=== PATIENT | male | born 1960 | race Hispanic/Latino ===

== ENCOUNTER 2018-11-08 15:11 | Observation (INO) | payer BC, SELFPAY ==
[2018-11-08] VITALS (8 sets, daily range): BP systolic 149–164; BP diastolic 87–92; PULSE 68–79; RESP 14–19; TEMP 36.7–37; O2SAT 94–98; BMI 23.8; BMI 23.7
--- NOTE | 2018-11-08 15:35 | EKG12_ITS ---
Test Reason : CHEST PAIN Blood Pressure : / mmHG Vent. Rate : 072 BPM Atrial Rate : 072 BPM P-R Int : 150 ms QRS Dur : 092 ms QT Int : 398 ms P-R-T Axes : 037 -16 029 degrees QTc Int : 435 ms Normal sinus rhythm Normal ECG Confirmed by GLENN BUTCHER, PERCY ([id number]), sound editor JANINA PICKETT ([id number]) on 11/12/2018 1:22:34 PM Referred By: Eulogio Fine Confirmed By:PERCY ELIZABETH MD
--- NOTE | 2018-11-08 15:37 | ED.VISSUMM ---
- ER Visit Summary Date of Service: 11/08/18 Chief Complaint: Chest pain hypertension History of Present Illness: The patient is a 58 M presenting for evaluation secondary to chest pain and hypertension. Patient has an underlying history of hyperlipidemia and hypertension. Patient currently has been having blood pressures this week as high as 170s. Patient states that his blood pressure spikes are associated with chest pain. He reports that he has had continuous chest pain over the course of the last 5 hours. He states that when he gets the pain is associated with dyspnea diaphoresis and some lightheadedness. There is no exertional component associated with this. Patient denies any cardiovascular history, he is never had a stress test. Physical Examination: Vital signs are within normal limits, patient is afebrile. General: Patient is well-nourished well-developed and in no acute distress. Head: Normocephalic, atraumatic Eyes: Pupils equal round and reactive bilaterally, extra occular motion intact bialterally ENT: Moist mucous membranes Neck: Supple, no lymphadenopathy, no JVD, no meningismus CVS: Heart regular rate and rhythm, no murmurs, rubs or gallops, radial pulses 2+ bilaterally Resp: Respirations nondistressed, lung sounds clear bilaterally Abdomen: Soft, nontender, nondistended, no palpable masses, normal bowel sounds Back: Nontender Extremities: Nontender, atraumatic, active full range of motion, no peripheral edema Skin: warm, no rashes, no petechia Neuro: Alert and oriented x 4, CN 2-12 intact, no lateralizing neurological defecits Psyc: Normal affect Test Results: EKG demonstrates sinus rate [address] segments, normal T waves, no evidence of acute ischemia or arrhythmia. CBC chemistry and troponin are negative. Chest x-ray negative. Emergency Department Course and Treatment: Patient presented secondary to chest pain. History sounded somewhat concerning, so workup was obtained which was found to be negative as noted above. Patient's heart score is 4, I believe he requires admission. I will discussed this with the hospitalist. Disposition: Admission Impression: 1. Chest pain This note was generated with [employer] software. It may contain incorrect words, spelling, and punctuation that were not noted in review of the chart prior to signing ED Disposition - Plan for ED Patient: Chief Complaint: Hypertension
--- NOTE | 2018-11-08 15:40 | RAD_ITS ---
STUDY: X-RAY CHEST REASON FOR EXAM: Male, 58 years old. Hypertension. Chest pain. TECHNIQUE: PA and lateral views of the chest. COMPARISON: None. FINDINGS: EKG electrodes are seen. Increased linear markings with areas of confluence in the lower lobes slightly more prominent on the left side in keeping with bibasilar atelectasis. There is no demonstrated pleural abnormality. Normal size heart. Normal mediastinum and brandon. Normal visualized pulmonary arteries. There is atherosclerotic tortuosity of the aortic arch and descending thoracic aorta. Normal visualized thoracic spine. Normal visualized ribs, clavicles, and shoulders. There is no demonstrated abnormality of the visualized soft tissue structures of the upper abdomen. RAD/Chest PA and Lateral IMPRESSION: Increased markings at the lung bases likely worse on the left side suggestive of bibasilar atelectasis. Electronically Signed: Matteo Jasso MD at 15:55 EST Tel [phone], Service support ,
[2018-11-08] MEDS: Aspirin 81 MG TAB.CHEW 324 MG PO (15:42)
[2018-11-08 15:48] LABS: Absolute Lymphocyte Count 2.13 X10^3/ul (0.83-4.51); Absolute Neutrophil Count 5.4 X10^3/uL (2.0-7.7); Basophil# 0.05 X10^3/uL; Basophil% 0.6 % (0-1); Eosinophil# 0.04 X10^3/uL; Eosinophils% 0.5 % (0-5); Hematocrit 44.7 % (40-54); Hemoglobin 15.4 g/dl (13.0-16.5); Lymphocyte # 2.13 X10^3/ul (4.0); Lymphocyte % 25.1 % (19-41); Mean Corp Hgb Conc 34.5 g/gl (32-36); Mean Corpuscular Hgb 28.8 pg (27.0-32.0); Mean Corpuscular Volume 83.6 fL (80-94); Mean Platelet Vol. 9.6 fl (6.2-12.0); Monocyte# 0.89 X10^3/uL; Monocyte% 10.5 % (0-10); Neutrophil # 5.36 X10^3/uL (2.7-7.7); Neutrophil % 63.2 % (47-70); Platelet Count 233 K/mm3 (150-450); RBC Distribution Width CV 12.9 % (11.6-14.6); RBC Distribution Width SD 39.2 fl (35.1-43.9); Red Blood Count 5.35 M/mm3 (4.6-6.2); White Blood Count 8.5 K/mm3 (4.4-11.0)
[2018-11-08 15:54] LABS: POSITIVE COUNT NO; POSITIVE DIFFERENTIAL NO; POSITIVE MORPHOLOGY NO
[2018-11-08 16:02] LABS: Anion Gap 9 (5-15); BUN 15 mg/dL (7-18); BUN/Creat Ratio 13.8 RATIO (10-20); Calcium,Total 8.2 mg/dL (8.5-10.1); Chloride 101 mmol/L (98-107); Creatinine, Serum 1.09 mg/dL (0.70-1.30); EST Glomerular Filtration Rate 74 mL/min (>60); Est Glom Filt Rate - Afr Amer 89 mL/min (>60); Estimated Creatinine Clearance 71.47 ml/min; Glucose 108 mg/dL (74-106); Potassium 3.5 mmol/L (3.5-5.1); Sodium Level 139 mmol/L (136-145)
--- NOTE | 2018-11-08 17:42 | PCM.HP.STD ---
Problem List (1) Chest pain Status: Acute (2) HTN (hypertension) Status: Chronic History of Present Illness Date of Admission: 11/08/18 Chief Complaint: chest pain The patient is a 58 year old M with a pmhx of htn who presents to the ER with c/o chest pain. He describes this as a midsternal ache that feels like he was punched in the chest with radiation straight through to the back, none to the arms or neck, and with associated SOB. It occurred while he was lifting something at work. He currently does not have any chest pain. He has had this for about 1 week. He has no hx of coronary disease. He had a stress test >10 years ago which was negative. He does not speak zimbabwean, his son is present and translating. He denies family hx of heart disease. He did smoke but quit more than 25 years ago. [] Past Medical History Past Medical History (Chronic Problems): Chronic Problems HTN (hypertension) (Chronic) Allergies No Known Allergies Allergy (Verified 11/08/18 15:12) Home Medications: Ambulatory Orders Medication Instructions Recorded Hydrochlorothiazide [Hctz] 25 mg PO DAILY 11/08/18 Lisinopril [Zestril] 40 mg PO DAILY 11/08/18 Meloxicam [Mobic] 15 mg PO DAILY 11/08/18 Pantoprazole Sodium [Protonix] 20 mg PO DAILY 11/08/18 Pravastatin [Pravachol] 80 mg PO QHS 11/08/18 Surgical History: no surgical history Psychiatric History: No pertinent psych hx Lives: With Family Smoking Status: Former smoker Tobacco Use: Non-smoker Alcohol: None Drugs: None - *Family History Maternal History Items: No pertinent history Paternal History Items: No pertinent history Review of Systems Constitutional: Denies: Chills, Fever, Weight Change HEENT: Denies: Head Aches, Sinus Congestion, Sinus Drainage Cardiovascular: Reports: Chest Pain. Denies: Edema, Heaviness, Light Headedness, Palpitations Respiratory: Reports: Shortness of Breath. Denies: Cough, Shortness of breath at rest, Sputum production Gastrointestinal: Denies: Abdominal Pain, Nausea, Vomiting Genitourinary: Denies: Dysuria Musculoskeletal: Denies: Joint Pain, Joint Tenderness Skin: Denies: Rash, Wounds Neurological: Denies: Numbness, Tingling, Focal weakness Psychiatric: Denies: Anxiety, Depression, Homicidal Ideations, Suicidal Ideations Hematologic/ Lymphatic: Denies: Easy Bruising, Easy Bleeding VTE Information - Inpt Only VTE Present on Admission: No VTE Mechan Device Prophylaxis: None VTE Pharm Prophylaxis ordered?: Yes Patient Problems: Active and Suspected Problems Chest pain (Acute) - Physical Exam General: Alert, Oriented x3, Cooperative HEENT: Atraumatic, PERRLA, EOMI, Normocephalic Neck: Supple, No JVD, Negative Carotid Bruits Lungs: Clear to auscultation, Normal air movement Cardiovascular: Regular rate, No murmurs Abdomen: Bowel Sounds Present, Soft, Non Tender Extremities: No edema, Capillary Refill Less than 3 Seconds Skin: No rashes, No breakdown Musculoskeletal: No Tenderness to Palpation of Joints or Extremities Neurological: Cranial nerves II-XII grossly intact Psych/Mental Status: Normal Affect, Appropriate Vital Signs Temp Pulse Resp BP Pulse Ox 98.1 F 73 19 H 151/89 H 94 11/08/18 15:13 11/08/18 17:06 11/08/18 17:06 11/08/18 17:06 11/08/18 17:06 Oxygen Delivery Method Room Air Weight: 157 lb Body Mass Index (BMI) 23.8 Laboratory Tests Past 24 Hrs 11/08/18 11/08/18 15:30 15:30 WBC 8.5 RBC 5.35 Hgb 15.4 Hct 44.7 MCV 83.6 MCH 28.8 MCHC 34.5 RDW 12.9 RDW Differential 39.2 Plt Count 233 MPV 9.6 Immature Gran % (Auto) 0.100 Neut % (Auto) 63.2 Lymph % (Auto) 25.1 Lawrence % (Auto) 10.5 H Eos % (Auto) 0.5 Baso % (Auto) 0.6 Absolute Neuts (auto) 5.4 Absolute Lymphs (auto) 2.13 Total Counted Not Reportable Sodium 139 Potassium 3.5 Chloride 101 Carbon Dioxide 29.0 Anion Gap 9 BUN 15 Creatinine 1.09 Estim Creat Clear Calc 71.47 Est GFR (MDRD) Af Amer 89 Est GFR (MDRD) Non-Af 74 BUN/Creatinine Ratio 13.8 Glucose 108 H Calcium 8.2 L Troponin I < 0.015 Assessment/Plan All Active Problems Chest pain (Acute) 1. Chest pain - trop neg, cxr with atelectasis, EKG neg. Admit to pcu, cycle enzymes, repeat EKG in AM, treadmill stress test in AM. Last stress was >10 years ago, negative at that time. 2. HTN - trend, continue home meds, mildly elevated in ER. 3. Former smoker DVT ppx: lovenox This patient was seen by Torin Curry PA-C under the supervision of Doctor Fine.
[2018-11-08] MEDS: Pravastatin 80 MG Tablet PO (21:04)
[2018-11-09 00:04] VITALS: BP 131/85; PULSE 65; RESP 16; TEMP 36.8; O2SAT 97
[2018-11-09 03:05] VITALS: PULSE 70
[2018-11-09 04:54] LABS: Absolute Lymphocyte Count 2.35 X10^3/ul (0.83-4.51); Absolute Neutrophil Count 4.6 X10^3/uL (2.0-7.7); Basophil# 0.05 X10^3/uL; Basophil% 0.7 % (0-1); Eosinophil# 0.05 X10^3/uL; Eosinophils% 0.7 % (0-5); Hematocrit 45.8 % (40-54); Hemoglobin 15.9 g/dl (13.0-16.5); Lymphocyte # 2.35 X10^3/ul (4.0); Lymphocyte % 30.6 % (19-41); Mean Corp Hgb Conc 34.7 g/gl (32-36); Mean Corpuscular Hgb 28.8 pg (27.0-32.0); Mean Platelet Vol. 9.5 fl (6.2-12.0); Monocyte# 0.65 X10^3/uL; Monocyte% 8.5 % (0-10); Neutrophil # 4.56 X10^3/uL (2.7-7.7); Neutrophil % 59.4 % (47-70); Platelet Count 220 K/mm3 (150-450); RBC Distribution Width SD 39.5 fl (35.1-43.9); Red Blood Count 5.52 M/mm3 (4.6-6.2); White Blood Count 7.7 K/mm3 (4.4-11.0)
[2018-11-09 04:55] LABS: POSITIVE COUNT NO; POSITIVE DIFFERENTIAL NO; POSITIVE MORPHOLOGY NO
[2018-11-09] MEDS: Lisinopril 40 MG Tablet PO (04:57)
[2018-11-09] MEDS: Pantoprazole Sodium 20 MG Tablet PO (04:57)
[2018-11-09 05:00] VITALS: BP 133/88; PULSE 60; RESP 16; TEMP 36.9; O2SAT 99
[2018-11-09 05:01] LABS: Prothrombin Time (Protime)PT. 13.4 SECONDS (11.7-14.9)
[2018-11-09 05:02] LABS: Partial Thromboplast Time 30.4 Seconds (24.1-36.2)
[2018-11-09 05:18] LABS: Anion Gap 9 (5-15); BUN 13 mg/dL (7-18); BUN/Creat Ratio 14.2 RATIO (10-20); Calcium,Total 8.6 mg/dL (8.5-10.1); Chloride 103 mmol/L (98-107); Creatinine, Serum 0.92 mg/dL (0.70-1.30); EST Glomerular Filtration Rate 90 mL/min (>60); Est Glom Filt Rate - Afr Amer 109 mL/min (>60); Estimated Creatinine Clearance 84.67 ml/min; Glucose 95 mg/dL (74-106); Sodium Level 139 mmol/L (136-145)
--- NOTE | 2018-11-09 05:55 | EKG12_ITS ---
Test Reason : AM EKG Blood Pressure : / mmHG Vent. Rate : 061 BPM Atrial Rate : 061 BPM P-R Int : 154 ms QRS Dur : 096 ms QT Int : 424 ms P-R-T Axes : 046 -09 024 degrees QTc Int : 426 ms Normal sinus rhythm Normal ECG When compared with ECG of 08-NOV-2018 17:37, MANUAL COMPARISON REQUIRED, DATA IS UNCONFIRMED Confirmed by GLENN BUTCHER, PERCY ([id number]), editorial project manager JANINA PICKETT ([id number]) on 11/12/2018 2:13:47 PM Referred By: Eulogio Fine Confirmed By:PERCY ELIZABETH MD
[2018-11-09 08:56] VITALS: BP 126/82; PULSE 71; RESP 16; TEMP 36.8; O2SAT 99
[2018-11-09 09:00] VITALS: PULSE 76
--- NOTE | 2018-11-09 09:32 | STRESSREP ---
Stress Test Report Exercise myocardial perfusion stress test. 58-year-old man with a history of chest pain. Medications, hydrochlorothiazide, lisinopril, Protonix. Stress protocol: Resting EKG demonstrates normal sinus rhythm with a rate of 66 bpm normal intervals are noted resting blood pressure 138/80 mmHg. The patient exercised according to regular Chavez protocol for total duration of 10 minutes completing 1 minute into stage IV of the Chavez protocol the maximum heart rate attained was 160 bpm which was 98% of maximum predicted heart rate the maximum workload was 11.7 metabolic equivalents. At rest there were no ST or T wave changes noted suggest ischemia peak exercise upsloping ST changes were noted with normally the criteria for ischemia. The resting blood pressure is 138/90 with a peak blood pressure 168/90 mmHg. No clinical angina was noted. Myocardial perfusion protocol. 11.6 mCi of technetium 99m sestamibi was injected at rest. The patient exercised to consider regular Chavez protocol for 10 minutes and at peak exercise 33.7 mCi of technetium 99m sestamibi was injected stress images were obtained stress and rest images were reconstructed and compared in the short axis vertical long horizontal long axis. Gated images were also obtained per Perfusion SPECT analysis: Review of the stress images demonstrate normal uptake of tracer noted in all areas of the myocardium. The resting images similarly demonstrate normal uptake of tracer noted in all areas of myocardium. No areas of reversibility are noted suggest ischemia. Gated SPECT analysis: The gated ejection fraction is over 80%. Conclusion: Normal exercise myocardial perfusion stress test at a high workload. Preserved ejection fraction.
--- NOTE | 2018-11-09 10:22 | DCINST_ITS ---
- Discharge Diagnoses Current Active Problems: Current Active and Chronic Problems Chest pain (Acute) HTN (hypertension) (Chronic) You will use the following diet at home:: Cardiac Your food should be the consistency of: Regular Your liquids should be the consistency of: Regular/Thin Discharge Activity: Return to Normal Activity Allergies/Adverse Reactions: Allergies No Known Allergies Allergy (Verified 11/08/18 15:12) Medications to take at Discharge Lisinopril [Zestril] 40 mg PO DAILY 11/08/18 Meloxicam [Mobic] 15 mg PO DAILY 11/08/18 Pantoprazole Sodium [Protonix] 20 mg PO DAILY 11/08/18 Pravastatin [Pravachol] 80 mg PO QHS 11/08/18 Hydrochlorothiazide [Hctz] 25 mg PO DAILY #30 tablet 11/09/18 The following prescriptions were given: Hydrochlorothiazide [Hctz] 25 mg PO DAILY #30 tablet Primary Care Physician: Care Physician,No Primary [Primary Care Provider] - Please follow up with your Primary Care Physician in: 1-2 weeks Test Results: Test results from this visit will be discussed in further detail at your follow- up appointment, if applicable. Proposed Discharge Date: 11/09/18
[2018-11-09] MEDS: hydroCHLOROthiazide 12.5mg 12.5 MG PO (10:24)
[2018-11-09] MEDS: Meloxicam 15 MG Tablet PO (10:25)
[2018-11-09 12:14] VITALS: BP 132/81; PULSE 90; RESP 18; TEMP 36.9; O2SAT 98
--- NOTE | 2018-11-09 13:04 | PCM.DC.SUM ---
<Torin Curry - Last Filed: 11/09/18 13:04> Discharge Date and Diagnosis Date of Admission: 11/08/18 Date of Discharge: 11/09/18 - Primary Discharge Diagnosis Chest pain - musculoskeletal HTN Former smoker - Secondary Discharge Diagnosis Chronic Problems HTN (hypertension) (Chronic) Hospital Course and Treatment Imaging Results: 11/09/18 05:55 Nuclear Stress Test - Treadmil [NM] AM (NON MEDS) Operations: None Procedures: Stress test Summary of Care Provided: Hospital course: The patient is a 58 year old M with pmhx of HTN and he is a former smoker, who presented to the ER with c/o midsternal CP described as like being punched in the chest, radiating into the back, that occurred with exertion and was associated with some SOB. He had a negative EKG, negative troponin, negative CXR. He had not had a stress test in >10 years. He was admitted to the PCU on tele. Troponin was cycled, and remained negative. No events on telemetry overnight. Stress test the following morning was negative. Is felt that his chest pain was musculoskeletal in origin. Patient complained of persistently elevated blood pressure at home, it was somewhat elevated while here. It was agreed that he would increase his hydrochlorothiazide to 25 daily. He was discharged home in stable condition. He should follow-up with his primary care physician in 1-2 weeks. This patient was seen by Torin Curry PA-C under the supervision of Doctor Santoro. [] - Physical Exam General: Alert, Oriented x3, Cooperative HEENT: Atraumatic, PERRLA, EOMI, Normocephalic Neck: Supple, No JVD, Negative Carotid Bruits Lungs: Clear to auscultation, Normal air movement Cardiovascular: Regular rate, No murmurs Abdomen: Bowel Sounds Present, Soft, Non Tender Extremities: No edema, Capillary Refill Less than 3 Seconds Skin: No rashes, No breakdown Musculoskeletal: No Tenderness to Palpation of Joints or Extremities Neurological: Cranial nerves II-XII grossly intact Psych/Mental Status: Normal Affect, Appropriate, Alert and oriented to time, place, person, mood and affect Vital Signs Temp Pulse Resp BP Pulse Ox 98.5 F 90 18 132/81 H 98 11/09/18 12:14 11/09/18 12:14 11/09/18 12:14 11/09/18 12:14 11/09/18 12:14 Oxygen Delivery Method Room Air Weight: 156 lb Body Mass Index (BMI) 23.7 Intake and Output for Last 24 Hours 11/07/18 11/08/18 11/09/18 23:59 23:59 23:59 Intake Total 120 / 120 850 / 850 Balance 120 / 120 850 / 850 Laboratory Tests Past 24 Hrs 11/08/18 11/08/18 11/08/18 15:30 15:30 18:50 WBC 8.5 RBC 5.35 Hgb 15.4 Hct 44.7 MCV 83.6 MCH 28.8 MCHC 34.5 RDW 12.9 RDW Differential 39.2 Plt Count 233 MPV 9.6 Immature Gran % (Auto) 0.100 Neut % (Auto) 63.2 Lymph % (Auto) 25.1 Treasure % (Auto) 10.5 H Eos % (Auto) 0.5 Baso % (Auto) 0.6 Absolute Neuts (auto) 5.4 Absolute Lymphs (auto) 2.13 Total Counted Not Reportable PT INR APTT Sodium 139 Potassium 3.5 Chloride 101 Carbon Dioxide 29.0 Anion Gap 9 BUN 15 Creatinine 1.09 Estim Creat Clear Calc 71.47 Est GFR (MDRD) Af Amer 89 Est GFR (MDRD) Non-Af 74 BUN/Creatinine Ratio 13.8 Glucose 108 H Calcium 8.2 L Troponin I < 0.015 < 0.015 11/09/18 11/09/18 11/09/18 04:40 04:40 04:40 WBC 7.7 RBC 5.52 Hgb 15.9 Hct 45.8 MCV 83.0 MCH 28.8 MCHC 34.7 RDW 13.0 RDW Differential 39.5 Plt Count 220 MPV 9.5 Immature Gran % (Auto) 0.100 Neut % (Auto) 59.4 Lymph % (Auto) 30.6 Treasure % (Auto) 8.5 Eos % (Auto) 0.7 Baso % (Auto) 0.7 Absolute Neuts (auto) 4.6 Absolute Lymphs (auto) 2.35 Total Counted Not Reportable PT 13.4 INR 1.0 APTT 30.4 Sodium 139 Potassium 4.0 Chloride 103 Carbon Dioxide 27.0 Anion Gap 9 BUN 13 Creatinine 0.92 Estim Creat Clear Calc 84.67 Est GFR (MDRD) Af Amer 109 Est GFR (MDRD) Non-Af 90 BUN/Creatinine Ratio 14.2 Glucose 95 Calcium 8.6 Troponin I 11/09/18 04:40 WBC RBC Hgb Hct MCV MCH MCHC RDW RDW Differential Plt Count MPV Immature Gran % (Auto) Neut % (Auto) Lymph % (Auto) Treasure % (Auto) Eos % (Auto) Baso % (Auto) Absolute Neuts (auto) Absolute Lymphs (auto) Total Counted PT INR APTT Sodium Potassium Chloride Carbon Dioxide Anion Gap BUN Creatinine Estim Creat Clear Calc Est GFR (MDRD) Af Amer Est GFR (MDRD) Non-Af BUN/Creatinine Ratio Glucose Calcium Troponin I < 0.015 Discharge Diet: Low fat/ Low Cholesterol, 2000 mg Sodium Diet Discharge Activity: Return to Normal Activity Home Medications: Medications to take at Discharge Lisinopril [Zestril] 40 mg PO DAILY 11/08/18 Meloxicam [Mobic] 15 mg PO DAILY 11/08/18 Pantoprazole Sodium [Protonix] 20 mg PO DAILY 11/08/18 Pravastatin [Pravachol] 80 mg PO QHS 11/08/18 Hydrochlorothiazide [Hctz] 25 mg PO DAILY #30 tablet 11/09/18 Following Prescrptions Were Given to Patient: Hydrochlorothiazide [Hctz] 25 mg PO DAILY #30 tablet Primary Care Physician: Care Physician,No Primary [Primary Care Provider] - Please follow up with your Primary Care Physician in: 1-2 weeks Disposition: Home Minutes spent on discharge:: 35 Patient Condition:: Stable Medical Necessity - Tobacco Use Smoking Status: Former smoker Tobacco Use: Non-smoker Meaningful Use Info Meaningful Use Diagnoses (Choose all that apply): None applicable <Evans Santoro - Last Filed: 11/09/18 13:37> Discharge Date and Diagnosis - Secondary Discharge Diagnosis Chronic Problems HTN (hypertension) (Chronic) Hospital Course and Treatment Imaging Results: 11/09/18 05:55 Nuclear Stress Test - Treadmil [NM] AM (NON MEDS) Summary of Care Provided: This patient was seen in conjunction with Torin Curry PA-C . I have independently interviewed and examined the patient and reviewed pertinent historical, laboratory, and other data. Please refer to Torin Curry PA-C note for details of this patient's presentation, findings, and recommendations. I have reviewed Torin Curry PA-C note and concur with documented findings. In brief, patient 58-year-old Algerian-speaking gentleman with history of hypertension who presented with chest pain. Patient was placed on on a monitored bed NH was ruled out with serial cardiac enzymes. Patient subsequently underwent a nuclear stress test which is negative for stress-induced ischemia. - Physical Exam Vital Signs Temp Pulse Resp BP Pulse Ox 98.5 F 90 18 132/81 H 98 11/09/18 12:14 11/09/18 12:14 11/09/18 12:14 11/09/18 12:14 11/09/18 12:14 Oxygen Delivery Method Room Air Weight: 70.76 kg Body Mass Index (BMI) 23.7 Intake and Output for Last 24 Hours 11/07/18 11/08/18 11/09/18 23:59 23:59 23:59 Intake Total 120 / 120 850 / 850 Balance 120 / 120 850 / 850 Laboratory Tests Past 24 Hrs 11/08/18 11/08/18 11/08/18 15:30 15:30 18:50 WBC 8.5 RBC 5.35 Hgb 15.4 Hct 44.7 MCV 83.6 MCH 28.8 MCHC 34.5 RDW 12.9 RDW Differential 39.2 Plt Count 233 MPV 9.6 Immature Gran % (Auto) 0.100 Neut % (Auto) 63.2 Lymph % (Auto) 25.1 Treasure % (Auto) 10.5 H Eos % (Auto) 0.5 Baso % (Auto) 0.6 Absolute Neuts (auto) 5.4 Absolute Lymphs (auto) 2.13 Total Counted Not Reportable PT INR APTT Sodium 139 Potassium 3.5 Chloride 101 Carbon Dioxide 29.0 Anion Gap 9 BUN 15 Creatinine 1.09 Estim Creat Clear Calc 71.47 Est GFR (MDRD) Af Amer 89 Est GFR (MDRD) Non-Af 74 BUN/Creatinine Ratio 13.8 Glucose 108 H Calcium 8.2 L Troponin I < 0.015 < 0.015 11/09/18 11/09/18 11/09/18 04:40 04:40 04:40 WBC 7.7 RBC 5.52 Hgb 15.9 Hct 45.8 MCV 83.0 MCH 28.8 MCHC 34.7 RDW 13.0 RDW Differential 39.5 Plt Count 220 MPV 9.5 Immature Gran % (Auto) 0.100 Neut % (Auto) 59.4 Lymph % (Auto) 30.6 Treasure % (Auto) 8.5 Eos % (Auto) 0.7 Baso % (Auto) 0.7 Absolute Neuts (auto) 4.6 Absolute Lymphs (auto) 2.35 Total Counted Not Reportable PT 13.4 INR 1.0 APTT 30.4 Sodium 139 Potassium 4.0 Chloride 103 Carbon Dioxide 27.0 Anion Gap 9 BUN 13 Creatinine 0.92 Estim Creat Clear Calc 84.67 Est GFR (MDRD) Af Amer 109 Est GFR (MDRD) Non-Af 90 BUN/Creatinine Ratio 14.2 Glucose 95 Calcium 8.6 Troponin I 11/09/18 04:40 WBC RBC Hgb Hct MCV MCH MCHC RDW RDW Differential Plt Count MPV Immature Gran % (Auto) Neut % (Auto) Lymph % (Auto) Treasure % (Auto) Eos % (Auto) Baso % (Auto) Absolute Neuts (auto) Absolute Lymphs (auto) Total Counted PT INR APTT Sodium Potassium Chloride Carbon Dioxide Anion Gap BUN Creatinine Estim Creat Clear Calc Est GFR (MDRD) Af Amer Est GFR (MDRD) Non-Af BUN/Creatinine Ratio Glucose Calcium Troponin I < 0.015 Code Visit OBSV E&M: 78269 Observation care discharge
--- OUTSIDE RECORDS SUMMARY | 2019-02-10 09:17 | XMS RPT_ITS ---
:1960 Author Organization [place] Care Team Providers Name Role Phone RADHA SMITH (PA) Attending Unavailable RADHA SMITH (PA) Attending Unavailable RADHA SMITH (PA) Referring Unavailable GINA VAUGHN (FURNITURE ARRANGER) Attending Unavailable RADHA SMITH (PA) Referring Unavailable RADHA SMITH (PA) Referring Unavailable RADHA SMITH (PA) Attending Unavailable RADHA SMITH (PA) Referring Unavailable GILES, NAT Attending Unavailable GILES, NAT Referring Unavailable OLDER, GINA (FURNITURE ARRANGER) Referring Unavailable JEFF BENAVIDEZ (PA) Attending Unavailable GILES, NAT Referring Unavailable GILES, NAT Attending Unavailable GILES, NAT Referring Unavailable OLDER, GINA (FURNITURE ARRANGER) Attending Unavailable GILES, NAT Referring Unavailable OLDER, GINA (FURNITURE ARRANGER) Referring Unavailable OLDER, GINA (FURNITURE ARRANGER) Attending Unavailable GILES, NAT Referring Unavailable OLDER, GINA (FURNITURE ARRANGER) Attending Unavailable GILES, NAT Referring Unavailable OLDER, GINA (FURNITURE ARRANGER) Attending Unavailable GILES, NAT Referring Unavailable TAHIRA DE LUNA DO Attending Unavailable ETHAN SALMERON, HATTIE Primary Care Unavailable Primay Care Physicia, No Primary Care Unavailable Eulogio Fine Admitting Unavailable Tereletsky, Eulogio Referring Unavailable Evans Santoro Attending Unavailable Babatunde, Eulogio Admitting Unavailable Tereletsky, Eulogio Referring Unavailable Primay Care Physicia, No Primary Care Unavailable Eulogio Fine Consulting Unavailable Eulogio Fine Attending Unavailable Tereletssulaiman, Eulogio Admitting Unavailable Tereletsky, Eulogio Referring Unavailable Primay Care Physicia, No Primary Care Unavailable Evans Santoro Consulting Unavailable Evans Santoro Attending Unavailable Braxton Soliman Attending Unavailable Josefinaeletssulaiman, Eulogio Referring Unavailable PROBLEMS PROBLEMS DATE TYPE CONDITION / CODE ATTENDING STATUS SOURCE 12/01/2018 Unknown R07.9 - Chest pain, JourdanBraxton harry Active [place] unspecified / Community R07.9(ICD-10) Hospital Repository 02/19/2018 Active Other hyperlipidemia NA Active [place] / E78.49(ICD-10) Clinic Main [place] Repository 02/19/2018 Active Other hyperlipidemia NA Active [place] / E78.4(ICD-10) Clinic Main [place] Repository 02/22/2018 Active Hyperlipidemia, NA Active [place] unspecified / Clinic Main E78.5(ICD-10) [place] Repository 02/22/2018 Active Encounter for NA Active [place] screening for Clinic Main malignant neoplasm [place] of prostate / Repository Z12.5(ICD-10) 02/22/2018 Active Encounter for NA Active [place] screening for other Clinic Main viral diseases / [place] Z11.59(ICD-10) Repository 01/27/2018 Active Essential (primary) NA Active [place] hypertension / Clinic Main I10(ICD-10) [place] Repository 02/09/2018 Active Unspecified rotator NA Active [place] cuff tear or rupture Clinic Main of left shoulder, [place] not specified as Repository traumatic / M75.102(ICD-10) 01/06/2018 Active Unknown / VETOVITZ, Active [place] UNK(Unknown) RADHA (KARINA) Clinic Main [place] Repository PROCEDURES PROCEDURES No Procedure Records FoundRESULTS RESULTS PROGRESS Observed: 11/30/2018 Status: COMPLETED Source: [facility] 3:27 PM [facility] REPOSITORY HNO ID: [id number] Author: Gina (Chavo) Older Service: (none) Author Type: Nurse Practitioner Type: Progress Notes Filed: 11/30/2018 3:56 PM Note Text: CC: hospital follow-up HPI Anh Flower is a 58 year old male who presents today for hospital follow-up. Facility: [facility] Date of visit: 11/08 to 11/09 Reason for visit: chest pain, sent from this office to ER Hospital course: EKG, chest x-ray, cycled troponin negative. Stress test normal. Diagnosis: musculoskeletal chest pain, hypertension Discharge: Dose of HCTZ Increased to 25 mg daily Current symptoms: Today patient reports no further episodes of chest pain. Denies shortness of breath, heart palpitations, edema, PND, orthopnea. Taking BP medications as prescribed. BP at home has been in the 120's over 80's. Overall feeling well. Denies any concerns or issues today. REVIEW OF SYSTEMS See HPI PAST MEDICAL HISTORY Diagnosis Date - Diverticulosis 12/05/2014 - Essential hypertension - Hemorrhoids 2014 - Hyperlipidemia PAST SURGICAL HISTORY Procedure Laterality Date - COLONOSCOPY 2013 indirect references. Diverticulosis mentioned. - HEMORRHOIDAL 2014 ALLERGIES Patient has no known allergies. MEDICATIONS pravastatin (PRAVACHOL) 80 mg tablet Take 1 tablet by mouth daily at bedtime. lisinopril (ZESTRIL, PRINIVIL) 40 mg tablet Take 1 tablet by mouth once daily. meloxicam (MOBIC) 15 mg tablet Take 1 tablet by mouth once daily. pantoprazole DR (PROTONIX) 20 mg tablet Take 1 tablet by mouth daily before breakfast. Take on empty stomach, 1/2 hr before meal. hydroCHLOROthiazide (HYDRODIURIL, ESIDRIX) 25 mg tablet Take 1 tablet by mouth once daily. terbinafine HCl (LAMISIL) 250 mg tablet Take 1 tablet by mouth once daily. ACETAMINOPHEN (TYLENOL ORAL) Take 1,000 mg by mouth twice daily. FAMILY HISTORY Problem Relation Age of Onset - Diabetes Mother - Hypertension Father - Cancer Father - Cancer Sister GI Social History Substance Use Topics - Smoking status: Never Smoker - Smokeless tobacco: Never Used - Alcohol use No PHYSICAL EXAM BP 120/88 Pulse 68 Temp 36.8 ?C (98.2 ?F) (Temporal Artery) Resp 14 Wt 68.5 kg (151 lb) SpO2 98% BMI 25.13 kg/m? General Appearance: well appearing, in no acute distress, alert Lungs: lungs clear to auscultation. No wheezing, rhonchi, rales Heart: RRR without murmur, gallop, or rubs. No ectopy BP CONTROLLED (<130/80) due on 1978 ANNUAL PCP TEAM CHRONIC DISEASE VISIT due on 11/08/2019 DIABETES SCREEN due on 09/21/2021 PROSTATE CANCER SCREENING DISCUSSION due on 02/22/2023 LIPID SCREEN due on 09/21/2023 COLORECTAL CANCER SCREENING,SEE MODIFIER due on 12/05/2024 DTAP,TDAP,TD(2 - Td) due on 09/19/2027 INFLUENZA Completed HEPATITIS C SCREENING Completed ASSESSMENT/PLAN: 1. Essential hypertension - ICD9: 401.9, ICD10: I10 (primary diagnosis) - good control - Continue current medication(s) - Encouraged dietary sodium restriction/DASH diet - Recommended regular aerobic exercise. - Recommend home blood pressure monitoring, to bring results in on next visit - Recheck in 6 months, sooner should new symptoms or problems arise. - Reviewed risks of HTN and principles of treatment 2. Hyperlipidemia, unspecified hyperlipidemia type - ICD9: 272.4, ICD10: E78.5 - suboptimal control based on previous labs - Continue current medication. 3. Chest pain Resolved. Cardiac work-up during admission negative, attributed to musculoskeletal cause. Prescription instructions reviewed with patient as applicable. Potential red flag symptoms discussed with the patient. Reviewed appropriate action plan to take if red flag symptoms occur. Patient agreeable to treatment plan. Gina Vaughn APRN.CHAVO CNOV Observed: 11/30/2018 Status: COMPLETED Source: [place] 3:20 PM [facility] REPOSITORY Office Visit (INTMWS) ANH WALLIS ([id number]) 1960 M COMFORT Date Time Provider Department 11/30/18 3:20 PM GINA VAUGHN (CHAVO) INTMWS During your visit today, we recorded the following information about you: Temperature Pulse Respiration Blood pressure 98.2 degrees 68/minute 14/minute 120/88 Weight 68.5 kg Gina Vaughn, [employer]OP[employer] MANAGERSONIA 11/30/2018 3:56 PM Signed CC: hospital follow-up HPI Anh Flower is a 58 year old male who presents today for hospital follow-up. Facility: [facility] Date of visit: 11/08 to 11/09 Reason for visit: chest pain, sent from this office to ER Hospital course: EKG, chest x-ray, cycled troponin negative. Stress test normal. Diagnosis: musculoskeletal chest pain, hypertension Discharge: Dose of HCTZ Increased to 25 mg daily Current symptoms: Today patient reports no further episodes of chest pain. Denies shortness of breath, heart palpitations, edema, PND, orthopnea. Taking BP medications as prescribed. BP at home has been in the 120's over 80's. Overall feeling well. Denies any concerns or issues today. REVIEW OF SYSTEMS See [facility] PAST MEDICAL HISTORY Diagnosis Date - Diverticulosis 12/05/2014 - Essential hypertension - Hemorrhoids 2014 - Hyperlipidemia PAST SURGICAL HISTORY Procedure Laterality Date - COLONOSCOPY 2013 indirect references. Diverticulosis mentioned. - HEMORRHOIDAL 2015 ALLERGIES Patient has no known allergies. MEDICATIONS pravastatin (PRAVACHOL) 80 mg tablet Take 1 tablet by mouth daily at bedtime. lisinopril (ZESTRIL, PRINIVIL) 40 mg tablet Take 1 tablet by mouth once daily. meloxicam (MOBIC) 15 mg tablet Take 1 tablet by mouth once daily. pantoprazole DR (PROTONIX) 20 mg tablet Take 1 tablet by mouth daily before breakfast. Take on empty stomach, 1/2 hr before meal. hydroCHLOROthiazide (HYDRODIURIL, ESIDRIX) 25 mg tablet Take 1 tablet by mouth once daily. terbinafine HCl (LAMISIL) 250 mg tablet Take 1 tablet by mouth once daily. ACETAMINOPHEN (TYLENOL ORAL) Take 1,000 mg by mouth twice daily. FAMILY HISTORY Problem Relation Age of Onset - Diabetes Mother - Hypertension Father - Cancer Father - Cancer Sister GI Social History Substance Use Topics - Smoking status: Never Smoker - Smokeless tobacco: Never Used - Alcohol use No PHYSICAL EXAM BP 120/88 Pulse 68 Temp 36.8 ?C (98.2 ?F) (Temporal Artery) Resp 14 Wt 68.5 kg (151 lb) SpO2 98% BMI 25.13 kg/m? General Appearance: well appearing, in no acute distress, alert Lungs: lungs clear to auscultation. No wheezing, rhonchi, rales Heart: RRR without murmur, gallop, or rubs. No ectopy BP CONTROLLED (<130/80) due on 1978 ANNUAL PCP TEAM CHRONIC DISEASE VISIT due on 11/08/2019 DIABETES SCREEN due on 09/21/2021 PROSTATE CANCER SCREENING DISCUSSION due on 02/22/2023 LIPID SCREEN due on 09/21/2023 COLORECTAL CANCER SCREENING,SEE MODIFIER due on 12/05/2024 DTAP,TDAP,TD(2 - Td) due on 09/19/2027 INFLUENZA Completed HEPATITIS C SCREENING Completed ASSESSMENT/PLAN: 1. Essential hypertension - ICD9: 401.9, ICD10: I10 (primary diagnosis) - good control - Continue current medication(s) - Encouraged dietary sodium restriction/DASH diet - Recommended regular aerobic exercise. - Recommend home blood pressure monitoring, to bring results in on next visit - Recheck in 6 months, sooner should new symptoms or problems arise. - Reviewed risks of HTN and principles of treatment 2. Hyperlipidemia, unspecified hyperlipidemia type - ICD9: 272.4, ICD10: E78.5 - suboptimal control based on previous labs - Continue current medication. 3. Chest pain Resolved. Cardiac work-up during admission negative, attributed to musculoskeletal cause. Prescription instructions reviewed with patient as applicable. Potential red flag symptoms discussed with the patient. Reviewed appropriate action plan to take if red flag symptoms occur. Patient agreeable to treatment plan. Gina Vaughn APRN.FURNITURE ARRANGER Referring Provider: BRUNO GILES [[id number]] Allergies As of Date: 11/30/2018 (No Known Allergies) Date Reviewed: 11/30/2018 Reviewed by: Yasmeen N Nenadal Main [place] - Fully Assessed Primary Visit Diagnosis:Essential hypertension [I10] Other Visit Diagnosis:Hyperlipidemia, unspecified hyperlipidemia type [E78.5] Order(s):meloxicam (MOBIC) 15 mg tabletTake 1 tablet by mouth once daily.Disp: 30 tabletRfl: 5 Prescriptions as of 11/30/2018 Sig: MELOXICAM 15 MG TABLET Take 1 tablet by mouth once d* PRAVASTATIN 80 MG TABLET Take 1 tablet by mouth daily * LISINOPRIL 40 MG TABLET Take 1 tablet by mouth once d* PANTOPRAZOLE 20 MG TABLET,DEL* Take 1 tablet by mouth daily * HYDROCHLOROTHIAZIDE 25 MG TAB* Take 1 tablet by mouth once d* TERBINAFINE HCL 250 MG TABLET Take 1 tablet by mouth once d* TYLENOL ORAL Take 1,000 mg by mouth twice * Problem List As Of Date 11/30/2018 Noted Resolved Hematuria [R31.9] INVALID FOR* Right flank pain [R10.9] INVALID FOR*02/19/2018 Essential hypertension [I10] Hyperlipidemia, unspecified [E78.5] Left shoulder pain [M25.512] INVALID FOR* Prescriptions ordered this encounter Disp Refills Start End MELOXICAM 15 MG TABLET 30 t* 5 11/30/2018 Route: ORAL Sig: Take 1 tablet by mouth once daily. Medications Discontinued During This Encounter meloxicam (MOBIC) 15 mg tablet 30 t* 2 09/21/2018 11/30/2018 Route: ORAL Sig: Take 1 tablet by mouth once daily. Disc: Reason for discontinue is not on file. Encounter Status:Closed by GINA VAUGHN CNP on 11/30/18 12 LEAD ELECTROCARDIOGRAM Observed: 11/12/2018 Status: F Source: [place] 2:14 PM [facility] [place] Cardiovascular Services [address] [place] [address] 12 Lead EKG 11/09/18 0534 MR#: [id number] Acct: [id number] Name: ANH RAMIREZ Kenny Rep #: [id number] : 1960 58 From: Braxton Soliman MD Attending Dr: Evans Santoro MD Status: DIS NEIDA Ordering Dr: Edmond Morgan MD Date: 11/09/18 Location: [facility] Sex: M H Admitted: 11/08/18 Test Reason : AM EKG Blood Pressure : / mmHG Vent. Rate : 061 BPM Atrial Rate : 061 BPM P-R Int : 154 ms QRS Dur : 096 ms QT Int : 424 ms P-R-T Axes : 046 -09 024 degrees QTc Int : 426 ms Normal sinus rhythm Normal ECG When compared with ECG of 08-NOV-2018 17:37, MANUAL COMPARISON REQUIRED, DATA IS UNCONFIRMED Confirmed by BRAXTON SOLIMAN MD ([id number]), JANINA Taylor ([id number]) on 11/12/2018 2:13:47 PM Referred By: Eulogio Fine Confirmed By:BRAXTON SOLIMAN MD 11/12/18 1413 Date Braxton Soliman MD CC: No Primary Care Physician; Evans Santoro MD; Eulogio Fine DO; Edmond Morgan MD Signed 12 LEAD ELECTROCARDIOGRAM Observed: 11/12/2018 Status: F Source: [place] 1:22 PM [facility] Cardiovascular Services [address] [place] [id number] 12 Lead EKG 11/08/18 1522 MR#: [id number] Acct: [id number] Name: ANH RAMIREZ Rep #: [id number] : 1960 58 From: Braxton Soliman MD Attending Dr: Evans Santoro MD Status: DIS NEIDA Ordering Dr: Servando De Paz MD Date: 11/08/18 Location: [facility] Sex: M H Admitted: 11/08/18 Test Reason : CHEST PAIN Blood Pressure : / mmHG Vent. Rate : 072 BPM Atrial Rate : 072 BPM P-R Int : 150 ms QRS Dur : 092 ms QT Int : 398 ms P-R-T Axes : 037 -16 029 degrees QTc Int : 435 ms Normal sinus rhythm Normal ECG Confirmed by BRAXTON SOLIMAN MD ([id number]), assistant editor JANINA PICKETT ([id number]) on 11/12/2018 1:22:34 PM Referred By: Eulogio Fine Confirmed By:BRAXTON SOLIMAN MD 11/12/18 1322 Date Braxton Soliman MD CC: No Primary Care Physician; Evans Santoro MD; Eulogio Fine DO; Servando De Paz Signed DISCHARGE SUMMARY Observed: 11/09/2018 Status: F Source: [place] 1:38 PM [facility] Medical Records Department [address] [place] [address] Discharge Summary 11/09/18 1304 MR#: [id number] Acct: [id number] Name: ANH RAMIREZ Rep #: [id number] : 1960 58 From: Torin COLLINS PCP: Care Physician, No Primary Status: DIS NEIDA Y Location: [place] [address]-1 <Torin Curry - Last Filed: 11/09/18 13:04> Discharge Date and Diagnosis Date of Admission: 11/08/18 Date of Discharge: 11/09/18 - Primary Discharge Diagnosis Chest pain - musculoskeletal HTN Former smoker - Secondary Discharge Diagnosis Chronic Problems HTN (hypertension) (Chronic) Hospital Course and Treatment Imaging Results: 11/09/18 05:55 Nuclear Stress Test - Treadmil [NM] AM (NON MEDS) Operations: None Procedures: Stress test Summary of Care Provided: Hospital course: The patient is a 58 year old M with pmhx of HTN and he is a former smoker, who presented to the ER with c/o midsternal CP described as like being punched in the chest, radiating into the back, that occurred with exertion and was associated with some SOB. He had a negative EKG, negative troponin, negative CXR. He had not had a stress test in >10 years. He was admitted to the PCU on tele. Troponin was cycled, and remained negative. No events on telemetry overnight. Stress test the following morning was negative. Is felt that his chest pain was musculoskeletal in origin. Patient complained of persistently elevated blood pressure at home, it was somewhat elevated while here. It was agreed that he would increase his hydrochlorothiazide to 25 daily. He was discharged home in stable condition. He should follow-up with his primary care physician in 1-2 weeks. This patient was seen by Torin Curry PA-C under the supervision of Doctor Yvan. [] - Physical Exam General: Alert, Oriented x3, Cooperative HEENT: Atraumatic, PERRLA, EOMI, Normocephalic Neck: Supple, No JVD, Negative Carotid Bruits Lungs: Clear to auscultation, Normal air movement Cardiovascular: Regular rate, No murmurs Abdomen: Bowel Sounds Present, Soft, Non Tender Extremities: No edema, Capillary Refill Less than 3 Seconds Skin: No rashes, No breakdown Musculoskeletal: No Tenderness to Palpation of Joints or Extremities Neurological: Cranial nerves II-XII grossly intact Psych/Mental Status: Normal Affect, Appropriate, Alert and oriented to time, place, person, mood and affect Vital Signs Temp Pulse Resp BP Pulse Ox 98.5 F 90 18 132/81 H 98 11/09/18 12:14 11/09/18 12:14 11/09/18 12:14 11/09/18 12:14 11/09/18 12:14 Oxygen Delivery Method Room Air Weight: 156 lb Body Mass Index (BMI) 23.7 Intake and Output for Last 24 Hours Intake Total 120 / 120 850 / 850 Balance 120 / 120 850 / 850 Laboratory Tests Past 24 Hrs WBC RBC Hgb Hct MCV MCH MCHC RDW RDW Differential Plt Count MPV Immature Gran % (Auto) Neut % (Auto) Discharge Diet: Low fat/ Low Cholesterol, 2000 mg Sodium Diet Discharge Activity: Return to Normal Activity Home Medications: Medications to take at Discharge Lisinopril [Zestril] 40 mg PO DAILY 11/08/18 Meloxicam [Mobic] 15 mg PO DAILY 11/08/18 Pantoprazole Sodium [Protonix] 20 mg PO DAILY 11/08/18 Pravastatin [Pravachol] 80 mg PO QHS 11/08/18 Hydrochlorothiazide [Hctz] 25 mg PO DAILY #30 tablet 11/09/18 Following Prescrptions Were Given to Patient: Hydrochlorothiazide [Hctz] 25 mg PO DAILY #30 tablet Primary Care Physician: Care Physician,No Primary [Primary Care Provider] - Please follow up with your Primary Care Physician in: 1-2 weeks Disposition: Home Minutes spent on discharge:: 35 Patient Condition:: Stable Medical Necessity - Tobacco Use Smoking Status: Former smoker Tobacco Use: Non-smoker Meaningful Use Info Meaningful Use Diagnoses (Choose all that apply): None applicable <Evans Santoro - Last Filed: 11/09/18 13:37> Discharge Date and Diagnosis - Secondary Discharge Diagnosis Chronic Problems HTN (hypertension) (Chronic) Hospital Course and Treatment Imaging Results: 11/09/18 05:55 Nuclear Stress Test - Treadmil [NM] AM (NON MEDS) Summary of Care Provided: This patient was seen in conjunction with Torin Curry PA-C . I have independently interviewed and examined the patient and reviewed pertinent historical, laboratory, and other data. Please refer to Torin Curry PA-C note for details of this patient's presentation, findings, and recommendations. I have reviewed Torin Curry PA-C note and concur with documented findings. In brief, patient 58-year-old Palauan-speaking gentleman with history of hypertension who presented with chest pain. Patient was placed on on a monitored bed [place] was ruled out with serial cardiac enzymes. Patient subsequently underwent a nuclear stress test which is negative for stress-induced ischemia. - Physical Exam Vital Signs Temp Pulse Resp BP Pulse Ox 98.5 F 90 18 132/81 H 98 11/09/18 12:14 11/09/18 12:14 11/09/18 12:14 11/09/18 12:14 11/09/18 12:14 Oxygen Delivery Method Room Air Weight: 70.76 kg Body Mass Index (BMI) 23.7 Intake and Output for Last 24 Hours Intake Total 120 / 120 850 / 850 Balance 120 / 120 850 / 850 Laboratory Tests Past 24 Hrs WBC RBC Hgb Hct MCV MCH MCHC RDW RDW Differential Plt Count MPV Immature Gran % (Auto) Neut % (Auto) Code Visit OBSV E AND M: [id number] Observation care discharge 11/09/18 1309 <Electronically signed by Torin COLLINS> Date Torin COLLINS 11/09/18 1338<Electronically signed by Evans Santoro MD> Cosigner Signature (if applicable): Date Evans Santoro MD CC: No Primary Care Physician; KARINA Curry; Evans Santoro MD Signed DISCHARGE INSTRUCTION Observed: 11/09/2018 Status: F Source: [place] 10:22 AM [facility] [place] Medical Records Department [address] [place] [address] Instructions for Home/Discharge Instructions 11/09/18 1021 MR#: [id number] Acct: [id number] Name: ANH RAMIREZ Rep #: [id number] : 1960 58 From: Torin COLLINS PCP: Care Physician, No Primary Status: ADM NEIDA - Discharge Diagnoses Current Active Problems: Current Active and Chronic Problems Chest pain (Acute) HTN (hypertension) (Chronic) You will use the following diet at home:: Cardiac Your food should be the consistency of: Regular Your liquids should be the consistency of: Regular/Thin Discharge Activity: Return to Normal Activity Allergies/Adverse Reactions: Allergies No Known Allergies Allergy (Verified 11/08/18 15:12) Medications to take at Discharge Lisinopril [Zestril] 40 mg PO DAILY 11/08/18 Meloxicam [Mobic] 15 mg PO DAILY 11/08/18 Pantoprazole Sodium [Protonix] 20 mg PO DAILY 11/08/18 Pravastatin [Pravachol] 80 mg PO QHS 11/08/18 Hydrochlorothiazide [Hctz] 25 mg PO DAILY #30 tablet 11/09/18 The following prescriptions were given: Hydrochlorothiazide [Hctz] 25 mg PO DAILY #30 tablet Primary Care Physician: Care Physician,No Primary [Primary Care Provider] - Please follow up with your Primary Care Physician in: 1-2 weeks Test Results: Test results from this visit will be discussed in further detail at your follow-up appointment, if applicable. Proposed Discharge Date: 11/09/18 11/09/18 1022 <Electronically signed by Torin COLLINS> Date Torin COLLINS CC: No Primary Care Physician STRESS REPORT Observed: 11/09/2018 Status: F Source: [place] 9:38 AM [facility] [place] Cardiovascular Services [address] [place] [address] MR#: [id number] Acct: [id number] Name: ANH RAMIREZ Rep #: [id number] : 1960 58 From: Braxton Soliman MD Primary Care: Care Physician, No Primary Status: ADM NEIDA Ordering Dr: Sex: M H Stress Test Report Exercise myocardial perfusion stress test. 58-year-old man with a history of chest pain. Medications, hydrochlorothiazide, lisinopril, Protonix. Stress protocol: Resting EKG demonstrates normal sinus rhythm with a rate of 66 bpm normal intervals are noted resting blood pressure 138/80 mmHg. The patient exercised according to regular Chavez protocol for total duration of 10 minutes completing 1 minute into stage IV of the Chavez protocol the maximum heart rate attained was 160 bpm which was 98% of maximum predicted heart rate the maximum workload was 11.7 metabolic equivalents. At rest there were no ST or T wave changes noted suggest ischemia peak exercise upsloping ST changes were noted with normally the criteria for ischemia. The resting blood pressure is 138/90 with a peak blood pressure 168/90 mmHg. No clinical angina was noted. Myocardial perfusion protocol. 11.6 mCi of technetium 99m sestamibi was injected at rest. The patient exercised to consider regular Chavez protocol for 10 minutes and at peak exercise 33.7 mCi of technetium 99m sestamibi was injected stress images were obtained stress and rest images were reconstructed and compared in the short axis vertical long horizontal long axis. Gated images were also obtained per Perfusion SPECT analysis: Review of the stress images demonstrate normal uptake of tracer noted in all areas of the myocardium. The resting images similarly demonstrate normal uptake of tracer noted in all areas of myocardium. No areas of reversibility are noted suggest ischemia. Gated SPECT analysis: The gated ejection fraction is over 80%. Conclusion: Normal exercise myocardial perfusion stress test at a high workload. Preserved ejection fraction. 11/09/18 0938 <Electronically signed by Braxton Soliman MD> Date Braxton Soliman MD CC: No Primary Care Physician; Evans Santoro MD; Eulogio Pinedaky DO Date Dictated: 11/09/18931 Date Transcribed: 11/09/18931 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: CO Signed CBC W/DIFF, AUTOMATED Collected: 11/09/2018 Status: F Source: [place] 4:40 AM [facility] TYPE CODE TESTS RESULT OUT OF RANGE REFERENCE UNITS LAB L100.1000 4.4-11.0 K/mm3 Normal WBC 7.7 LAB L100.1200 4.6-6.2 M/mm3 Normal RBC 5.52 LAB L100.1300 13.0-16.5 g/dl Normal HGB 15.9 LAB L100.1400 40-54 % Normal HCT 45.8 LAB L100.1500 80-94 fL Normal MCV 83.0 LAB L100.1600 27.0-32.0 pg Normal MCH 28.8 LAB L100.1700 32-36 g/gl Normal MCHC 34.7 LAB L100.1810 11.6-14.6 % Normal RDW CV 13.0 LAB L100.1820 35.1-43.9 fl Normal RDW SD 39.5 LAB L100.1900 150-450 K/mm3 Normal PLT 220 LAB L100.2000 6.2-12.0 fl Normal MPV 9.5 LAB L100.2100 47-70 % Normal NEUT% 59.4 LAB L100.2200 19-41 % Normal LY% 30.6 LAB L100.2300 0-10 % Normal MONO% 8.5 LAB L100.2400 0-5 % Normal EO% 0.7 LAB L100.2500 0-1 % Normal BASO% 0.7 LAB L100.2550 0.0-0.9 % Normal IM GRAN % 0.100 Result Comment: IG% - Immature Granulocytes (promyelocytes, myelocytes and metamyelocytes) > 1% indicates that a LEFT SHIFT is Present. LAB L100.2620 2.0-7.7 X10 3/uL Normal Absolute Neut 4.6 LAB L100.2720 0.83-4.51 X10 3/ul Normal Absolute Lymph 2.35 Performed By: #### L100.0100 #### [facility] [place], [address] PROTHROMBIN TIME W/INR Collected: 11/09/2018 Status: F Source: [place] 4:40 AM [facility] [place] TYPE CODE TESTS RESULT OUT OF RANGE REFERENCE UNITS LAB L300.4150 11.7-14.9 SECONDS Normal PROTIME 13.4 LAB L300.4200 Normal INR 1.0 Performed By: #### L300.3900, L300.4310 #### [facility] [address] [place], [place], [address] PARTIAL THROMBOPLAST Collected: 11/09/2018 Status: F Source: [place] TIME 4:40 AM [facility] [place] TYPE CODE TESTS RESULT OUT OF RANGE REFERENCE UNITS LAB L300.4310 24.1-36.2 Seconds Normal PTT 30.4 Performed By: #### L300.3900, L300.4310 #### [facility] [address] [place], [address] BASIC METABOLIC Collected: 11/09/2018 Status: F Source: [place] PROFILE (BMP) 4:40 AM [facility] [place] TYPE CODE TESTS RESULT OUT OF RANGE REFERENCE UNITS LAB L501.0100 74-106 mg/dL Normal GLU 95 Result Comment: Please note revised GLUCOSE reference range effective 2017. LAB L501.1000 7-18 mg/dL Normal BUN 13 LAB L501.1100 0.70-1.30 mg/dL Normal CREAT,SERUM 0.92 Result Comment: The validity of the calculated GFR AND GFRAA in patients over 70 years has not been determined. Clinical correlation is essential. LAB L501.1110 >60 mL/min Normal EST GFR 90 Result Comment: Non- GFR Calc LAB L501.1115 >60 mL/min Normal EST GFR - AA 109 Result Comment: GFR Calc LAB L501.1255 ml/min Normal Estimated CRCL 84.67 LAB L501.1300 10-20 RATIO Normal BUN/CRE 14.2 LAB L501.2200 8.5-10 mg/dL Normal .1 CA 8.6 LAB L501.5300 136-14 mmol/L Normal 5 NA 139 LAB L501.5600 3.5-5. mmol/L Normal 1 K 4.0 LAB L501.5900 98-107 mmol/L Normal CL 103 LAB L501.6100 21.0-3 mmol/L Normal 2.0 CO2 27.0 LAB L501.6200 5-15 Normal GAP 9 Performed By: #### L500.2500 #### [facility] [address] [place], [address] TROPONIN-I Collected: 11/09/2018 Status: F Source: [place] 4:40 AM [facility] [place] Order Comment: 'TROP' Serial specimen #1, #2 or #3: 3 TYPE CODE TESTS RESULT OUT OF RANGE REFERENCE UNITS LAB L501.4010 <0.045 ng/mL Normal < 0.015 TROPONIN-I Result Comment: TROPONIN-I EXPECTED VALUES <0.045 Negative 0.045 - 0.590 Consistent with Cardiac Damage > OR = 0.600 Critical Value Not every elevated troponin is indicative of FL. These values should be used with clinical judgement in examining the patient's clinical picture for diagnosis. To establish a diagnosis of FL versus myocardial injury, there must be a demonstrated rise and/or fall in the troponin values, in addition to ischemic symptoms, EKG changes, new regional wall motion abnormality, and/or angiographical evidence. PLEASE NOTE: REFERENCE RANGES EDITED 18 Performed By: #### L501.4010 #### [facility] [address] [place], [address] EMERGENCY DEPARTMENT Observed: 11/09/2018 Status: F Source: [place] SUMMARY 12:19 AM [facility] [place] [facility] Medical Records Department [address] [place] [address] Emergency Department Summary 11/08/18 1537 MR#: [id number] Acct: [id number] Name: ANH RAMIREZ Rep #: [id number] : 1960 58 From: Servando De Paz MD PCP: Care Physician, No Primary Status: ADM NE[place] - ER Visit Summary Date of Service: 11/08/18 Chief Complaint: Chest pain hypertension History of Present Illness: The patient is a 58 M presenting for evaluation secondary to chest pain and hypertension. Patient has an underlying history of hyperlipidemia and hypertension. Patient currently has been having blood pressures this week as high as 170s. Patient states that his blood pressure spikes are associated with chest pain. He reports that he has had continuous chest pain over the course of the last 5 hours. He states that when he gets the pain is associated with dyspnea diaphoresis and some lightheadedness. There is no exertional component associated with this. Patient denies any cardiovascular history, he is never had a stress test. Physical Examination: Vital signs are within normal limits, patient is afebrile. General: Patient is well-nourished well-developed and in no acute distress. Head: Normocephalic, atraumatic Eyes: Pupils equal round and reactive bilaterally, extra occular motion intact bialterally ENT: Moist mucous membranes Neck: Supple, no lymphadenopathy, no JVD, no meningismus CVS: Heart regular rate and rhythm, no murmurs, rubs or gallops, radial pulses 2+ bilaterally Resp: Respirations nondistressed, lung sounds clear bilaterally Abdomen: Soft, nontender, nondistended, no palpable masses, normal bowel sounds Back: Nontender Extremities: Nontender, atraumatic, active full range of motion, no peripheral edema Skin: warm, no rashes, no petechia Neuro: Alert and oriented x 4, CN 2-12 intact, no lateralizing neurological defecits Psyc: Normal affect Test Results: EKG demonstrates sinus rate [address] segments, normal T waves, no evidence of acute ischemia or arrhythmia. CBC chemistry and troponin are negative. Chest x-ray negative. Emergency Department Course and Treatment: Patient presented secondary to chest pain. History sounded somewhat concerning, so workup was obtained which was found to be negative as noted above. Patient's heart score is 4, I believe he requires admission. I will discussed this with the hospitalist. Disposition: Admission Impression: 1. Chest pain This note was generated with Solex[employer] dictation software. It may contain incorrect words, spelling, and punctuation that were not noted in review of the chart prior to signing ED Disposition - Plan for ED Patient: Chief Complaint: Hypertension What to do if you have Problems For any increased pain, shortness of breath, bleeding, nausea or vomiting, chest pain, or any unexpected problems, contact your Primary Care Provider. Call [facility] ([phone]) or report to the closest Emergency Room. Call 911 if necessary. 11/09/18 0019 <Electronically signed by Servando De Paz MD> Date Servando Canales Signature (If Indicated): Date CC: No Primary Care Physician HISTORY AND PHYSICAL Observed: 11/08/2018 Status: F Source: [place] EXAM 9:38 PM [facility] [place] [facility] Medical Records Department [address] [place] [address] History and Physical 11/08/18 1742 MR#: [id number] Acct: [id number] Name: ANH RAMIREZ Rep #: [id number] : 1960 58 From: Torin COLLINS PCP: Care Physician, No Primary Status: ADM NEIDA Y Location: [place] [address] ADDENDUM by Eulogio Fine DO on 11/08/18 at 2137 Code Visit Was seen and examined independently of Torin Curry. Patient came to the emergency room at [facility] today with complaints of precordial chest pain which he describes as dull in nature, it started today while he was at work doing heavy lifting. Patient told the emergency room physician today that the chest pain had been continuous over the past 5 hours prior to being seen in the emergency room. Patient does not speak any Greek, his son is in the room as an ui designer. Evaluation in the emergency room included an EKG which showed a normal sinus rhythm at 72, CBC, chemistry, and troponins were all negative. Patient's chest x-ray was negative for pathology. Physical exam: On examination he appeared in good health and spirits. Vital signs as documented. Skin warm and dry and without overt rashes. Neck without JVD. Lungs clear. Heart exam notable for regular rhythm, normal sounds and absence of murmurs, rubs or gallops. Abdomen unremarkable and without evidence of organomegaly, masses, or abdominal aortic enlargement. Extremities nonedematous. Neuro: Cranial nerves II through XII are grossly intact, no focal motor deficits were noted. Psych: Patient is alert and oriented x3, he is appropriate, he does not appear anxious or depressed. According to the emergency room documentation, patient's chest pain resolved during his stay in the emergency room, his blood pressure at times in the ER was noted to be elevated but at the time of my examination, the patient's systolic blood pressure reading was 151. Patient states that he has had a stress test in the past but it has been many years ago and this stress test was negative. Patient will be placed and observation status on PCU, serial cardiac enzymes will be obtained, if these remain negative, patient will undergo an exercise nuclear stress test tomorrow. I do not feel the patient needs an echocardiogram at this point, his blood pressure will be monitored, it may be necessary to add on extra blood pressure medications if it is not under control. I have reviewed Torin Curry's history and physical including his medical plan of care and medical assessment and endorse it. OBSV E AND M: [id number] Initial observation care L3 11/08/182137 <Electronically signed by Eulogio Fine DO> Date Eulogio Fine DO cc: No Primary Care Physician; KARINA Curry; Eulogio Fine DO * Signed Problem List (1) Chest pain Status: Acute (2) HTN (hypertension) Status: Chronic History of Present Illness Date of Admission: 11/08/18 Chief Complaint: chest pain The patient is a 58 year old M with a pmhx of htn who presents to the ER with c/o chest pain. He describes this as a midsternal ache that feels like he was punched in the chest with radiation straight through to the back, none to the arms or neck, and with associated SOB. It occurred while he was lifting something at work. He currently does not have any chest pain. He has had this for about 1 week. He has no hx of coronary disease. He had a stress test >10 years ago which was negative. He does not speak wolof, his son is present and translating. He denies family hx of heart disease. He did smoke but quit more than 25 years ago. [] Past Medical History Past Medical History (Chronic Problems): Chronic Problems HTN (hypertension) (Chronic) Allergies No Known Allergies Allergy (Verified 11/08/18 15:12) Home Medications: Ambulatory Orders Medication Instructions Recorded Hydrochlorothiazide [Hctz] 25 mg PO DAILY 11/08/18 Surgical History: no surgical history Psychiatric History: No pertinent psych hx Lives: With Family Smoking Status: Former smoker Tobacco Use: Non-smoker Alcohol: None Drugs: None - *Family History Maternal History Items: No pertinent history Paternal History Items: No pertinent history Review of Systems Constitutional: Denies: Chills, Fever, Weight Change HEENT: Denies: Head Aches, Sinus Congestion, Sinus Drainage Cardiovascular: Reports: Chest Pain. Denies: Edema, Heaviness, Light Headedness, Palpitations Respiratory: Reports: Shortness of Breath. Denies: Cough, Shortness of breath at rest, Sputum production Gastrointestinal: Denies: Abdominal Pain, Nausea, Vomiting Genitourinary: Denies: Dysuria Musculoskeletal: Denies: Joint Pain, Joint Tenderness Skin: Denies: Rash, Wounds Neurological: Denies: Numbness, Tingling, Focal weakness Psychiatric: Denies: Anxiety, Depression, Homicidal Ideations, Suicidal Ideations Hematologic/ Lymphatic: Denies: Easy Bruising, Easy Bleeding VTE Information - Inpt Only VTE Present on Admission: No VTE Mechan Device Prophylaxis: None VTE Pharm Prophylaxis ordered?: Yes Patient Problems: Active and Suspected Problems Chest pain (Acute) - Physical Exam General: Alert, Oriented x3, Cooperative HEENT: Atraumatic, PERRLA, EOMI, Normocephalic Neck: Supple, No JVD, Negative Carotid Bruits Lungs: Clear to auscultation, Normal air movement Cardiovascular: Regular rate, No murmurs Abdomen: Bowel Sounds Present, Soft, Non Tender Extremities: No edema, Capillary Refill Less than 3 Seconds Skin: No rashes, No breakdown Musculoskeletal: No Tenderness to Palpation of Joints or Extremities Neurological: Cranial nerves II-XII grossly intact Psych/Mental Status: Normal Affect, Appropriate Vital Signs Temp Pulse Resp BP Pulse Ox 98.1 F 73 19 H 151/89 H 94 11/08/18 15:13 11/08/18 17:06 11/08/18 17:06 11/08/18 17:06 11/08/18 17:06 Oxygen Delivery Method Room Air Weight: 157 lb Body Mass Index (BMI) 23.8 Laboratory Tests Past 24 Hrs WBC 8.5 RBC 5.35 Hgb 15.4 Hct 44.7 MCV 83.6 MCH 28.8 MCHC 34.5 RDW 12.9 RDW Differential 39.2 Assessment/Plan All Active Problems Chest pain (Acute) 1. Chest pain - trop neg, cxr with atelectasis, EKG neg. Admit to pcu, cycle enzymes, repeat EKG in AM, treadmill stress test in AM. Last stress was >10 years ago, negative at that time. 2. HTN - trend, continue home meds, mildly elevated in ER. 3. Former smoker DVT ppx: lovenox This patient was seen by Torin Curry PA-C under the supervision of Doctor Babatunde. 11/08/180 <Electronically signed by Torin COLLINS> Date Torin COLLINS 11/08/182132<Electronically signed by Eulogio Fine DO> Cosigner Signature: Date (if applicable) Eulogio Fine DO CC: No Primary Care Physician; KARINA Curry; Eulogio Fine DO Signed TROPONIN-I Collected: 11/08/2018 Status: F Source: [place] 6:50 PM [facility] [place] Order Comment: 'TROP' Serial specimen #1, #2 or #3: 2 TYPE CODE TESTS RESULT OUT OF RANGE REFERENCE UNITS LAB L501.4010 <0.045 ng/mL Normal < 0.015 TROPONIN-I Result Comment: TROPONIN-I EXPECTED VALUES <0.045 Negative 0.045 - 0.590 Consistent with Cardiac Damage > OR = 0.600 Critical Value Not every elevated troponin is indicative of FL. These values should be used with clinical judgement in examining the patient's clinical picture for diagnosis. To establish a diagnosis of FL versus myocardial injury, there must be a demonstrated rise and/or fall in the troponin values, in addition to ischemic symptoms, EKG changes, new regional wall motion abnormality, and/or angiographical evidence. PLEASE NOTE: REFERENCE RANGES EDITED 18 Performed By: #### L501.4010 #### [facility] [address] [place], [address] CHEST PA AND LATERAL Observed: 11/08/2018 Status: F Source: [place] 3:36 PM [facility] [place] [facility] Imaging Services [address] [place] [address] Chest PA and Lateral MR#: [id number] Acct: [id number] Name: ANH RAMIREZ Rep #: [id number] : 1960 M 58 From: Matteo Jasso MD PCP: Status: PRE ER Study: Chest PA and Lateral Date of Exam: 11/08/18 Exam# [id number] Ordering Dr: Servando De Paz MD STUDY: X-RAY CHEST REASON FOR EXAM: Male, 58 years old. Hypertension. Chest pain. TECHNIQUE: PA and lateral views of the chest. COMPARISON: None. FINDINGS: EKG electrodes are seen. Increased linear markings with areas of confluence in the lower lobes slightly more prominent on the left side in keeping with bibasilar atelectasis. There is no demonstrated pleural abnormality. Normal size heart. Normal mediastinum and brandon. Normal visualized pulmonary arteries. There is atherosclerotic tortuosity of the aortic arch and descending thoracic aorta. Normal visualized thoracic spine. Normal visualized ribs, clavicles, and shoulders. There is no demonstrated abnormality of the visualized soft tissue structures of the upper abdomen. RAD/Chest PA and Lateral IMPRESSION: Increased markings at the lung bases likely worse on the left side suggestive of bibasilar atelectasis. Electronically Signed: Matteo Jasso MD at 15:55 EST Tel [phone], Service support , CC: Servando De Paz 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: Signed CBC W/DIFF, AUTOMATED Collected: 11/08/2018 Status: F Source: [place] 3:30 PM [facility] [place] TYPE CODE TESTS RESULT OUT OF RANGE REFERENCE UNITS LAB L100.1000 4.4-11.0 K/mm3 Normal WBC 8.5 LAB L100.1200 4.6-6.2 M/mm3 Normal RBC 5.35 LAB L100.1300 13.0-16.5 g/dl Normal HGB 15.4 LAB L100.1400 40-54 % Normal HCT 44.7 LAB L100.1500 80-94 fL Normal MCV 83.6 LAB L100.1600 27.0-32.0 pg Normal MCH 28.8 LAB L100.1700 32-36 g/gl Normal MCHC 34.5 LAB L100.1810 11.6-14.6 % Normal RDW CV 12.9 LAB L100.1820 35.1-43.9 fl Normal RDW SD 39.2 LAB L100.1900 150-450 K/mm3 Normal PLT 233 LAB L100.2000 6.2-12.0 fl Normal MPV 9.6 LAB L100.2100 47-70 % Normal NEUT% 63.2 LAB L100.2200 19-41 % Normal LY% 25.1 LAB L100.2300 0-10 % High MONO% 10.5 LAB L100.2400 0-5 % Normal EO% 0.5 LAB L100.2500 0-1 % Normal BASO% 0.6 LAB L100.2550 0.0-0.9 % Normal IM GRAN % 0.100 Result Comment: IG% - Immature Granulocytes (promyelocytes, myelocytes and metamyelocytes) > 1% indicates that a LEFT SHIFT is Present. LAB L100.2620 2.0-7.7 X10 3/uL Normal Absolute Neut 5.4 LAB L100.2720 0.83-4.51 X10 3/ul Normal Absolute Lymph 2.13 Performed By: #### L100.0100 #### [facility] [place], [address] BASIC METABOLIC Collected: 11/08/2018 Status: F Source: [place] PROFILE (BMP) 3:30 PM [facility] [place] TYPE CODE TESTS RESULT OUT OF RANGE REFERENCE UNITS LAB L501.0100 74-106 mg/dL High GLU 108 Result Comment: Fasting Glucose result from 100 to 125 mg/dL suggests IMPAIRED HOMEOSTASIS per A.D.A. criteria. Please note revised GLUCOSE reference range effective 2017. LAB L501.1000 7-18 mg/dL Normal BUN 15 LAB L501.1100 0.70-1.30 mg/dL Normal CREAT,SERUM 1.09 Result Comment: The validity of the calculated GFR AND GFRAA in patients over 70 years has not been determined. Clinical correlation is essential. LAB L501.1110 >60 mL/min Normal EST GFR 74 Result Comment: Non- GFR Calc LAB L501.1115 >60 mL/min Normal EST GFR - AA 89 Result Comment: GFR Calc LAB L501.1255 ml/min Normal Estimated CRCL 71.47 LAB L501.1300 10-20 RATIO Normal BUN/CRE 13.8 LAB L501.2200 8.5-10 mg/dL Low .1 CA 8.2 LAB L501.5300 136-14 mmol/L Normal 5 NA 139 LAB L501.5600 3.5-5. mmol/L Normal 1 K 3.5 LAB L501.5900 98-107 mmol/L Normal CL 101 LAB L501.6100 21.0-3 mmol/L Normal 2.0 CO2 29.0 LAB L501.6200 5-15 Normal GAP 9 Performed By: #### L500.2500, L501.4010 #### [facility] [place], [address] TROPONIN-I Collected: 11/08/2018 Status: F Source: [place] 3:30 PM [facility] [place] TYPE CODE TESTS RESULT OUT OF RANGE REFERENCE UNITS LAB L501.4010 <0.045 ng/mL Normal < 0.015 TROPONIN-I Result Comment: TROPONIN-I EXPECTED VALUES <0.045 Negative 0.045 - 0.590 Consistent with Cardiac Damage > OR = 0.600 Critical Value Not every elevated troponin is indicative of FL. These values should be used with clinical judgement in examining the patient's clinical picture for diagnosis. To establish a diagnosis of FL versus myocardial injury, there must be a demonstrated rise and/or fall in the troponin values, in addition to ischemic symptoms, EKG changes, new regional wall motion abnormality, and/or angiographical evidence. PLEASE NOTE: REFERENCE RANGES EDITED 18 Performed By: #### L500.2500, L501.4010 #### [facility] [address] [place], [address] PROGRESS Observed: 11/08/2018 Status: COMPLETED Source: [place] 2:50 PM [facility] REPOSITORY HNO ID: [id number] Author: Gina (Hot Die Press Feeder) Older Service: (none) Author Type: Nurse Practitioner Type: Progress Notes Filed: 11/08/2018 3:10 PM Note Text: CC BP follow-up HPI Ahn Flower is a 58 year old male who presents to the office for blood pressure. His visit today is for follow-up. Patient was last seen for this approximately 1 month ago. Patient was not taking HCTZ 25 mg daily. Home BP's: does check BP's away from this office with average BP's in the 130's to 170's over 90's to 100 range. BP is high right now. Reports dizziness, chest pain through to his back, nausea, flushed. He has had chest pain in the past with elevated BP but this is the worst he has ever felt. Last 4 Encounter BP Readings: Date: BP: 11/08/2018 160/100. Repeat BP 154/86 10/08/2018 130/80 09/21/2018 158/96 07/21/2018 136/82 REVIEW OF SYSTEMS See HPI PAST MEDICAL HISTORY Diagnosis Date - Diverticulosis 12/05/2014 - Essential hypertension - Hemorrhoids 2014 - Hyperlipidemia PAST SURGICAL HISTORY Procedure Laterality Date - COLONOSCOPY 2013 indirect references. Diverticulosis mentioned. - HEMORRHOIDAL 2014 ALLERGIES Patient has no known allergies. MEDICATIONS ACETAMINOPHEN (TYLENOL ORAL) Take 1,000 mg by mouth twice daily. hydroCHLOROthiazide (HYDRODIURIL, ESIDRIX) 25 mg tablet Take 1 tablet by mouth once daily. lisinopril (ZESTRIL, PRINIVIL) 40 mg tablet Take 1 tablet by mouth once daily. meloxicam (MOBIC) 15 mg tablet Take 1 tablet by mouth once daily. pantoprazole DR (PROTONIX) 20 mg tablet Take 1 tablet by mouth daily before breakfast. Take on empty stomach, 1/2 hr before meal. pravastatin (PRAVACHOL) 80 mg tablet Take 1 tablet by mouth daily at bedtime. terbinafine HCl (LAMISIL) 250 mg tablet Take 1 tablet by mouth once daily. FAMILY HISTORY Problem Relation Age of Onset - Diabetes Mother - Hypertension Father - Cancer Father - Cancer Sister GI Social History Substance Use Topics - Smoking status: Never Smoker - Smokeless tobacco: Never Used - Alcohol use No PHYSICAL EXAM BP 160/100 Pulse 75 Temp 37.1 ?C (98.7 ?F) (Temporal Artery) Resp 14 Wt 71.4 kg (157 lb 6.4 oz) SpO2 96% BMI 26.19 kg/m? General Appearance: in no acute distress, alert, appears fatigued Skin: face flushed Lungs: lungs clear to auscultation. No wheezing, rhonchi, rales Heart: RRR without murmur, gallop, or rubs. No ectopy ASSESSMENT/PLAN: 1. Chest pain, unspecified type - ICD9: 786.50, ICD10: R07.9 Symptoms concerning for FL. Explained to patient and son he needs emergency work-up and should be seen in the ER. There is somewhat of a language barrier but seemed to understand the emergent nature of his symptoms. Son will drive him to [facility] ER. Patient is stable for transport by car across the street. Given snapshot and office visit notes from today. Report called to [facility] ER. Prescription instructions reviewed with patient as applicable. Potential red flag symptoms discussed with the patient. Reviewed appropriate action plan to take if red flag symptoms occur. Patient agreeable to treatment plan Gina Vaughn APRN.[facility] CNOV Observed: 11/08/2018 Status: COMPLETED Source: [place] 2:40 PM [facility] REPOSITORY Office Visit ([facility]) ANH WALLIS ([id number]) 1960 M COMFORT Date Time Provider Department 11/08/18 2:40 PM GINA VAUGHN ([facility]AVO) [facility] During your visit today, we recorded the following information about you: Temperature Pulse Respiration Blood pressure 98.7 degrees 75/minute 14/minute 154/86 Weight 71.4 kg Gina Vaughn, [employer] 11/08/2018 3:10 PM Signed CC BP follow-up HPI Anh Flower is a 58 year old male who presents to the office for blood pressure. His visit today is for follow-up. Patient was last seen for this approximately 1 month ago. Patient was not taking HCTZ 25 mg daily. Home BP's: does check BP's away from this office with average BP's in the 130's to 170's over 90's to 100 range. BP is high right now. Reports dizziness, chest pain through to his back, nausea, flushed. He has had chest pain in the past with elevated BP but this is the worst he has ever felt. Last 4 Encounter BP Readings: Date: BP: 11/08/2018 160/100. Repeat BP 154/86 10/08/2018 130/80 09/21/2018 158/96 07/21/2018 136/82 REVIEW OF SYSTEMS See HPI PAST MEDICAL HISTORY Diagnosis Date - Diverticulosis 12/05/2014 - Essential hypertension - Hemorrhoids 2015 - Hyperlipidemia PAST SURGICAL HISTORY Procedure Laterality Date - COLONOSCOPY 2013 indirect references. Diverticulosis mentioned. - HEMORRHOIDAL 2014 ALLERGIES Patient has no known allergies. MEDICATIONS ACETAMINOPHEN (TYLENOL ORAL) Take 1,000 mg by mouth twice daily. hydroCHLOROthiazide (HYDRODIURIL, ESIDRIX) 25 mg tablet Take 1 tablet by mouth once daily. lisinopril (ZESTRIL, PRINIVIL) 40 mg tablet Take 1 tablet by mouth once daily. meloxicam (MOBIC) 15 mg tablet Take 1 tablet by mouth once daily. pantoprazole DR (PROTONIX) 20 mg tablet Take 1 tablet by mouth daily before breakfast. Take on empty stomach, 1/2 hr before meal. pravastatin (PRAVACHOL) 80 mg tablet Take 1 tablet by mouth daily at bedtime. terbinafine HCl (LAMISIL) 250 mg tablet Take 1 tablet by mouth once daily. FAMILY HISTORY Problem Relation Age of Onset - Diabetes Mother - Hypertension Father - Cancer Father - Cancer Sister GI Social History Substance Use Topics - Smoking status: Never Smoker - Smokeless tobacco: Never Used - Alcohol use No PHYSICAL EXAM BP 160/100 Pulse 75 Temp 37.1 ?C (98.7 ?F) (Temporal Artery) Resp 14 Wt 71.4 kg (157 lb 6.4 oz) SpO2 96% BMI 26.19 kg/m? General Appearance: in no acute distress, alert, appears fatigued Skin: face flushed Lungs: lungs clear to auscultation. No wheezing, rhonchi, rales Heart: RRR without murmur, gallop, or rubs. No ectopy ASSESSMENT/PLAN: 1. Chest pain, unspecified type - ICD9: 786.50, ICD10: R07.9 Symptoms concerning for [place]. Explained to patient and son he needs emergency work-up and should be seen in the ER. There is somewhat of a language barrier but seemed to understand the emergent nature of his symptoms. Son will drive him to [facility] ER. Patient is stable for transport by car across the street. Given snapshot and office visit notes from today. Report called to [facility] ER. Prescription instructions reviewed with patient as applicable. Potential red flag symptoms discussed with the patient. Reviewed appropriate action plan to take if red flag symptoms occur. Patient agreeable to treatment plan Gina Vaughn APRN.FURNITURE ARRANGER Referring Provider: BRUNO GILES [[id number]] Allergies As of Date: 11/08/2018 (No Known Allergies) Date Reviewed: 11/08/2018 Reviewed by: Yasmeen Mas Main Galley Scullion - Fully Assessed Primary Visit Diagnosis:Chest pain, unspecified type [R07.9] Prescriptions as of 11/08/2018 Sig: TYLENOL ORAL Take 1,000 mg by mouth twice * HYDROCHLOROTHIAZIDE 25 MG TAB* Take 1 tablet by mouth once d* LISINOPRIL 40 MG TABLET Take 1 tablet by mouth once d* MELOXICAM 15 MG TABLET Take 1 tablet by mouth once d* PANTOPRAZOLE 20 MG TABLET,DEL* Take 1 tablet by mouth daily * PRAVASTATIN 80 MG TABLET Take 1 tablet by mouth daily * TERBINAFINE HCL 250 MG TABLET Take 1 tablet by mouth once d* Problem List As Of Date 11/08/2018 Noted Resolved Hematuria [R31.9] INVALID FOR* Right flank pain [R10.9] INVALID FOR*02/19/2018 Essential hypertension [I10] Other hyperlipidemia [E78.49] Left shoulder pain [M25.512] INVALID FOR* Encounter Status:Closed by GINA VAUGHN CNP on 11/08/18 EKG1 Observed: 10/08/2018 Status: F Source: [facility] 11:00 AM [facility] [place] REPOSITORY NAME : ANH WALLIS PID : [id number] : 1960 Gender : Male Race : ORD : Procedure Date : Oct 08 2018 11:00:49 Edit Date : Oct 18 2018 09:13:35 Diagnosis:WARNING: INTERPRETATION OF THIS ECG, ALTHOUGH ATTEMPTED, MAY BE ADVERSELY AFFECTED BY DATA QUALITY SINUS RHYTHM WITH OCCASIONAL AND CONSECUTIVE PREMATURE VENTRICULAR COMPLEXES ST & INFERIOR T WAVE ABNORMALITY ABNORMAL ECG Confirmed by SERVANDO ANTHONY D.O. ([id number]) on 10/18/2018 9:12:44 AM Ventricular Rate : 65 BPM Atrial Rate : 65 BPM P-R Interval : 122 ms QRS Duration : 88 ms Q-T Interval : 428 ms QTC Calculation(Bezet) : 445 ms P Midd[place] : 32 degrees R Midd[place] : -9 degrees T [place] : -22 degrees Test Reason : Location : 189 : [facility] Overread By : SERVANDO ANTHONY D.O. Edited By : SERVANDO ANTHONY D.O. Referred By : GINA VAUGHN Acquired by : LAMAR combs Observed: 10/08/2018 Status: COMPLETED Source: [place] 10:36 AM [facility] REPOSITORY O ID: [id number] Author: Gina (Chavo) Debora Service: (none) Author Type: Nurse Practitioner Type: Progress Notes Filed: 10/08/2018 1:38 PM Note Text: CC Patient presents with: blood pressure follow up GINO Kamara James Flower is a 58 year old male who presents to the office for blood pressure. Patient does not speak Greek. He is here today with his son to interpret who speaks broken Greek. BP at home has been running high, average around 160/100. When it gets that he he gets a pinching pain in his chest. Very difficult to illicit more information about chest pain. States pain has been present for 6 months. Aggravated by stretching and deep breathing but does not hurt when he lifts something heavy or exerts himself. Denies any associated symptoms including shortness of breath, heart palpitations, sweats, nausea, blurred vision, flushing, headaches, dizziness, lightheadedness, feeling faint or passing out. BP medications: Patient is ordered Lisinopril and HCTZ, recently increased due to elevated BP. Reports he has not been taking the HCTZ, thought he was supposed to stop taking it. Last 4 Encounter BP Readings: Date: BP: 10/08/2018 130/80 09/21/2018 158/96 07/21/2018 136/82 06/21/2018 138/89 REVIEW OF SYSTEMS General: no fevers, no chills, no night sweats, no change in energy and no significant changes in weight Respiratory: no cough, no wheezing, no hemoptysis Cardiovascular: no swelling PAST MEDICAL HISTORY Diagnosis Date - Diverticulosis 12/05/2014 - Essential hypertension - Hemorrhoids 2014 - Hyperlipidemia PAST SURGICAL HISTORY Procedure Laterality Date - COLONOSCOPY 2013 indirect references. Diverticulosis mentioned. - HEMORRHOIDAL 2014 ALLERGIES Patient has no known allergies. MEDICATIONS pravastatin (PRAVACHOL) 80 mg tablet Take 1 tablet by mouth daily at bedtime. lisinopril (ZESTRIL, PRINIVIL) 40 mg tablet Take 1 tablet by mouth once daily. pantoprazole DR (PROTONIX) 20 mg tablet Take 1 tablet by mouth daily before breakfast. Take on empty stomach, 1/2 hr before meal. terbinafine HCl (LAMISIL) 250 mg tablet Take 1 tablet by mouth once daily. meloxicam (MOBIC) 15 mg tablet Take 1 tablet by mouth once daily. hydroCHLOROthiazide (HYDRODIURIL, ESIDRIX) 25 mg tablet Take 1 tablet by mouth once daily. ACETAMINOPHEN (TYLENOL ORAL) Take 1,000 mg by mouth twice daily. FAMILY HISTORY Problem Relation Age of Onset - Diabetes Mother - Hypertension Father - Cancer Father - Cancer Sister GI Social History Substance Use Topics - Smoking status: Never Smoker - Smokeless tobacco: Never Used - Alcohol use No PHYSICAL EXAM BP 130/80 Pulse 64 Temp 36.1 ?C (97 ?F) (Temporal Artery) Resp 16 Wt 72.8 kg (160 lb 6.4 oz) SpO2 98% BMI 26.69 kg/m? General Appearance: well appearing, in no acute distress, alert Pysch: mood and affect flat and restricted Lungs: lungs clear to auscultation. No wheezing, rhonchi, rales Heart: RRR without murmur, gallop, or rubs. No ectopy Musculoskeletal: No tenderness with palpation of chest wall. Pain is not reproducible. Ext: no edema in LE bilaterally, good distal pulses ASSESSMENT/PLAN: 1. Atypical chest pain - ICD9: 786.59, ICD10: R07.89 (primary diagnosis) Atypical chest pain, symptoms are not consistent with cardiac ischemia due to nonexertional nature of symptom and localization of the pain possible etiology include GERD, elevated BP and musculoskeletal - ECG COMPLETE W INTERPRETATION normal sinus rhythm, no changes from previous EKG 6 months ago - Patient not taking BP medication correctly. Reinforced taking both medications as prescribed - Follow-up in one month to re-evaluate or sooner as needed 2. Essential hypertension - ICD9: 401.9, ICD10: I10 As above Prescription instructions reviewed with patient as applicable. Potential red flag symptoms discussed with the patient. Reviewed appropriate action plan to take if red flag symptoms occur. Patient agreeable to treatment plan Gina Vaughn APRN.CNP CNOV Observed: 10/08/2018 Status: COMPLETED Source: [place] 10:20 AM [facility] REPOSITORY Office Visit (INTMWS) ANH WALLIS ([id number]) 1960 M [facility] Date Time Provider Department 10/08/18 10:20 AM GINA VAUGHN (CHAVO) INTMWS During your visit today, we recorded the following information about you: Temperature Pulse Respiration Blood pressure 97 degrees 64/minute 16/minute 130/80 Weight 72.8 kg Gina Vaughn APRN.CNP 10/08/2018 1:38 PM Signed CC Patient presents with: blood pressure follow up HPI Anh Flower is a 58 year old male who presents to the office for blood pressure. Patient does not speak Greek. He is here today with his son to interpret who speaks broken Greek. BP at home has been running high, average around 160/100. When it gets that he he gets a pinching pain in his chest. Very difficult to illicit more information about chest pain. States pain has been present for 6 months. Aggravated by stretching and deep breathing but does not hurt when he lifts something heavy or exerts himself. Denies any associated symptoms including shortness of breath, heart palpitations, sweats, nausea, blurred vision, flushing, headaches, dizziness, lightheadedness, feeling faint or passing out. BP medications: Patient is ordered Lisinopril and HCTZ, recently increased due to elevated BP. Reports he has not been taking the HCTZ, thought he was supposed to stop taking it. Last 4 Encounter BP Readings: Date: BP: 10/08/2018 130/80 09/21/2018 158/96 07/21/2018 136/82 06/21/2018 138/89 REVIEW OF SYSTEMS General: no fevers, no chills, no night sweats, no change in energy and no significant changes in weight Respiratory: no cough, no wheezing, no hemoptysis Cardiovascular: no swelling PAST MEDICAL HISTORY Diagnosis Date - Diverticulosis 12/05/2014 - Essential hypertension - Hemorrhoids 2014 - Hyperlipidemia PAST SURGICAL HISTORY Procedure Laterality Date - COLONOSCOPY 2013 indirect references. Diverticulosis mentioned. - HEMORRHOIDAL 2014 ALLERGIES Patient has no known allergies. MEDICATIONS pravastatin (PRAVACHOL) 80 mg tablet Take 1 tablet by mouth daily at bedtime. lisinopril (ZESTRIL, PRINIVIL) 40 mg tablet Take 1 tablet by mouth once daily. pantoprazole DR (PROTONIX) 20 mg tablet Take 1 tablet by mouth daily before breakfast. Take on empty stomach, 1/2 hr before meal. terbinafine HCl (LAMISIL) 250 mg tablet Take 1 tablet by mouth once daily. meloxicam (MOBIC) 15 mg tablet Take 1 tablet by mouth once daily. hydroCHLOROthiazide (HYDRODIURIL, ESIDRIX) 25 mg tablet Take 1 tablet by mouth once daily. ACETAMINOPHEN (TYLENOL ORAL) Take 1,000 mg by mouth twice daily. FAMILY HISTORY Problem Relation Age of Onset - Diabetes Mother - Hypertension Father - Cancer Father - Cancer Sister GI Social History Substance Use Topics - Smoking status: Never Smoker - Smokeless tobacco: Never Used - Alcohol use No PHYSICAL EXAM BP 130/80 Pulse 64 Temp 36.1 ?C (97 ?F) (Temporal Artery) Resp 16 Wt 72.8 kg (160 lb 6.4 oz) SpO2 98% BMI 26.69 kg/m? General Appearance: well appearing, in no acute distress, alert Pysch: mood and affect flat and restricted Lungs: lungs clear to auscultation. No wheezing, rhonchi, rales Heart: RRR without murmur, gallop, or rubs. No ectopy Musculoskeletal: No tenderness with palpation of chest wall. Pain is not reproducible. Ext: no edema in LE bilaterally, good distal pulses ASSESSMENT/PLAN: 1. Atypical chest pain - ICD9: 786.59, ICD10: R07.89 (primary diagnosis) Atypical chest pain, symptoms are not consistent with cardiac ischemia due to nonexertional nature of symptom and localization of the pain possible etiology include GERD, elevated BP and musculoskeletal - ECG COMPLETE W INTERPRETATION normal sinus rhythm, no changes from previous EKG 6 months ago - Patient not taking BP medication correctly. Reinforced taking both medications as prescribed - Follow-up in one month to re-evaluate or sooner as needed 2. Essential hypertension - ICD9: 401.9, ICD10: I10 As above Prescription instructions reviewed with patient as applicable. Potential red flag symptoms discussed with the patient. Reviewed appropriate action plan to take if red flag symptoms occur. Patient agreeable to treatment plan KINGSLEY Hwang APRN.CNP 10/08/2018 11:05 AM Signed Take both the Lisinopril and the hydrochlorothiazide as prescribed Go to ER for chest pain radiating to jaw and/or left arm along with heart palpitations, shortness of breath, nausea and diaphoresis Referring Provider: BRUNO GILES [[id number]] Allergies As of Date: 10/08/2018 (No Known Allergies) Date Reviewed: 10/08/2018 Reviewed by: Yasmeen Friend Main Gal[place] Sc[place] - Fully Assessed Reason for Visit: blood pressure follow up [Other] Reason For Visit History Recorded Primary Visit Diagnosis:Atypical chest pain [R07.89] Other Visit Diagnosis:Essential hypertension [I10] Order(s):ECG COMPLETE W INTERPRETATION [ECG01] Order #: [id number] FUTURE Prescriptions as of 10/08/2018 Sig: PRAVASTATIN 80 MG TABLET Take 1 tablet by mouth daily * LISINOPRIL 40 MG TABLET Take 1 tablet by mouth once d* PANTOPRAZOLE 20 MG TABLET,DEL* Take 1 tablet by mouth daily * HYDROCHLOROTHIAZIDE 25 MG TAB* Take 1 tablet by mouth once d* TERBINAFINE HCL 250 MG TABLET Take 1 tablet by mouth once d* MELOXICAM 15 MG TABLET Take 1 tablet by mouth once d* TYLENOL ORAL Take 1,000 mg by mouth twice * Problem List As Of Date 10/08/2018 Noted Resolved Hematuria [R31.9] INVALID FOR* Right flank pain [R10.9] INVALID FOR*02/19/2018 Essential hypertension [I10] Other hyperlipidemia [E78.49] Left shoulder pain [M25.512] INVALID FOR* Other instructions from your clinician: Take both the Lisinopril and the hydrochlorothiazide as prescribed Go to ER for chest pain radiating to jaw and/or left arm along with heart palpitations, shortness of breath, nausea and diaphoresis Encounter Status:Closed by GINA VAUGHN CNP on 10/08/18 COMP METABOLIC PANEL Collected: 09/21/2018 Status: F Source: [facility] 3:25 PM [facility] TYPE CODE TESTS RESULT OUT OF REFERENCE UNITS RANGE LAB TP 6.3-8.0 g/dL Protein, Total 7.5 LAB ALB 3.9-4.9 g/dL Albumin 4.5 LAB CA 8.5-10.2 mg/dL Calcium, Total 9.4 LAB TBIL 0.2-1.3 mg/dL Bilirubin, Total 0.7 LAB ALKP 38-113 U/L Alkaline Phosphatase 75 LAB AST 14-40 U/L AST 22 LAB GLU 74-99 mg/dL Glucose 87 Result Comment: The [place] Diabetes Association (ADA) provides guidance for cutoff values for fasting glucose and random glucose. The ADA defines fasting as no caloric intake for at least 8 hours. Fas ting plasma glucose results between 100 to 125 mg/dL indicate increased risk for diabetes (prediabetes). Fasting plasma glucose results greater than or equal to 126 mg/dL meet the criteria for diagnosis of diabetes. In the absence of unequivocal hyperglycemia, results should be confirmed by repeat testing. In a patient with classic symptoms of hyperglycemia or hyperglycemic crisis, random plasma glucose results greater than or equal to 200 mg/dL meet the criteria for diagnosis of diabetes. Reference: Standards of Medical Care in Diabetes 2016, [place] Diabetes Association. Diabetes Care. 2016.39(Suppl 1). LAB BUN 9-24 mg/dL BUN 24 LAB CRET 0.73-1.22 mg/dL Creatinine 1.14 LAB NA 136-144 mmol/L Sodium 139 LAB K 3.7-5.1 mmol/L Potassium 4.3 LAB CL 97-105 mmol/L Chloride 99 LAB CO2 22-30 mmol/L CO2 25 LAB AGAP 9-18 mmol/L Anion Gap 15 LAB ALT 10-54 U/L ALT 21 LAB GFRAA eGFR- Amer. >60 LAB GFRNAA . eGFR-All Other Races >60 Result Comment: eGFR (Estimated GFR) Units of measure: mL/min/1.73 meters squared eGFR is derived from the reexpressed MDRD Study equation using the following parameters: serum creatinine, age, gender and race. The creatinine assay has been calibrated to be traceable to IDMS. An eGFR <60 mL/min/1.73m2 for >3 months is consistent with chronic kidney disease. Refer to KDOQI guidelines for clinical interpretation. In patients with unstable renal function, e.g. those with acute kidney injury, the eGFR may not accurately reflect actual GFR. Performed By: #### CMP, LIPNF #### [facility] [address], [place] [address] LIPID PANEL, NONFAST Collected: 09/21/2018 Status: F Source: [place] 3:25 PM [facility] [place] REPOSITORY TYPE CODE TESTS RESULT OUT OF REFERENCE UNITS RANGE LAB CHOLNF <200 mg/dL Total High Cholesterol NF 250 Result Comment: <200 mg/dL, Desirable 200-239 mg/dL, Borderline high >239 mg/dL, High LAB TRIGNF <150 mg/dL Triglycerides, NF High 281 Result Comment: <150 mg/dL, Normal 150-199 mg/dL, Borderline high 200-499 mg/dL, High >499 mg/dL, Very high LAB HDLNF >39 mg/dL HDL Cholesterol, NF Low 35 Result Comment: 40-59 mg/dL, Acceptable >59 mg/dL, High: Negative risk factor for coronary heart disease <40 mg/dL, Low: Positive risk factor for coronary heart disease LAB LDLNF <100 mg/dL LDL Cholesterol, High NF 159 Result Comment: <100 mg/dL, Optimal 100-129 mg/dL, Near optimal/above optimal 130-159 mg/dL, Borderline high 160-189 mg/dL, High >189 mg/dL, Very high Secondary prevention optimal LDL Cholesterol levels are recommended to be < 70 mg/dL LAB NOHDLN <130 mg/dL High Non HDL Chol, 215 NF Result Comment: <130 mg/dL, Optimal 130-159 mg/dL, Near optimal/above optimal 160-189 mg/dL, Borderline high 190-219 mg/dL, High >219 mg/dL, Very high Secondary prevention optimal non HDL Cholesterol levels are recommended to be < 100 mg/dL LAB VLDLNF <30 mg/dL VLDL Cholesterol, High NF 56 LAB TCHDLN <5.10 mg/dL T Chol/HDL Ratio High NF 7.14 LAB LDLHDN <2.54 mg/dL LDL/HDL Ratio, NF High 4.54 Result Comment: Reference: 1. National Cholesterol Education Program ATP III Guideline At-A-Glance Quick Desk Reference: National Heart, Lung, and Blood [place]. National Institutes of Health. 2001: NIH Publication No. 01-3305. 2. An International Atherosclerosis Society position paper: global recommendations for the management of dyslipidemia: executive summary, Atherosclerosis. 2014: 232(2):410-413. Performed By: #### CMP, LIPNF #### [facility] [address] [place] [id number] CNOV Observed: 09/21/2018 Status: COMPLETED Source: [place] 3:00 PM [facility] REPOSITORY Office Visit (INTMWS) ANH WALLIS ([id number]) 1960 M [facility] Date Time Provider Department 09/21/18 3:00 PM GINA VAUGHN (CHAVO) INTMWS During your visit today, we recorded the following information about you: Temperature Pulse Respiration Blood pressure 98.3 degrees 78/minute 16/minute 158/96 Weight 70.8 kg Gina Vaughn APRN.CNP 09/21/2018 3:57 PM Signed CC: Patient presents with: Follow Up HPI Anh Flower is a 58 year old male who presents today with his son who is interpreting for him for routine follow-up. HTN: BP elevated today. Does not check at home. Denies any symptoms referable to elevated blood pressure. Specifically denies headache, chest pain, palpitations, dyspnea and peripheral edema. Patient denies any side effects of his medication(s) and is compliant with their regimen. Last 3 Encounter BP Readings: Date: BP: 09/21/2018 158/96 07/21/2018 136/82 06/21/2018 138/89 Requesting treatment for fungal infection of right great toe. Present for 6 months, getting worse. Has tried various topical treatments. Denies pain, redness or swelling of toe. GERD: Taking Protonix daily which has been effective at controlling symptoms. Denies heartburn/reflux, abdominal pain, weight loss, difficulty swallowing, painful swallowing. REVIEW OF SYSTEMS See HPI PAST MEDICAL HISTORY Diagnosis Date - Diverticulosis 12/05/2014 - Essential hypertension - Hemorrhoids 2014 - Hyperlipidemia PAST SURGICAL HISTORY Procedure Laterality Date - COLONOSCOPY 2013 indirect references. Diverticulosis mentioned. - HEMORRHOIDAL 2014 ALLERGIES Patient has no known allergies. MEDICATIONS lisinopril (ZESTRIL, PRINIVIL) 40 mg tablet Take 1 tablet by mouth once daily. pravastatin (PRAVACHOL) 40 mg tablet Take 1 tablet by mouth daily at bedtime. Hydrochlorothiazide 12.5 mg capsule Take 1 capsule by mouth once daily. pantoprazole DR (PROTONIX) 20 mg tablet Take 1 tablet by mouth daily before breakfast. Take on empty stomach, 1/2 hr before meal. meloxicam (MOBIC) 15 mg tablet Take 1 tablet by mouth once daily. ACETAMINOPHEN (TYLENOL ORAL) Take 1,000 mg by mouth twice daily. FAMILY HISTORY Problem Relation Age of Onset - Diabetes Mother - Hypertension Father - Cancer Father - Cancer Sister GI Social History Substance Use Topics - Smoking status: Never Smoker - Smokeless tobacco: Never Used - Alcohol use No PHYSICAL EXAM BP 158/96 Pulse 78 Temp 36.8 ?C (98.3 ?F) (Temporal Artery) Resp 16 Wt 70.8 kg (156 lb) SpO2 98% BMI 25.96 kg/m? General Appearance: well appearing, in no acute distress, alert Neck: Thyroid normal size and symmetric without palpable nodules, No adenopathy Lungs: Lungs clear to auscultation. No wheezing, rhonchi, rales Heart: RRR without murmur, gallop, or rubs. No ectopy Ext: no edema in LE bilaterally, good distal pulses Left great toe: Nail is yellow, crumbly. No evidence of paronychia. BP CONTROLLED (<130/80) due on 1978 ANNUAL PCP TEAM CHRONIC DISEASE VISIT due on 06/21/2019 DIABETES SCREEN due on 02/22/2021 LIPID SCREEN due on 02/22/2023 COLORECTAL CANCER SCREENING,SEE MODIFIER due on 12/05/2024 DTAP,TDAP,TD(2 - Td) due on 09/19/2027 PROSTATE CANCER SCREENING DISCUSSION Completed INFLUENZA Completed HEPATITIS C SCREENING Completed ASSESSMENT/PLAN: 1. Fungal toenail infection - ICD9: 110.1, ICD10: B35.1 (primary diagnosis) Start Lamisil oral. Check baseline CMP first 2. Essential hypertension - ICD9: 401.9, ICD10: I10 - good control - Continue current medication(s) - Encouraged dietary sodium restriction/DASH diet - Recommended regular aerobic exercise. - Recommend home blood pressure monitoring, to bring results in on next visit - Recheck in 1 month, sooner should new symptoms or problems arise. - Follow-up with PCP in 3 months or sooner as needed - Goal of BP <130/80 - HYDROCHLOROTHIAZIDE 12.5 MG CAPSULE - LISINOPRIL 40 MG TABLET 3. Gastroesophageal reflux disease, esophagitis presence not specified - ICD9: 530.81, ICD10: K21.9 - Stable. No alarm symptoms. - Continue treatment with PANTOPRAZOLE 20 MG TABLET,DELAYED RELEASE 4. Other hyperlipidemia - ICD9: 272.4, ICD10: E78.49 - to be determined upon return of lab results - Check lipid panel - PRAVASTATIN 40 MG TABLET - LIPID PANEL, NONFASTING - COMP METABOLIC PANEL Prescription instructions reviewed with patient as applicable. Potential red flag symptoms discussed with the patient. Reviewed appropriate action plan to take if red flag symptoms occur. Patient agreeable to treatment plan. KINGSLEY Hwang APRN.CNP 09/21/2018 3:08 PM Signed Check blood pressure at home Increase dose of hydrochlorothiazide to 25 mg daily (see new prescription) Referring Provider: BRUNO GILES [[id number]] Allergies As of Date: 09/21/2018 (No Known Allergies) Date Reviewed: 09/21/2018 Reviewed by: Yasmeen Friend Cma - Fully Assessed Reason for Visit: Follow Up [171] Primary Visit Diagnosis:Fungal toenail infection [B35.1] Other Visit Diagnoses:Essential hypertension [I10] Gastroesophageal reflux disease, esophagitis presence not specified [K21.9] Other hyperlipidemia [E78.49] Order(s):lisinopril (ZESTRIL, PRINIVIL) 40 mg tabletTake 1 tablet by mouth once daily.Disp: 30 tabletRfl: 5 meloxicam (MOBIC) 15 mg tabletTake 1 tablet by mouth once daily.Disp: 30 tabletRfl: [address] (PROTONIX) 20 mg tabletTake 1 tablet by mouth daily before breakfast. Take on empty stomach, 1/2 hr before meal.Disp: 30 tabletRfl: 5 pravastatin (PRAVACHOL) 40 mg tabletTake 1 tablet by mouth daily at bedtime.Disp: 30 tabletRfl: 5 LIPID PANEL, NONFASTING [SQLIPNF] Order #: [id number] FUTURE hydroCHLOROthiazide (HYDRODIURIL, ESIDRIX) 25 mg tabletTake 1 tablet by mouth once daily.Disp: 30 tabletRfl: 5 terbinafine HCl (LAMISIL) 250 mg tabletTake 1 tablet by mouth once daily.Disp: 30 tabletRfl: 2 COMP METABOLIC PANEL [SQCMP] Order #: [id number] FUTURE Prescriptions as of 09/21/2018 Sig: LISINOPRIL 40 MG TABLET Take 1 tablet by mouth once d* MELOXICAM 15 MG TABLET Take 1 tablet by mouth once d* PANTOPRAZOLE 20 MG TABLET,DEL* Take 1 tablet by mouth daily * PRAVASTATIN 40 MG TABLET Take 1 tablet by mouth daily * TYLENOL ORAL Take 1,000 mg by mouth twice * HYDROCHLOROTHIAZIDE 25 MG TAB* Take 1 tablet by mouth once d* TERBINAFINE HCL 250 MG TABLET Take 1 tablet by mouth once d* Problem List As Of Date 09/21/2018 Noted Resolved Hematuria [R31.9] INVALID FOR* Right flank pain [R10.9] INVALID FOR*02/19/2018 Essential hypertension [I10] Other hyperlipidemia [E78.49] Left shoulder pain [M25.512] INVALID FOR* Other instructions from your clinician: Check blood pressure at home Increase dose of hydrochlorothiazide to 25 mg daily (see new prescription) Prescriptions ordered this encounter Disp Refills Start End HYDROCHLOROTHIAZIDE 12.5 MG CAPSULE 30 c* 5 09/21/2018 09/21/2018 Route: ORAL Sig: Take 1 capsule by mouth once daily. LISINOPRIL 40 MG TABLET 30 t* 5 09/21/2018 Route: ORAL Sig: Take 1 tablet by mouth once daily. MELOXICAM 15 MG TABLET 30 t* 2 09/21/2018 Route: ORAL Sig: Take 1 tablet by mouth once daily. PANTOPRAZOLE 20 MG TABLET,DELAYED RE* 30 t* 5 09/21/2018 Route: ORAL Sig: Take 1 tablet by mouth daily before breakfast. Take on empty stomach, 1/2 hr before meal. PRAVASTATIN 40 MG TABLET 30 t* 5 09/21/2018 Route: ORAL Sig: Take 1 tablet by mouth daily at bedtime. HYDROCHLOROTHIAZIDE 25 MG TABLET 30 t* 5 09/21/2018 Cmt: DOSE INCREASE, CANCEL RX THAT WAS JUST SENT Route: ORAL Sig: Take 1 tablet by mouth once daily. TERBINAFINE HCL 250 MG TABLET 30 t* 2 09/21/2018 12/20/2018 Route: ORAL Sig: Take 1 tablet by mouth once daily. Medications Discontinued During This Encounter Hydrochlorothiazide 12.5 mg capsule 30 c* 5 02/19/2018 09/21/2018 Route: ORAL Sig: Take 1 capsule by mouth once daily. Disc: Reason for discontinue is not on file. lisinopril (ZESTRIL, PRINIVIL) 40 mg* 30 t* 5 06/21/2018 09/21/2018 Route: ORAL Sig: Take 1 tablet by mouth once daily. Disc: Reason for discontinue is not on file. meloxicam (MOBIC) 15 mg tablet 30 t* 2 02/17/2018 09/21/2018 Route: ORAL Sig: Take 1 tablet by mouth once daily. Disc: Reason for discontinue is not on file. pantoprazole DR (PROTONIX) 20 mg tab* 30 t* 5 02/19/2018 09/21/2018 Route: ORAL Sig: Take 1 tablet by mouth daily before breakfast. Take on empty stomach, 1/2 hr before meal. Disc: Reason for discontinue is not on file. pravastatin (PRAVACHOL) 40 mg tablet 30 t* 5 02/19/2018 09/21/2018 Route: ORAL Sig: Take 1 tablet by mouth daily at bedtime. Disc: Reason for discontinue is not on file. Hydrochlorothiazide 12.5 mg capsule 30 c* 5 09/21/2018 09/21/2018 Route: ORAL Sig: Take 1 capsule by mouth once daily. Disc: Reason for discontinue is not on file. Encounter Status:Closed by GINA VAUGHN CNP on 09/21/18 PROGRESS Observed: 09/21/2018 Status: COMPLETED Source: [facility] 2:56 PM [facility] RE[facility] HNO ID: [id number] Author: Gina Villareal) Debora Service: (none) Author Type: Nurse Practitioner Type: Progress Notes Filed: 09/21/2018 3:57 PM Note Text: CC: Patient presents with: Follow Up HPI Anh Flower is a 58 year old male who presents today with his son who is interpreting for him for routine follow-up. HTN: BP elevated today. Does not check at home. Denies any symptoms referable to elevated blood pressure. Specifically denies headache, chest pain, palpitations, dyspnea and peripheral edema. Patient denies any side effects of his medication(s) and is compliant with their regimen. Last 3 Encounter BP Readings: Date: BP: 09/21/2018 158/96 07/21/2018 136/82 06/21/2018 138/89 Requesting treatment for fungal infection of right great toe. Present for 6 months, getting worse. Has tried various topical treatments. Denies pain, redness or swelling of toe. GERD: Taking Protonix daily which has been effective at controlling symptoms. Denies heartburn/reflux, abdominal pain, weight loss, difficulty swallowing, painful swallowing. REVIEW OF SYSTEMS See HPI PAST MEDICAL HISTORY Diagnosis Date - Diverticulosis 12/05/2014 - Essential hypertension - Hemorrhoids 2014 - Hyperlipidemia PAST SURGICAL HISTORY Procedure Laterality Date - COLONOSCOPY 2013 indirect references. Diverticulosis mentioned. - HEMORRHOIDAL 2014 ALLERGIES Patient has no known allergies. MEDICATIONS lisinopril (ZESTRIL, PRINIVIL) 40 mg tablet Take 1 tablet by mouth once daily. pravastatin (PRAVACHOL) 40 mg tablet Take 1 tablet by mouth daily at bedtime. Hydrochlorothiazide 12.5 mg capsule Take 1 capsule by mouth once daily. pantoprazole DR (PROTONIX) 20 mg tablet Take 1 tablet by mouth daily before breakfast. Take on empty stomach, 1/2 hr before meal. meloxicam (MOBIC) 15 mg tablet Take 1 tablet by mouth once daily. ACETAMINOPHEN (TYLENOL ORAL) Take 1,000 mg by mouth twice daily. FAMILY HISTORY Problem Relation Age of Onset - Diabetes Mother - Hypertension Father - Cancer Father - Cancer Sister GI Social History Substance Use Topics - Smoking status: Never Smoker - Smokeless tobacco: Never Used - Alcohol use No PHYSICAL EXAM BP 158/96 Pulse 78 Temp 36.8 ?C (98.3 ?F) (Temporal Artery) Resp 16 Wt 70.8 kg (156 lb) SpO2 98% BMI 25.96 kg/m? General Appearance: well appearing, in no acute distress, alert Neck: Thyroid normal size and symmetric without palpable nodules, No adenopathy Lungs: Lungs clear to auscultation. No wheezing, rhonchi, rales Heart: RRR without murmur, gallop, or rubs. No ectopy Ext: no edema in LE bilaterally, good distal pulses Left great toe: Nail is yellow, crumbly. No evidence of paronychia. BP CONTROLLED (<130/80) due on 1978 ANNUAL PCP TEAM CHRONIC DISEASE VISIT due on 06/21/2019 DIABETES SCREEN due on 02/22/2021 LIPID SCREEN due on 02/22/2023 COLORECTAL CANCER SCREENING,SEE MODIFIER due on 12/05/2024 DTAP,TDAP,TD(2 - Td) due on 09/19/2027 PROSTATE CANCER SCREENING DISCUSSION Completed INFLUENZA Completed HEPATITIS C SCREENING Completed ASSESSMENT/PLAN: 1. Fungal toenail infection - ICD9: 110.1, ICD10: B35.1 (primary diagnosis) Start Lamisil oral. Check baseline CMP first 2. Essential hypertension - ICD9: 401.9, ICD10: I10 - good control - Continue current medication(s) - Encouraged dietary sodium restriction/DASH diet - Recommended regular aerobic exercise. - Recommend home blood pressure monitoring, to bring results in on next visit - Recheck in 1 month, sooner should new symptoms or problems arise. - Follow-up with PCP in 3 months or sooner as needed - Goal of BP <130/80 - HYDROCHLOROTHIAZIDE 12.5 MG CAPSULE - LISINOPRIL 40 MG TABLET 3. Gastroesophageal reflux disease, esophagitis presence not specified - ICD9: 530.81, ICD10: K21.9 - Stable. No alarm symptoms. - Continue treatment with PANTOPRAZOLE 20 MG TABLET,DELAYED RELEASE 4. Other hyperlipidemia - ICD9: 272.4, ICD10: E78.49 - to be determined upon return of lab results - Check lipid panel - PRAVASTATIN 40 MG TABLET - LIPID PANEL, NONFASTING - COMP METABOLIC PANEL Prescription instructions reviewed with patient as applicable. Potential red flag symptoms discussed with the patient. Reviewed appropriate action plan to take if red flag symptoms occur. Patient agreeable to treatment plan. Gina Vaughn APRN.FURNITURE ARRANGER PROGRESS Observed: 07/21/2018 Status: COMPLETED Source: [facility] 3:57 PM [facility] REPOSITORY HNO ID: [id number] Author: Maida Mckeon LPN Service: (none) Author Type: (none) Type: Progress Notes Filed: 07/21/2018 4:06 PM Note Text: Manual Readin/82 Pulse: 74 Reason for blood pressure check - Last BP elevated and Medication adjustment Patient is: Taking medication as prescribed Yes Took medication today Yes If no, date medication last taken N/A Experiencing side effects No BP was elevated at last appt 06/21/18. Lisinopril was increased to 40mg daily at that time. Tolerating medication change well. Does report that he takes this medication at night. Denies any chest pain, shortness of breath, dizziness, or headaches. Daily caffeine use. Past personal history of tobacco use; no current exposure. Alert and oriented. Pt has been identified by name and birthdate: Yes Allergies reviewed: Yes Latex allergy: no. Medication - prescribed and OTC reviewed and updated: Yes Do you need any prescription refills prior to your next visit: No Health Maintenance: Reviewed and not up to date and provider notified Patient advised to continue with current medications and would be contacted with any further instructions after review by PCP. (all information was gathered with assistance of ui designer) Maida Mckeon LPN CNNURSE Observed: 07/21/2018 Status: COMPLETED Source: [facility] 3:00 PM [facility] REPOSITORY Nurse Visit (FAMPWS) ANH WALLIS ([id number]) 1960 M [facility] Date Time Provider Department 07/21/18 3:00 PM [place] NURSE F[facility]WS During your visit today, we recorded the following information about you: Pulse Blood pressure 74/minute 136/82 Maida Mckeon LPN 07/21/2018 4:06 PM Signed Manual Readin/82 Pulse: 74 Reason for blood pressure check - Last BP elevated and Medication adjustment Patient is: Taking medication as prescribed Yes Took medication today Yes If no, date medication last taken N/A Experiencing side effects No BP was elevated at last appt 06/21/18. Lisinopril was increased to 40mg daily at that time. Tolerating medication change well. Does report that he takes this medication at night. Denies any chest pain, shortness of breath, dizziness, or headaches. Daily caffeine use. Past personal history of tobacco use; no current exposure. Alert and oriented. Pt has been identified by name and birthdate: Yes Allergies reviewed: Yes Latex allergy: no. Medication - prescribed and OTC reviewed and updated: Yes Do you need any prescription refills prior to your next visit: No Health Maintenance: Reviewed and not up to date and provider notified Patient advised to continue with current medications and would be contacted with any further instructions after review by PCP. (all information was gathered with assistance of ui designer) Maida Mckeon LPN Referring Provider: SELF [[id number]] Allergies As of Date: 07/21/2018 (No Known Allergies) Date Reviewed: 06/21/2018 Reviewed by: Mariaelena Mendieta LPN - Fully Assessed Reason for Visit: Blood Pressure Check [195] Primary Visit Diagnosis:Essential hypertension [I10] Prescriptions as of 07/21/2018 Sig: LISINOPRIL 40 MG TABLET Take 1 tablet by mouth once d* PRAVASTATIN 40 MG TABLET Take 1 tablet by mouth daily * HYDROCHLOROTHIAZIDE 12.5 MG C* Take 1 capsule by mouth once * PANTOPRAZOLE 20 MG TABLET,DEL* Take 1 tablet by mouth daily * MELOXICAM 15 MG TABLET Take 1 tablet by mouth once d* TYLENOL ORAL Take 1,000 mg by mouth twice * Problem List As Of Date 07/21/2018 Noted Resolved Hematuria [R31.9] INVALID FOR* Right flank pain [R10.9] INVALID FOR*02/19/2018 Essential hypertension [I10] Other hyperlipidemia [E78.4] Left shoulder pain [M25.512] INVALID FOR* Encounter Status:Closed by MAIDA MCKEON LPN on 07/21/18 CNCO Observed: 07/20/2018 Status: COMPLETED Source: [facility] 12:00 AM [facility] REPOSITORY Letter Text Anh Flower July 20, [address] [facility] [address], [place] [address] 07/20/2018 [facility]# [id number] Anh Flower [address] [facility] [address] Dear Mr. James Flower: We have been unsuccessful in reaching you by phone. Please call our office at for further instructions. Thank you. Sincerely, [facility] PROGRESS Observed: 06/21/2018 Status: COMPLETED Source: [facility] 1:54 PM [facility] [place] REPOSITORY HNO ID: [id number] Author: Bruno Giles Service: (none) Author Type: Physician Type: Progress Notes Filed: 06/21/2018 2:00 PM Note Text: This note was created using Viteriter. Subjective Anh Flower is a 58 year old male here for follow up. I communicated with patient and son directly with some help translating from the son . His hypertension was not well controlled. He was taking his medications. His lipids were elevated on the same medication taken for 2 years. He felt well. PAST MEDICAL HISTORY Diagnosis Date - Diverticulosis 12/05/2014 - Essential hypertension - Hemorrhoids 2014 - Hyperlipidemia PAST SURGICAL HISTORY Procedure Laterality Date - COLONOSCOPY 2013 indirect references. Diverticulosis mentioned. - HEMORRHOIDAL 2014 Current Outpatient Prescriptions: pravastatin (PRAVACHOL) 40 mg tablet Take 1 tablet by mouth daily at bedtime. Hydrochlorothiazide 12.5 mg capsule Take 1 capsule by mouth once daily. pantoprazole DR (PROTONIX) 20 mg tablet Take 1 tablet by mouth daily before breakfast. Take on empty stomach, 1/2 hr before meal. meloxicam (MOBIC) 15 mg tablet Take 1 tablet by mouth once daily. lisinopril (ZESTRIL, PRINIVIL) 40 mg tablet Take 1 tablet by mouth once daily. ACETAMINOPHEN (TYLENOL ORAL) Take 1,000 mg by mouth twice daily. No current facility-administered medications for this visit. Review of Systems Constitutional: Negative. Respiratory: Negative. Cardiovascular: Negative. Gastrointestinal: Negative. Genitourinary: Negative. Neurological: Negative. Objective BP 138/89 (BP Site: Left Arm, BP Position: Sitting, BP Cuff Size: Regular Adult) Pulse 82 Temp 36.4 ?C (97.5 ?F) (Left Tympanic) Resp 20 Wt 73 kg (161 lb) BMI 26.79 kg/m? Physical Exam Constitutional: He appears well-nourished. Neck: Normal carotid pulses and no JVD present. Carotid bruit is not present. Cardiovascular: Normal heart sounds. Exam reveals no gallop. No murmur heard. Pulmonary/Chest: Breath sounds normal. Musculoskeletal: He exhibits no edema. Test results pertinent to today's visit were reviewed and discussed with the patient. Assessment and Plan 1. Other hyperlipidemia - ICD9: 272.4, ICD10: E78.4 (primary diagnosis) - to be determined upon return of lab results - Continue current medication. Change medication if repeat lipids still showed the same elevation. - LIPID PANEL BASIC 2. Essential hypertension - ICD9: 401.9, ICD10: I10 - suboptimal control - Increase lisinopril (Zestril/Prinivil) - Reviewed risks of HTN and principles of treatment - LISINOPRIL 40 MG TABLET 3. Screening for colon cancer - ICD9: V76.51, ICD10: Z12.11 Records reviewed. Patient did not recall where he went for a colonoscopy in [place]. References to colonoscopy were reviewed. Son will check other records for possible retrieval of information. Bruno Giles MD CNOV Observed: 06/21/2018 Status: COMPLETED Source: [facility] 10:00 AM [facility] REPOSITORY Office Visit (INTMWS) ANH WALLIS ([id number]) 1960 M [facility] Date Time Provider Department 06/21/18 10:00 AM BRUNO GILES INTMWS During your visit today, we recorded the following information about you: Temperature Pulse Respiration Blood pressure 97.5 degrees 82/minute 20/minute 138/89 Weight 73 kg Bruno Giles MD 06/21/2018 2:00 PM Signed This note was created using Viteriter. Subjective Anh Flower is a 58 year old male here for follow up. I communicated with patient and son directly with some help translating from the son . His hypertension was not well controlled. He was taking his medications. His lipids were elevated on the same medication taken for 2 years. He felt well. PAST MEDICAL HISTORY Diagnosis Date - Diverticulosis 12/05/2014 - Essential hypertension - Hemorrhoids 2014 - Hyperlipidemia PAST SURGICAL HISTORY Procedure Laterality Date - COLONOSCOPY 2013 indirect references. Diverticulosis mentioned. - HEMORRHOIDAL 2014 Current Outpatient Prescriptions: pravastatin (PRAVACHOL) 40 mg tablet Take 1 tablet by mouth daily at bedtime. Hydrochlorothiazide 12.5 mg capsule Take 1 capsule by mouth once daily. pantoprazole DR (PROTONIX) 20 mg tablet Take 1 tablet by mouth daily before breakfast. Take on empty stomach, 1/2 hr before meal. meloxicam (MOBIC) 15 mg tablet Take 1 tablet by mouth once daily. lisinopril (ZESTRIL, PRINIVIL) 40 mg tablet Take 1 tablet by mouth once daily. ACETAMINOPHEN (TYLENOL ORAL) Take 1,000 mg by mouth twice daily. No current facility-administered medications for this visit. Review of Systems Constitutional: Negative. Respiratory: Negative. Cardiovascular: Negative. Gastrointestinal: Negative. Genitourinary: Negative. Neurological: Negative. Objective BP 138/89 (BP Site: Left Arm, BP Position: Sitting, BP Cuff Size: Regular Adult) Pulse 82 Temp 36.4 ?C (97.5 ?F) (Left Tympanic) Resp 20 Wt 73 kg (161 lb) BMI 26.79 kg/m? Physical Exam Constitutional: He appears well-nourished. Neck: Normal carotid pulses and no JVD present. Carotid bruit is not present. Cardiovascular: Normal heart sounds. Exam reveals no gallop. No murmur heard. Pulmonary/Chest: Breath sounds normal. Musculoskeletal: He exhibits no edema. Test results pertinent to today's visit were reviewed and discussed with the patient. Assessment and Plan 1. Other hyperlipidemia - ICD9: 272.4, ICD10: E78.4 (primary diagnosis) - to be determined upon return of lab results - Continue current medication. Change medication if repeat lipids still showed the same elevation. - LIPID PANEL BASIC 2. Essential hypertension - ICD9: 401.9, ICD10: I10 - suboptimal control - Increase lisinopril (Zestril/Prinivil) - Reviewed risks of HTN and principles of treatment - LISINOPRIL 40 MG TABLET 3. Screening for colon cancer - ICD9: V76.51, ICD10: Z12.11 Records reviewed. Patient did not recall where he went for a colonoscopy in [place]. References to colonoscopy were reviewed. Son will check other records for possible retrieval of information. Bruno Giles MD Referring Provider: BRUNO GILES [[id number]] Allergies As of Date: 06/21/2018 (No Known Allergies) Date Reviewed: 06/21/2018 Reviewed by: Mariaelena Mendieta LPN - Fully Assessed Reason for Visit: 4 month follow-up [Other] Primary Visit Diagnosis:Other hyperlipidemia [E78.4] Other Visit Diagnoses:Essential hypertension [I10] Screening for colon cancer [Z12.11] Order(s):lisinopril (ZESTRIL, PRINIVIL) 40 mg tabletTake 1 tablet by mouth once daily.Disp: 30 tabletRfl: 5 LIPID PANEL BASIC [SQLIPB] Order #: [id number] FUTURE Prescriptions as of 06/21/2018 Sig: PRAVASTATIN 40 MG TABLET Take 1 tablet by mouth daily * HYDROCHLOROTHIAZIDE 12.5 MG C* Take 1 capsule by mouth once * PANTOPRAZOLE 20 MG TABLET,DEL* Take 1 tablet by mouth daily * MELOXICAM 15 MG TABLET Take 1 tablet by mouth once d* LISINOPRIL 40 MG TABLET Take 1 tablet by mouth once d* TYLENOL ORAL Take 1,000 mg by mouth twice * Problem List As Of Date 06/21/2018 Noted Resolved Hematuria [R31.9] INVALID FOR* Right flank pain [R10.9] INVALID FOR*02/19/2018 Essential hypertension [I10] Other hyperlipidemia [E78.4] Left shoulder pain [M25.512] INVALID FOR* Prescriptions ordered this encounter Disp Refills Start End LISINOPRIL 40 MG TABLET 30 t* 5 06/21/2018 Route: ORAL Sig: Take 1 tablet by mouth once daily. Medications Discontinued During This Encounter lisinopril (ZESTRIL, PRINIVIL) 20 mg* 30 t* 5 02/19/2018 06/21/2018 Route: ORAL Sig: Take 1 tablet by mouth once daily. Disc: Reason for discontinue is not on file. Disposition: Return in about 6 months (around 12/22/2018). Follow-up and Disposition History Recorded Encounter Status:Closed by BRUNO GILES MD on 06/21/18 PROGRESS Observed: 04/08/2018 Status: COMPLETED Source: [facility] 3:02 PM [facility] [place] REPOSITORY HNO ID: [id number] Author: Jeff Benavidez ([place]) Service: (none) Author Type: Physician [employer] Faculty Member Type: Progress Notes Filed: 04/12/2018 5:58 PM Note Text: [facility] PATIENT INFO: Anh Flower 57 year old PCP: Bruno Giles MD Referred by: Bruno Giles MD Consult: Aconsultation requested by Bruno Giles MD for an opinion regarding Hematuria My final recommendations communicated back to the requesting physician by way of shared Medical record. CHIEF COMPLAINT: Hematuria HPI: This is a 57 year old male, who has had Hematuria and Prostate Check , which started in 2018, and involves the Urine, Prostate Patient states this mild in severity and mild in quality, and is happening intermittently Aggravating factors: No , Alleviating Factors: No . And the patient denies having Fever, Chills, Rigors, Nausea and Vomiting VOIDING SYMPTOMS: NTF: 0-1 Times DTF: Q 2-3 HOURS FOS: Average Hesitancy: No Straining: No Intermittency: Yes Urgency: No Frequency: No Dysuria: No Gross Hematuria: No U/A Dipstick Positive Blood - Only Yes Incomplete Voiding: Yes Double Voiding: No Post Void Dribbling: Yes Incontinence: No ALLERGY: ALLERGIES No Known Allergies MEDICATIONS: Current Outpatient Prescriptions: lisinopril (ZESTRIL, PRINIVIL) 20 mg tablet Take 1 tablet by mouth once daily. Disp: 30 tablet Rfl: 5 pravastatin (PRAVACHOL) 40 mg tablet Take 1 tablet by mouth daily at bedtime. Disp: 30 tablet Rfl: 5 Hydrochlorothiazide 12.5 mg capsule Take 1 capsule by mouth once daily. Disp: 30 capsule Rfl: [address] (PROTONIX) 20 mg tablet Take 1 tablet by mouth daily before breakfast. Take on empty stomach, 1/2 hr before meal. Disp: 30 tablet Rfl: 5 meloxicam (MOBIC) 15 mg tablet Take 1 tablet by mouth once daily. Disp: 30 tablet Rfl: 2 ACETAMINOPHEN (TYLENOL ORAL) Take 1,000 mg by mouth twice daily. Disp: Rfl: No current facility-administered medications for this visit. Past Medical History PAST MEDICAL HISTORY Diagnosis Date - Essential hypertension - Hyperlipidemia Past Surgical History PAST SURGICAL HISTORY Procedure Laterality Date - COLONOSCOPY 2012 ?? - HEMORRHOIDAL 2016 Family History FAMILY HISTORY Problem Relation Age of Onset - Diabetes Mother - Hypertension Father - Cancer Father - Cancer Sister GI REVIEW OF SYSTEMS: General: General: Well developed, well nourished. No acute distress HEENT: Negative for sore throat, difficulty swallowing. Negative for frequent or significant headaches, changes in vision or hearing. Cardiovascular: No history of cardiovascular symtoms or problems. No history of angina, CHF, [place], cardiac surgery of stents. Respiratory: Negative for current cough, dyspnea. No hx of pneumonia in the past six weeks Gastrointestinal: No history of GERD, PUD, abd pain, difficulty swallowing, GI bleed. Renal: Negative for renal failure and No history of dialysis Musculoskeletal: Negative for joint pain or swelling, back pain or muscle pain. Skin: Negative for lesions, rash and itching. Psychological: No history of psychiatric symptoms or problems. Neurologic: No history of TIA's, stroke, MANAGED CARE NURSE tumor, impaired sensorium, hemiplegia, paraplegia or quadriplegia. No neurological symptoms or problems. Hematology/Oncology: No history of bleeding or clotting disorder. Pt is not taking anti-coagulation or platelet medications. No history of hematological symptoms or problems. Endocrine: No history of endocrinological symtoms or problems No history of DM; has not taken steroids w/in past 30 days. Negative for excessive sweating, thirst or hunger PHYSICAL EXAMINATION: General Appearance/ Constitutional: Well developed, well nourished, and in no apparent distress HEENT: Not examined Neck: Lymph Nodes: Not examined Cardiac: Normal Breast: Not examined Pulmonary: Ascultation: Normal Effort: Normal GI: Soft and Non-tender Peripheral Vascular: Not examined Extremities: Cyanosis absent and Edema absent Skin: Normal Neurologic: Grossly non-focal and Alert and oriented (MALE): Penis: Normal without external lesions Testicles: bilaterally and normal Cord/Epididymis: bilaterally and normal Vas Deferens: bilaterally and normal Scrotum: Normal Prostate: About 30 gm, non tender, no nodules ADDITIONAL DATA REVIEWED: Most recent imaging Most recent labs Results for orders placed or performed in visit on 02/22/18 LIPID PANEL BASIC Result Value Ref Range Cholesterol, Total 237 (H) <200 mg/dL Triglyceride 309 (H) <150 mg/dL HDL Cholesterol 34 (L) >39 mg/dL LDL Cholesterol 141 (H) <100 mg/dL Non HDL Cholesterol 203 (H) <130 mg/dL Fasting Time 16 hrs VLDL Cholesterol 62 (H) <30 mg/dL TC:HDL Ratio 6.97 (H) <5.10 LDL:HDL Ratio 4.15 (H) <2.54 CBC + DIFF Result Value Ref Range WBC 6.58 3.70 - 11.00 k/uL RBC 5.33 4.20 - 6.00 m/uL Hemoglobin 15.3 13.0 - 17.0 g/dL Hematocrit 45.8 39.0 - 51.0 % MCV 85.9 80.0 - 100.0 fL MCH 28.7 26.0 - 34.0 pG MCHC 33.4 30.5 - 36.0 g/dL RDW-CV 13.2 11.5 - 15.0 % Platelet Count 258 150 - 400 k/uL MPV 10.4 9.0 - 12.7 fL Neut% 57.1 % Abs Neut (ANC) 3.75 1.45 - 7.50 k/uL Lymph% 32.2 % Abs Lymph 2.12 1.00 - 4.00 k/uL Grady% 9.0 % Abs Grady 0.59 <0.87 k/uL Eosin% 0.8 % Abs Eosin 0.05 <0.46 k/uL Baso% 0.9 % Abs Baso 0.06 <0.11 k/uL Nucleated Reds 0.0 0 /100 WBC Absolute nRBC <0.01 <0.01 k/uL Diff Type Auto Diff COMP METABOLIC PANEL Result Value Ref Range Protein, Total 6.8 6.3 - 8.0 g/dL Albumin 4.1 3.9 - 4.9 g/dL Calcium 8.9 8.5 - 10.2 mg/dL Bilirubin, Total 0.7 0.2 - 1.3 mg/dL Alkaline Phosphatase 75 36 - 108 U/L AST 22 14 - 40 U/L Glucose 95 74 - 99 mg/dL BUN 12 9 - 24 mg/dL Creatinine 0.89 0.73 - 1.22 mg/dL Sodium 140 136 - 144 mmol/L Potassium 4.1 3.7 - 5.1 mmol/L Chloride 101 97 - 105 mmol/L CO2 27 22 - 30 mmol/L Anion Gap 12 9 - 18 mmol/L ALT 27 10 - 54 U/L eGFR- >60 eGFR-All Other Races >60 . PSA/PROSTSPECAG DIAG Result Value Ref Range PSA 1.84 0.00 - 2.59 ng/mL HEP C AB IA W/CONF SCRN Result Value Ref Range Hep C Antibody IA Negative Negative Urine Microscopic 0 RBC's /hpf IMPRESSION / PLAN: > History of of BPH since 2011 > Blood +ve on U/A Dip only, no gross blood > DIAMOND 30 g no nodules > PSA - 1.84 > Follow up if bothersome urinary symptoms or gross hematuria I spent approximately 40 minutes in this visit, with more than 50% of the time devoted to patient discussion, counseling, review of records and/or coordination of care. REJI Valdes, MT, LEONIDAS LOPEZ Observed: 04/08/2018 Status: COMPLETED Source: [place] 2:30 PM [facility] REPOSITORY Office Visit (UROLWS) ANH WALLIS ([id number]) 1960 M COMFORT Date Time Provider Department 04/08/18 2:30 PM JEFF BENAVIDEZ) UROLWS During your visit today, we recorded the following information about you: Pulse Blood pressure 72/minute 140/70 KARINA Thornton 04/12/2018 5:58 PM Signed [facility] PATIENT INFO: Anh Flower 57 year old PCP: Bruno Giles MD Referred by: Bruno Giles MD Consult: Aconsultation requested by Bruno Giles MD for an opinion regarding Hematuria My final recommendations communicated back to the requesting physician by way of shared Medical record. CHIEF COMPLAINT: Hematuria HPI: This is a 57 year old male, who has had Hematuria and Prostate Check , which started in 2018, and involves the Urine, Prostate Patient states this mild in severity and mild in quality, and is happening intermittently Aggravating factors: No , Alleviating Factors: No . And the patient denies having Fever, Chills, Rigors, Nausea and Vomiting VOIDING SYMPTOMS: NTF: 0-1 Times DTF: Q 2-3 HOURS FOS: Average Hesitancy: No Straining: No Intermittency: Yes Urgency: No Frequency: No Dysuria: No Gross Hematuria: No U/A Dipstick Positive Blood - Only Yes Incomplete Voiding: Yes Double Voiding: No Post Void Dribbling: Yes Incontinence: No ALLERGY: ALLERGIES No Known Allergies MEDICATIONS: Current Outpatient Prescriptions: lisinopril (ZESTRIL, PRINIVIL) 20 mg tablet Take 1 tablet by mouth once daily. Disp: 30 tablet Rfl: 5 pravastatin (PRAVACHOL) 40 mg tablet Take 1 tablet by mouth daily at bedtime. Disp: 30 tablet Rfl: 5 Hydrochlorothiazide 12.5 mg capsule Take 1 capsule by mouth once daily. Disp: 30 capsule Rfl: [address] (PROTONIX) 20 mg tablet Take 1 tablet by mouth daily before breakfast. Take on empty stomach, 1/2 hr before meal. Disp: 30 tablet Rfl: 5 meloxicam (MOBIC) 15 mg tablet Take 1 tablet by mouth once daily. Disp: 30 tablet Rfl: 2 ACETAMINOPHEN (TYLENOL ORAL) Take 1,000 mg by mouth twice daily. Disp: Rfl: No current facility-administered medications for this visit. Past Medical History PAST MEDICAL HISTORY Diagnosis Date - Essential hypertension - Hyperlipidemia Past Surgical History PAST SURGICAL HISTORY Procedure Laterality Date - COLONOSCOPY 2012 ?? - HEMORRHOIDAL 2016 Family History FAMILY HISTORY Problem Relation Age of Onset - Diabetes Mother - Hypertension Father - Cancer Father - Cancer Sister GI REVIEW OF SYSTEMS: General: General: Well developed, well nourished. No acute distress HEENT: Negative for sore throat, difficulty swallowing. Negative for frequent or significant headaches, changes in vision or hearing. Cardiovascular: No history of cardiovascular symtoms or problems. No history of angina, CHF, FL, cardiac surgery of stents. Respiratory: Negative for current cough, dyspnea. No hx of pneumonia in the past six weeks Gastrointestinal: No history of GERD, PUD, abd pain, difficulty swallowing, GI bleed. Renal: Negative for renal failure and No history of dialysis Musculoskeletal: Negative for joint pain or swelling, back pain or muscle pain. Skin: Negative for lesions, rash and itching. Psychological: No history of psychiatric symptoms or problems. Neurologic: No history of TIA's, stroke, MANAGED CARE NURSE tumor, impaired sensorium, hemiplegia, paraplegia or quadriplegia. No neurological symptoms or problems. Hematology/Oncology: No history of bleeding or clotting disorder. Pt is not taking anti-coagulation or platelet medications. No history of hematological symptoms or problems. Endocrine: No history of endocrinological symtoms or problems No history of DM; has not taken steroids w/in past 30 days. Negative for excessive sweating, thirst or hunger PHYSICAL EXAMINATION: General Appearance/ Constitutional: Well developed, well nourished, and in no apparent distress HEENT: Not examined Neck: Lymph Nodes: Not examined Cardiac: Normal Breast: Not examined Pulmonary: Ascultation: Normal Effort: Normal GI: Soft and Non-tender Peripheral Vascular: Not examined Extremities: Cyanosis absent and Edema absent Skin: Normal Neurologic: Grossly non-focal and Alert and oriented (MALE): Penis: Normal without external lesions Testicles: bilaterally and normal Cord/Epididymis: bilaterally and normal Vas Deferens: bilaterally and normal Scrotum: Normal Prostate: About 30 gm, non tender, no nodules ADDITIONAL DATA REVIEWED: Most recent imaging Most recent labs Results for orders placed or performed in visit on 02/22/18 LIPID PANEL BASIC Result Value Ref Range Cholesterol, Total 237 (H) <200 mg/dL Triglyceride 309 (H) <150 mg/dL HDL Cholesterol 34 (L) >39 mg/dL LDL Cholesterol 141 (H) <100 mg/dL Non HDL Cholesterol 203 (H) <130 mg/dL Fasting Time 16 hrs VLDL Cholesterol 62 (H) <30 mg/dL TC:HDL Ratio 6.97 (H) <5.10 LDL:HDL Ratio 4.15 (H) <2.54 CBC + DIFF Result Value Ref Range WBC 6.58 3.70 - 11.00 k/uL RBC 5.33 4.20 - 6.00 m/uL Hemoglobin 15.3 13.0 - 17.0 g/dL Hematocrit 45.8 39.0 - 51.0 % MCV 85.9 80.0 - 100.0 fL MCH 28.7 26.0 - 34.0 pG MCHC 33.4 30.5 - 36.0 g/dL RDW-CV 13.2 11.5 - 15.0 % Platelet Count 258 150 - 400 k/uL MPV 10.4 9.0 - 12.7 fL Neut% 57.1 % Abs Neut (ANC) 3.75 1.45 - 7.50 k/uL Lymph% 32.2 % Abs Lymph 2.12 1.00 - 4.00 k/uL Grady% 9.0 % Abs Grady 0.59 <0.87 k/uL Eosin% 0.8 % Abs Eosin 0.05 <0.46 k/uL Baso% 0.9 % Abs Baso 0.06 <0.11 k/uL Nucleated Reds 0.0 0 /100 WBC Absolute nRBC <0.01 <0.01 k/uL Diff Type Auto Diff COMP METABOLIC PANEL Result Value Ref Range Protein, Total 6.8 6.3 - 8.0 g/dL Albumin 4.1 3.9 - 4.9 g/dL Calcium 8.9 8.5 - 10.2 mg/dL Bilirubin, Total 0.7 0.2 - 1.3 mg/dL Alkaline Phosphatase 75 36 - 108 U/L AST 22 14 - 40 U/L Glucose 95 74 - 99 mg/dL BUN 12 9 - 24 mg/dL Creatinine 0.89 0.73 - 1.22 mg/dL Sodium 140 136 - 144 mmol/L Potassium 4.1 3.7 - 5.1 mmol/L Chloride 101 97 - 105 mmol/L CO2 27 22 - 30 mmol/L Anion Gap 12 9 - 18 mmol/L ALT 27 10 - 54 U/L eGFR- >60 eGFR-All Other Races >60 . PSA/PROSTSPECAG DIAG Result Value Ref Range PSA 1.84 0.00 - 2.59 ng/mL HEP C AB IA W/CONF SCRN Result Value Ref Range Hep C Antibody IA Negative Negative Urine Microscopic 0 RBC's /hpf IMPRESSION / PLAN: > History of of BPH since 2011 > Blood +ve on U/A Dip only, no gross blood > DIAMOND 30 g no nodules > PSA - 1.84 > Follow up if bothersome urinary symptoms or gross hematuria I spent approximately 40 minutes in this visit, with more than 50% of the time devoted to patient discussion, counseling, review of records and/or coordination of care. Jeff Benavidez, REJI, MT, LEONIDAS Referring Provider: BRUNO GILES [[id number]] Allergies As of Date: 04/08/2018 (No Known Allergies) Date Reviewed: 04/08/2018 Reviewed by: Denise Rodriguez LPN - Fully Assessed Reason for Visit: Hematuria [335] Primary Visit Diagnosis:BPH without obstruction/lower urinary tract symptoms [N40.0] Other Visit Diagnosis:Hematuria, unspecified type [R31.9] Order(s):UA DIP, URINE (POC) [[id number]] Order #: [id number] UA DIP, URINE (POC) [[id number]] Order #: [id number] #:[id number] Prescriptions as of 04/08/2018 Sig: LISINOPRIL 20 MG TABLET Take 1 tablet by mouth once d* PRAVASTATIN 40 MG TABLET Take 1 tablet by mouth daily * HYDROCHLOROTHIAZIDE 12.5 MG C* Take 1 capsule by mouth once * PANTOPRAZOLE 20 MG TABLET,DEL* Take 1 tablet by mouth daily * MELOXICAM 15 MG TABLET Take 1 tablet by mouth once d* TYLENOL ORAL Take 1,000 mg by mouth twice * Problem List As Of Date 04/08/2018 Noted Resolved Hematuria [R31.9] INVALID FOR* Right flank pain [R10.9] INVALID FOR*02/19/2018 Essential hypertension [I10] Other hyperlipidemia [E78.4] Left shoulder pain [M25.512] INVALID FOR* Disposition: Return if symptoms worsen or fail to improve. Follow-up and Disposition History Recorded Encounter Status:Closed by JEFF BENAVIDEZ PA-C on 04/12/18 CNCO Observed: 04/08/2018 Status: COMPLETED Source: [place] 12:00 AM [facility] REPOSITORY Letter Text Department of Internal Medicine [facility] [address] [place], [place] [id number] 04/08/2018 Anh Flower [facility]# [id number] [facility] [address] TO WHOM IT MAY CONCERN: This is to confirm that Anh Flower had an appointment and was seen at the [facility] in the Department of Urology Medicine by Jeff COLLINS on 04/08/2018. Sincerely yours, Xavier Jake CBC Collected: 02/22/2018 Status: F Source: [facility] 10:50 PM [facility] REPOSITORY TYPE CODE TESTS RESULT OUT OF REFERENCE UNITS RANGE LAB WBC(LOINC) 4.60-10.80 10 3/mcL WBC 9.30 LAB RBCCT(LOINC 4.04-6.13 10 6/mcL ) RBC 5.56 LAB HGB(LOINC) 14.0-18.0 G/dL Hgb 16.2 LAB HCT(LOINC) 42.0-52.0 % Hct 45.6 LAB MCV(LOINC) 80.0-94.0 fL MCV 82.0 LAB MCH(LOINC) 27.0-31.2 pg MCH 29.1 LAB MCHC(LOINC) 31.8-35.4 G/dL High MCHC 35.5 LAB RDW(LOINC) 11.5-14.5 % RDW 13.9 LAB PLT(LOINC) 130-400 10 3/mcL Platelet 261 LAB MPV(LOINC) 7.4-10.4 fL MPV 8.0 Performed By: #### CBC, ADIFF, ANEU, TROP, GFR, BMP #### [address] [place], [place] [address] .AUTO DIFF Collected: 02/22/2018 Status: F Source: [facility] 10:50 PM [facility] REPOSITORY TYPE CODE TESTS RESULT OUT OF REFERENCE UNITS RANGE LAB JUANY(LOINC) 37.0-80.0 % Neutrophil % 53.7 LAB LYM(LOINC) 10.0-50.0 % Lymphocyte % 33.5 LAB MON(LOINC) 1.7-13.0 % Monocyte % 10.7 LAB EO(LOINC) 0.0-7.0 % Eosinophil % 0.8 LAB BAS(LOINC) 0.0-2.5 % Basophil % 1.3 LAB ABLYM(LOIN 0.77-3.85 10 3/mcL C) Lymphocyte, 3.10 Absolute LAB KHRIS(LOINC 0.15-1.00 10 3/mcL ) Monocyte, 1.00 Absolute LAB AEOS(LOINC 0.00-0.40 10 3/mcL ) Eosinophil, 0.10 Absolute LAB ABAS(LOINC 0.00-0.19 10 3/mcL ) Basophil, 0.10 Absolute Performed By: #### CBC, ADIFF, ANEU, TROP, GFR, BMP #### [place] [id number] .NEUABS Collected: 02/22/2018 Status: F Source: [employer] 10:50 PM [facility] REPOSITORY TYPE CODE TESTS RESULT OUT OF REFERENCE UNITS RANGE LAB ANEU(LOINC) 2.85-6.16 10 3/mcL Neutrophil, 5.00 Absolute Performed By: #### CBC, ADIFF, ANEU, TROP, GFR, BMP #### [address] [address] TROP Collected: 02/22/2018 Status: F Source: [employer] 10:50 PM [facility] REPOSITORY TYPE CODE TESTS RESULT OUT OF REFERENCE UNITS RANGE LAB TROP(LOINC) 0.00-0.30 ng/mL Troponin <0.30 Result Comment: Below measuring range >=0.30 Consistent with cardiac damage, increased clinical risk and possibility of myocardial infarction. Serial measurements, clinical history, appropriate symptoms and/or ECG changes may help assess possibility of FL. *Other non-acute coronary syndrome conditions such as CHF, myocarditis, pulmonary emboli, sepsis and cardiac surgery could result in myocardial damage and increased troponin levels. Performed By: #### CBC, ADIFF, ANEU, TROP, GFR, BMP #### [address] [address] .GFR Collected: 02/22/2018 Status: F Source: [employer] 10:50 PM [facility] REPOSITORY TYPE CODE TESTS RESULT OUT OF REFERENCE UNITS RANGE LAB GFRAA(LOINC ml/min/1.73 ) sqm GFR 98 Welsh Result Comment: GFR Population mean for , Non- Americans Ages 20-29 = 116 mL/min/1.73 sq.m. Ages 30-39 = 107 mL/min/1.73 sq.m. Ages 40-49 = 99 mL/min/1.73 sq.m. Ages 50-59 = 93 mL/min/1.73 sq.m. Ages 60-69 = 85 mL/min/1.73 sq.m. Ages 70+ = 75 mL/min/1.73 sq.m. Chronic Kidney Disease: Less than 60 mL/min/1.73 square meters End Stage Renal Disease: Less than 15 mL/min/1.73 square meters LAB GFRNO(LOINC) ml/min/1.73sqm GFR Non- >60 Result Comment: GFR Population mean for , Non- Americans Ages 20-29 = 116 mL/min/1.73 sq.m. Ages 30-39 = 107 mL/min/1.73 sq.m. Ages 40-49 = 99 mL/min/1.73 sq.m. Ages 50-59 = 93 mL/min/1.73 sq.m. Ages 60-69 = 85 mL/min/1.73 sq.m. Ages 70+ = 75 mL/min/1.73 sq.m. Chronic Kidney Disease: Less than 60 mL/min/1.73 square meters End Stage Renal Disease: Less than 15 mL/min/1.73 square meters Performed By: #### CBC, ADIFF, ANEU, TROP, GFR, BMP #### [address] [address] BMP Collected: 02/22/2018 Status: F Source: [facility] [employer] 10:50 PM [facility] REPOSITORY TYPE CODE TESTS RESULT OUT OF REFERENCE UNITS RANGE LAB 1547-9 70-105 mg/dL GLUCOSE 101 LAB NA(LOINC) 136-146 mEq/L Sodium Level 140 LAB K(LOINC) 3.5-5.1 mEq/L Potassium Level 3.7 LAB CL(LOINC) 98-107 mEq/L Chloride 99 LAB CO2(LOINC) 22-29 mEq/L CO2 29 LAB EBAL(LOINC mEq/L ) Electrolyte Balance 12.0 LAB BUN(LOINC) 7.0-18.0 mg/dL BUN 13.5 LAB CRE(LOINC) 0.6-1.2 mg/dL Creatinine Lvl (s) 1.0 LAB BC(LOINC) 7-27 ratio BUN/Creatinine 14 Ratio LAB CA(LOINC) 8.4-10.2 mg/dL Calcium Lvl 9.6 Performed By: #### CBC, ADIFF, ANEU, TROP, GFR, BMP #### [facility] [address] [place], [place] [address] CBC AND DIFFERENTIAL Collected: 02/22/2018 Status: F Source: [place] 10:10 AM [facility] REPOSITORY TYPE CODE TESTS RESULT OUT OF REFERENCE UNITS RANGE LAB WBC 3.70-11.00 k/uL WBC 6.58 LAB RBC 4.20-6.00 m/uL RBC 5.33 LAB HGB 13.0-17.0 g/dL Hemoglobin 15.3 LAB HCT 39.0-51.0 % Hematocrit 45.8 LAB MCV 80.0-100.0 fL MCV 85.9 LAB MCH 26.0-34.0 pG MCH 28.7 LAB MCHC 30.5-36.0 g/dL MCHC 33.4 LAB RDWCV 11.5-15.0 % RDW-CV 13.2 LAB PLTCT 150-400 k/uL Platelet Count 258 LAB MPV 9.0-12.7 fL MPV 10.4 LAB ANEUT % Neut% 57.1 LAB AANEUT 1.45-7.50 k/uL Abs Neut 3.75 LAB ALYMP % Lymph% 32.2 LAB AALYMP 1.00-4.00 k/uL Abs Lymph 2.12 LAB AMONO % Grady% 9.0 LAB AAMONO <0.87 k/uL Abs Grady 0.59 LAB AEOS % Eosin% 0.8 LAB AAEOS <0.46 k/uL Abs Eosin 0.05 LAB ABASO % Baso% 0.9 LAB AABASO <0.11 k/uL Abs Baso 0.06 LAB AUNRBC 0 /100 WBC NRBCs 0.0 LAB ABNRBC <0.01 k/uL Absolute nRBC <0.01 LAB DTYP DTYPE Auto Diff Performed By: #### CBCDIF, PSA, CMP, LIPB, AHCV1B #### [facility] [address] [place], [place] [address] PSA, DIAGNOSTIC Collected: 02/22/2018 Status: F Source: [place] 10:10 AM [facility] REPOSITORY TYPE CODE TESTS RESULT OUT OF REFERENCE UNITS RANGE LAB PSA 0.00-2.59 ng/mL PSA, Diagnostic 1.84 Result Comment: Total PSA test methodology used is the Electrochemiluminescence Immunoassay. Performed By: #### CBCDIF, PSA, CMP, LIPB, AHCV1B #### [facility] [address] [place], [place] [address] COMP METABOLIC PANEL Collected: 02/22/2018 Status: F Source: [place] 10:10 AM [facility] REPOSITORY TYPE CODE TESTS RESULT OUT OF REFERENCE UNITS RANGE LAB TP 6.3-8.0 g/dL Protein, Total 6.8 LAB ALB 3.9-4.9 g/dL Albumin 4.1 LAB CA 8.5-10.2 mg/dL Calcium, Total 8.9 LAB TBIL 0.2-1.3 mg/dL Bilirubin, Total 0.7 LAB ALKP 36-108 U/L Alkaline Phosphatase 75 LAB AST 14-40 U/L AST 22 LAB GLU 74-99 mg/dL Glucose 95 Result Comment: The [place] Diabetes Association (ADA) provides guidance for cutoff values for fasting glucose and random glucose. The ADA defines fasting as no caloric intake for at least 8 hours. Fas ting plasma glucose results between 100 to 125 mg/dL indicate increased risk for diabetes (prediabetes). Fasting plasma glucose results greater than or equal to 126 mg/dL meet the criteria for diagnosis of diabetes. In the absence of unequivocal hyperglycemia, results should be confirmed by repeat testing. In a patient with classic symptoms of hyperglycemia or hyperglycemic crisis, random plasma glucose results greater than or equal to 200 mg/dL meet the criteria for diagnosis of diabetes. Reference: Standards of Medical Care in Diabetes 2016, [place] Diabetes Association. Diabetes Care. 2016.39(Suppl 1). LAB BUN 9-24 mg/dL BUN 12 LAB CRET 0.73-1.22 mg/dL Creatinine 0.89 LAB NA 136-144 mmol/L Sodium 140 LAB K 3.7-5.1 mmol/L Potassium 4.1 LAB CL 97-105 mmol/L Chloride 101 LAB CO2 22-30 mmol/L CO2 27 LAB AGAP 9-18 mmol/L Anion Gap 12 LAB ALT 10-54 U/L ALT 27 LAB GFRAA eGFR- Amer. >60 LAB GFRNAA . eGFR-All Other Races >60 Result Comment: eGFR (Estimated GFR) Units of measure: mL/min/1.73 meters squared eGFR is derived from the reexpressed MDRD Study equation using the following parameters: serum creatinine, age, gender and race. The creatinine assay has been calibrated to be traceable to IDMS. An eGFR <60 mL/min/1.73m2 for >3 months is consistent with chronic kidney disease. Refer to KDOQI guidelines for clinical interpretation. In patients with unstable renal function, e.g. those with acute kidney injury, the eGFR may not accurately reflect actual GFR. Performed By: #### CBCDIF, PSA, CMP, LIPB, AHCV1B #### [facility] [address] [place], [place] [address] LIPID PANEL, BASIC Collected: 02/22/2018 Status: F Source: [place] 10:10 AM [facility] [place] REPOSITORY TYPE CODE TESTS RESULT OUT OF REFERENCE UNITS RANGE LAB CHOL <200 mg/dL Cholesterol High 237 Result Comment: <200 mg/dL, Desirable 200-239 mg/dL, Borderline high >239 mg/dL, High LAB TRIGLY <150 mg/dL Triglyceride High 309 Result Comment: <150 mg/dL, Normal 150-199 mg/dL, Borderline high 200-499 mg/dL, High >499 mg/dL, Very high LAB HDL >39 mg/dL HDL-Cholesterol Low 34 Result Comment: 40-59 mg/dL, Acceptable >59 mg/dL, High: Negative risk factor for coronary heart disease <40 mg/dL, Low: Positive risk factor for coronary heart disease LAB LDL <100 mg/dL LDL-Cholesterol High 141 Result Comment: <100 mg/dL, Optimal 100-129 mg/dL, Near optimal/above optimal 130-159 mg/dL, Borderline high 160-189 mg/dL, High >189 mg/dL, Very high Secondary prevention optimal LDL Cholesterol levels are recommended to be < 70 mg/dL LAB NONHDL <130 mg/dL Non HDL High Cholesterol 203 Result Comment: <130 mg/dL, Optimal 130-159 mg/dL, Near optimal/above optimal 160-189 mg/dL, Borderline high 190-219 mg/dL, High >219 mg/dL, Very high Secondary prevention optimal non HDL Cholesterol levels are recommended to be < 100 mg/dL LAB FT hrs Fasting Time 16 LAB VLDL <30 mg/dL High VLDL Cholesterol 62 LAB TCHDL <5.10 High TC:HDL Ratio 6.97 LAB LDLHDL <2.54 High LDL:HDL Ratio 4.15 Result Comment: Reference: 1. National Cholesterol Education Program ATP III Guideline At-A-Glance Quick Desk Reference: National Heart, Lung, and Blood [place]. National Institutes of Health. 2001: NIH Publication No. 01-3305. 2. An International Atherosclerosis Society position paper: global recommendations for the management of dyslipidemia: executive summary, Atherosclerosis. 2014: 232(2):410-413. Performed By: #### CBCDIF, PSA, CMP, LIPB, AHCV1B #### [facility] [address] [place], [place] [address] HEP C AB IA W/CONF Collected: 02/22/2018 Status: F Source: [place] 10:10 AM [facility] REPOSITORY TYPE CODE TESTS RESULT OUT OF REFERENCE UNITS RANGE LAB AHCV Negative Hepatitis C Ab Negative IA Performed By: #### CBCDIF, PSA, CMP, LIPB, AHCV1B #### [facility] [address] [place], [place] [address] URINALYSIS WITH Collected: 02/22/2018 Status: F Source: [facility] 10:08 AM [facility] REPOSITORY TYPE CODE TESTS RESULT OUT OF RANGE REFERENCE UNITS LAB UCOL Yellow Color Yellow LAB [facility] Clear Clarity Clear LAB UGLUC Negative mg/dL Glucose, Urine Negative LAB UBIL Negative Bilirubin, Urine Negative LAB UKET Negative Ketones, Urine Negative LAB USPG 1.005-1.030 Specific [place], Ur 1.019 LAB UHGB Negative Abnormal Hemoglobin/Blood, 1+ Alert Ur LAB UPH 4.5-8.0 pH 6.0 LAB UPROT Negative mg/dL Protein, Abnormal Urine 100 Alert LAB UUROB Normal Urobilinogen Normal LAB UNITR Negative Nitrites Negative LAB ULKEST Negative Leukest Negative LAB UCOM Comments SEE COMMENT Result Comment: N/A LAB UMCOM Urine SEE Adan Comment COMMENT Result Comment: N/A LAB UWBC 0-5 /HPF WBC 0-5 LAB URBC 0-3 /HPF RBC 0-3 Performed By: #### UAWMIC #### [facility] [address] [place], [place] [address] PROGRESS Observed: 02/19/2018 Status: COMPLETED Source: [facility] 10:43 PM [facility] REPOSITORY HNO ID: [id number] Author: Bruno Giles Service: (none) Author Type: Physician Type: Progress Notes Filed: 02/19/2018 11:28 PM Note Text: This note was created using [employer]. Subjective Patient presents with: Establish Care HPI: Anh Flower was here with his son to establish care. He spoke only Palauan, and agreed to have his son translate, as translation service was not set up. He was offered another appointment to set this up, but he declined. I had some rudimentary medical Palauan skills with which we communicated as well. He mentioned epigastric pain, radiating up the sternum off and on for 3 weeks, unrelated to physical exertion, and relieved by Nexium over the counter. He also mentioned a day of painless hematuria 3 weeks ago. His hypertension and hyperlipidemia were controlled. He was seeing orthopedics for left shoulder tendinopathy. PAST MEDICAL HISTORY Diagnosis Date - Essential hypertension - Hyperlipidemia PAST SURGICAL HISTORY Procedure Laterality Date - COLONOSCOPY 2012 ?? - HEMORRHOIDAL 2016 FAMILY HISTORY Problem Relation Age of Onset - Diabetes Mother - Hypertension Father - Cancer Father - Cancer Sister GI Social History Marital status: Spouse name: Years of education: Number of children: 6 Occupational History Occupation Employer Comment laborer hoisting Social History Main Topics Smoking status: Never Smoker Smokeless status: Never Used Alcohol use: No Drug use: No Review of Systems Constitutional: Negative. HENT: Negative. Eyes: Negative. Respiratory: Negative. Cardiovascular: Positive for chest pain. Negative for palpitations and leg swelling. Gastrointestinal: Positive for abdominal pain. Negative for blood in stool, constipation, diarrhea, nausea and vomiting. Genitourinary: Negative. Musculoskeletal: Positive for arthralgias. Skin: Negative. Neurological: Negative. Objective BP 134/86 Pulse 75 Temp 36.9 ?C (98.5 ?F) (Tympanic) Resp 16 Ht 165.1 cm (5' 5) Wt 75.8 kg (167 lb) BMI 27.79 kg/m2 Physical Exam Constitutional: He appears well-nourished. HENT: Head: Normocephalic and atraumatic. Nose: Nose normal. Mouth/Throat: Oropharynx is clear and moist. Eyes: Conjunctivae and EOM are normal. Pupils are equal, round, and reactive to light. Neck: Neck supple. No tracheal deviation present. No thyromegaly present. Cardiovascular: Regular rhythm, normal heart sounds and intact distal pulses. Exam reveals no gallop. No murmur heard. Pulmonary/Chest: Effort normal and breath sounds normal. Abdominal: Soft. Bowel sounds are normal. He exhibits no mass. There is no tenderness. Musculoskeletal: Normal range of motion. He exhibits no edema, tenderness or deformity. Lymphadenopathy: He has no cervical adenopathy. Neurological: He is alert. He exhibits normal muscle tone. Coordination normal. Skin: Skin is warm and dry. EKG RESULTS: normal EKG, normal sinus rhythm Assessment and Plan 1. Essential hypertension - ICD9: 401.9, ICD10: I10 (primary diagnosis) - good control - Continue current medication(s) - Reviewed risks of HTN and principles of treatment - LISINOPRIL 20 MG TABLET - HYDROCHLOROTHIAZIDE 12.5 MG CAPSULE - ECG COMPLETE W INTERPRETATION - CBC + DIFF 2. Other hyperlipidemia - ICD9: 272.4, ICD10: E78.4 - to be determined upon return of lab results - Continue current medication. - PRAVASTATIN 40 MG TABLET - COMP METABOLIC PANEL 3. Hematuria, unspecified type - ICD9: 599.70, ICD10: R31.9 - Further testing if abnormal. - URINALYSIS WITH MICROSCOPIC 4. Gastroesophageal reflux disease, esophagitis presence not specified - ICD9: 530.81, ICD10: K21.9 Discussed medication dosage, usage, goals of therapy, and side effects. - PANTOPRAZOLE 20 MG TABLET,DELAYED RELEASE 5. Screening for prostate cancer - ICD9: V76.44, ICD10: Z12.5 The meaning of a false positive PSA and false negative PSA has been discussed, and the patient indicates their understanding of the limitations of this screening test. - PSA/PROSTSPECAG DIAG 6. Encounter for hepatitis C screening test for low risk patient - ICD9: V73.89, ICD10: Z11.59 Patient indicated understanding and willingness to follow recommendations. - HEP C AB IA W/CONF SCRN 7. Left shoulder pain, unspecified chronicity - ICD9: 719.41, ICD10: M25.512 Per orthopedics. Bruno Giles MD CNOV Observed: 02/19/2018 Status: COMPLETED Source: [facility] 3:00 PM [facility] Office Visit (INTMWS) JAMESGOOD CMETAANH ([id number]) 1960 M Date Time Provider Department 02/19/18 3:00 PM BRUNO GILES INTWilliWS During your visit today, we recorded the following information about you: Temperature Pulse Respiration Blood pressure 98.5 degrees 75/minute 16/minute 134/86 Weight Height 75.8 kg 1.651 m Bruno Giles MD 02/19/2018 11:28 PM Signed This note was created using [employer]. Subjective Patient presents with: Establish Care HPI: Anh James Flower was here with his son to establish care. He spoke only Palauan, and agreed to have his son translate, as translation service was not set up. He was offered another appointment to set this up, but he declined. I had some rudimentary medical Palauan skills with which we communicated as well. He mentioned epigastric pain, radiating up the sternum off and on for 3 weeks, unrelated to physical exertion, and relieved by Nexium over the counter. He also mentioned a day of painless hematuria 3 weeks ago. His hypertension and hyperlipidemia were controlled. He was seeing orthopedics for left shoulder tendinopathy. PAST MEDICAL HISTORY Diagnosis Date - Essential hypertension - Hyperlipidemia PAST SURGICAL HISTORY Procedure Laterality Date - COLONOSCOPY 2012 ?? - HEMORRHOIDAL 2016 FAMILY HISTORY Problem Relation Age of Onset - Diabetes Mother - Hypertension Father - Cancer Father - Cancer Sister GI Social History Marital status: Spouse name: Years of education: Number of children: 6 Occupational History Occupation Employer Comment laborer hoisting Social History Main Topics Smoking status: Never Smoker Smokeless status: Never Used Alcohol use: No Drug use: No Review of Systems Constitutional: Negative. HENT: Negative. Eyes: Negative. Respiratory: Negative. Cardiovascular: Positive for chest pain. Negative for palpitations and leg swelling. Gastrointestinal: Positive for abdominal pain. Negative for blood in stool, constipation, diarrhea, nausea and vomiting. Genitourinary: Negative. Musculoskeletal: Positive for arthralgias. Skin: Negative. Neurological: Negative. Objective BP 134/86 Pulse 75 Temp 36.9 ?C (98.5 ?F) (Tympanic) Resp 16 Ht 165.1 cm (5' 5ANDquot;) Wt 75.8 kg (167 lb) BMI 27.79 kg/m2 Physical Exam Constitutional: He appears well-nourished. HENT: Head: Normocephalic and atraumatic. Nose: Nose normal. Mouth/Throat: Oropharynx is clear and moist. Eyes: Conjunctivae and EOM are normal. Pupils are equal, round, and reactive to light. Neck: Neck supple. No tracheal deviation present. No thyromegaly present. Cardiovascular: Regular rhythm, normal heart sounds and intact distal pulses. Exam reveals no gallop. No murmur heard. Pulmonary/Chest: Effort normal and breath sounds normal. Abdominal: Soft. Bowel sounds are normal. He exhibits no mass. There is no tenderness. Musculoskeletal: Normal range of motion. He exhibits no edema, tenderness or deformity. Lymphadenopathy: He has no cervical adenopathy. Neurological: He is alert. He exhibits normal muscle tone. Coordination normal. Skin: Skin is warm and dry. EKG RESULTS: normal EKG, normal sinus rhythm Assessment and Plan 1. Essential hypertension - ICD9: 401.9, ICD10: I10 (primary diagnosis) - good control - Continue current medication(s) - Reviewed risks of HTN and principles of treatment - LISINOPRIL 20 MG TABLET - HYDROCHLOROTHIAZIDE 12.5 MG CAPSULE - ECG COMPLETE W INTERPRETATION - CBC + DIFF 2. Other hyperlipidemia - ICD9: 272.4, ICD10: E78.4 - to be determined upon return of lab results - Continue current medication. - PRAVASTATIN 40 MG TABLET - COMP METABOLIC PANEL 3. Hematuria, unspecified type - ICD9: 599.70, ICD10: R31.9 - Further testing if abnormal. - URINALYSIS WITH MICROSCOPIC 4. Gastroesophageal reflux disease, esophagitis presence not specified - ICD9: 530.81, ICD10: K21.9 Discussed medication dosage, usage, goals of therapy, and side effects. - PANTOPRAZOLE 20 MG TABLET,DELAYED RELEASE 5. Screening for prostate cancer - ICD9: V76.44, ICD10: Z12.5 The meaning of a false positive PSA and false negative PSA has been discussed, and the patient indicates their understanding of the limitations of this screening test. - PSA/PROSTSPECAG DIAG 6. Encounter for hepatitis C screening test for low risk patient - ICD9: V73.89, ICD10: Z11.59 Patient indicated understanding and willingness to follow recommendations. - HEP C AB IA W/CONF SCRN 7. Left shoulder pain, unspecified chronicity - ICD9: 719.41, ICD10: M25.512 Per orthopedics. Bruno Giles MD Referring Provider: SELF [200] Allergies As of Date: 02/19/2018 (No Known Allergies) Date Reviewed: 02/19/2018 Reviewed by: Barb Ferrer Cma - Fully Assessed Reason for Visit: Establish Care [42] Primary Visit Diagnosis:Essential hypertension [I10] Other Visit Diagnoses:Other hyperlipidemia [E78.4] Hematuria, unspecified type [R31.9] Gastroesophageal reflux disease, esophagitis presence not specified [K21.9] Screening for prostate cancer [Z12.5] Encounter for hepatitis C screening test for low risk patient [Z11.59] Left shoulder pain, unspecified chronicity [M25.512] Order(s):lisinopril (ZESTRIL, PRINIVIL) 20 mg tabletTake 1 tablet by mouth once daily.Disp: 30 tabletRfl: 5 pravastatin (PRAVACHOL) 40 mg tabletTake 1 tablet by mouth daily at bedtime.Disp: 30 tabletRfl: 5 Hydrochlorothiazide 12.5 mg capsuleTake 1 capsule by mouth once daily.Disp: 30 capsuleRfl: [address] (PROTONIX) 20 mg tabletTake 1 tablet by mouth daily before breakfast. Take on empty stomach, 1/2 hr before meal.Disp: 30 tabletRfl: 5 URINALYSIS WITH MICROSCOPIC [SQUAWMIC] Order #: [id number] ECG COMPLETE W INTERPRETATION [ECG01] Order #: [id number] FUTURE CBC + DIFF [SQCBCDIF] Order #: [id number] FUTURE COMP METABOLIC PANEL [SQCMP] Order #: [id number] FUTURE PSA/PROSTSPECAG DIAG [SQPSA] Order #: [id number] FUTURE HEP C AB IA W/CONF SCRN [YXLLXS9P] Order #: [id number] FUTURE Prescriptions as of 02/19/2018 Sig: LISINOPRIL 20 MG TABLET Take 1 tablet by mouth once d* PRAVASTATIN 40 MG TABLET Take 1 tablet by mouth daily * HYDROCHLOROTHIAZIDE 12.5 MG C* Take 1 capsule by mouth once * MELOXICAM 15 MG TABLET Take 1 tablet by mouth once d* TYLENOL ORAL Take 1,000 mg by mouth twice * PANTOPRAZOLE 20 MG TABLET,DEL* Take 1 tablet by mouth daily * Problem List As Of Date 02/19/2018 Noted Resolved Hematuria [R31.9] INVALID FOR* Right flank pain [R10.9] INVALID FOR*02/19/2018 Essential hypertension [I10] Other hyperlipidemia [E78.4] Left shoulder pain [M25.512] INVALID FOR* Prescriptions ordered this encounter Disp Refills Start End LISINOPRIL 20 MG TABLET 30 t* 5 02/19/2018 Route: ORAL Sig: Take 1 tablet by mouth once daily. PRAVASTATIN 40 MG TABLET 30 t* 5 02/19/2018 Route: ORAL Sig: Take 1 tablet by mouth daily at bedtime. HYDROCHLOROTHIAZIDE 12.5 MG CAPSULE 30 c* 5 02/19/2018 Route: ORAL Sig: Take 1 capsule by mouth once daily. PANTOPRAZOLE 20 MG TABLET,DELAYED RE* 30 t* 5 02/19/2018 Route: ORAL Sig: Take 1 tablet by mouth daily before breakfast. Take on empty stomach, 1/2 hr before meal. Medications Discontinued During This Encounter lisinopril (ZESTRIL, PRINIVIL) 20 mg* 30 t* 1 01/27/2018 02/19/2018 Route: ORAL Sig: Take 1 tablet by mouth once daily. Currently out of medication Disc: Reason for discontinue is not on file. pravastatin (PRAVACHOL) 40 mg tablet 30 t* 1 01/27/2018 02/19/2018 Route: ORAL Sig: Take 1 tablet by mouth daily at bedtime. Disc: Reason for discontinue is not on file. Hydrochlorothiazide 12.5 mg capsule 30 c* 1 01/27/2018 02/19/2018 Route: ORAL Sig: Take 1 capsule by mouth once daily. Disc: Reason for discontinue is not on file. Disposition: Return in about 4 months (around 06/21/2018). Follow-up and Disposition History Recorded Encounter Status:Closed by BRUNO GILES MD on 02/19/18 PROGRESS Observed: 02/17/2018 Status: COMPLETED Source: [facility] 10:42 AM [facility] REPOSITORY O ID: [id number] Author: Radha Smith (Pa) Service: (none) Author Type: Physician [employer] Faculty Member Type: Progress Notes Filed: 02/17/2018 11:25 AM Note Text: Radha Smith PA-C Department of Orthopaedics Orthopaedics [address] [facility] [address] Dept: [phone] Dept February 17, 2018 CHIEF COMPLAINT: Established Patient (MRI results left shoulder ) Mr. Anh Flower is a 57 year old male. Patient presents with left shoulder pain after an injury at work on February 19, 2017. ?Patient was lifting up a large garage door at work when he felt a pop in his left shoulder. He has has diffuse 7/10 left shoulder pain for the past year. Pain is worse with any type of overhead movement or activity. He was previously unable to take an oral anti-inflammatory as his blood pressure with poorly controlled. Patient has been on blood pressure medication for the past month and his blood pressure is normal today.?He has been doing at home physical therapy exercises for the past month without improvement. Patient also had a left shoulder subacromial corticosteroid injection which he also did not find beneficial.?He has been off work for the past 3 weeks as he is unable to do any lifting secondary to shoulder pain. Patient is right-hand Patient's primary language is Palauan, he declined a phone ui designer and was accompanied by his son Prabhjot who acted as his ui designer. ASSESSMENT: M25.512 Acute pain of left shoulder (primary encounter diagnosis) M75.42 Impingement syndrome of left shoulder PLAN: Patient's x-ray in November showed some changes that were consistent with rotator cuff tear however his MRI did not show any tears of the rotator cuff. Patient does have some tendinitis of the supraspinatus, infraspinatus and biceps tendon. MRI also showed degenerative changes at the AC joint. Patient has gain better control of his blood pressure, I think it would be reasonable to try an oral anti-inflammatory. Patient did not benefit from physical therapy exercises he also did not get any benefit from subacromial corticosteroid steroid injection. We discussed that it would be reasonable to repeat subacromial injection or possible bicep tendon injection if he does not find relief with the oral anti-inflammatory. Follow up in 3 weeks. We will extend his light duty for another 3 weeks. Mr. Anh Flower was advised as to contrast therapies and/or to take analgesics/anti-inflammatories as needed and all contraindications were reviewed. OBJECTIVE: Mr. Anh Flower is a pleasant 57 year old in no apparent distress. Gen:BP 132/80 nl development, obese, no deformities ENT: Normocephalic, normal hearing, moist mucosa CV: Pulses:Radial= 2+ and symmetric, capillary refill < 2 secs, no peripheral edema/varicosities Skin: no rash, bruising or lesions. Good turgor. Psych: cooperative and appropriate, alert and oriented x 3, good mood and affect. Musculoskeletal: Supple range of motion of the cervical spine without pain. ?Spurling signs are negative. No atrophy of the deltoid and shoulder musculature. Left?shoulder is nontender to palpation over the SC joint, clavicle and AC joint. ?No?tenderness to palpation over the posterior shoulder or?anterior lateral corner of the shoulder and greater tuberosity. ?No pain on palpation?at the bicipital groove and coracoid. ?Active range of motion is 90??of forward elevation, 45??external rotation, and internal rotation to the low lumbar spine. ??Passive range of motion is 150?, 45?, respectively. ?No laxity with anterior and posterior stress. ?Positive?Neer and positive?Thompson impingement signs. ?4/5 strength with supraspinatus, 5/5 strength with infraspinatus and subscapularis. ?Sensation is intact in the axillary, radial, median and ulnar nerve distribution ? Imaging: IMPRESSION: Rotator cuff tendinopathy without full-thickness tear. ? Tendinopathy also involving the proximal aspect of the long head of the biceps tendon without high-grade tear. 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: AZEEM ? Transcribe Date/Time: Feb 09 2018 10:41A Dictated by : ANI OZUNA MD This examination was interpreted and the report reviewed and electronically signed by: ANI OZUNA MD on Feb 09 2018 10:48AM ?EST Results-Findings * * *Final Report* * * DATE OF EXAM: Feb 09 2018 10:32AM ? [facility] ? 0239 ?- ?MRI SHOULDER WO IVCON LT ?/ PROCEDURE REASON: Unspecified rotator cuff tear or rupture of left shoulder, not specified as trau ?? ? * * * * Physician Interpretation * * * * ?HISTORY: ? ? . ?Unspecified rotator cuff tear or rupture of left shoulder, not specified as traumatic ? . TECHNIQUE: MRI SHOULDER WO IVCON LT ?? Laterality: ?? Number of different views (projections): Multiplanar, multisequence examination of the left shoulder special attention to the rotator cuff COMPARISON: Recent radiographs December 14 RESULT: There are degenerative changes noted in the AC joint with significant hypertrophy. ?The glenohumeral articulation is well maintained. No fracture or erosion. There is some signal abnormality in the supraspinatus, infraspinatus and subscapularis tendons consistent with tendinopathy. ?No full-thickness tear or tendon retraction identified. ?Some reactive signal changes at the greater tuberosity. ?No fatty atrophy in the rotator cuff musculature. Signal changes involving the intra-articular aspect of the long head of the biceps tendon is anatomically located. Degenerative type signal changes in the upper glenoid labrum. Supporting Subjective Information Below: Past Surgical History: PAST SURGICAL HISTORY Procedure Laterality Date - HEMORRHOIDAL Medications: Current Outpatient Prescriptions: ACETAMINOPHEN (TYLENOL ORAL) Take 1,000 mg by mouth twice daily. lisinopril (ZESTRIL, PRINIVIL) 20 mg tablet Take 1 tablet by mouth once daily. Currently out of medication pravastatin (PRAVACHOL) 40 mg tablet Take 1 tablet by mouth daily at bedtime. Hydrochlorothiazide 12.5 mg capsule Take 1 capsule by mouth once daily. meloxicam (MOBIC) 15 mg tablet Take 1 tablet by mouth once daily. No current facility-administered medications for this visit. Allergies: Review of patient's allergies indicates no known allergies. ROS: General (negative for fatigue, malaise, weight loss/gain) HEENT (negative for headache, earache, recent vision changes, sinus pain, sore throat) Respiratory (no recent shortness of breath, hemoptysis) CV (negative for chest tightness, palpitations) Musculoskeletal (see HPI) Psych (no depression, anxiety) This note was partially generated using [employer] voice recognition system, and there may be some incorrect words, spellings, and punctuation that were not noted in checking the note before saving. Radha Smith PA-C PROGRESS Observed: 02/17/2018 Status: COMPLETED Source: [facility] 9:05 AM [facility] REPOSITORY HNO ID: [id number] Author: Polly Arango Ma Service: (none) Author Type: (none) Type: Progress Notes Filed: 02/17/2018 11:25 AM Note Text: AMB ROOMING INTAKE FLOWSHEET DATA Risk Screening Do you have concerns about personal safety or safety in the home?: No Pain Pain Score: 7/10 Pain Location: Shoulder-Left Description: Burning Duration Amount of Time: (ongoing) Frequency: Intermittent Intervention: Medication Patient here today for MRI results of left shoulder. He is accompanied by kp Rick. Patient declines phone specification writer. CNOV Observed: 02/17/2018 Status: COMPLETED Source: [facility] 9:00 AM [facility] REPOSITORY Office Visit (ORTHWS) ANH WALLIS ([id number]) 1960 M Date Time Provider Department 02/17/18 9:00 AM RADHA SMITH) [place] During your visit today, we recorded the following information about you: Blood pressure 132/80 Polly Arango Ma 02/17/2018 11:25 AM Signed AMB ROOMING INTAKE FLOWSHEET DATA Risk Screening Do you have concerns about personal safety or safety in the home?: No Pain Pain Score: 7/10 Pain Location: Shoulder-Left Description: Burning Duration Amount of Time: (ongoing) Frequency: Intermittent Intervention: Medication Patient here today for MRI results of left shoulder. He is accompanied by kp Rick. Patient declines phone specification writer. Radha Smith PA-C 02/17/2018 11:25 AM Signed Radha Smith PA-C Department of Orthopaedics Orthopaedics [address] [facility] [address] Dept: [phone] Dept February 17, 2018 CHIEF COMPLAINT: Established Patient (MRI results left shoulder ) Mr. Anh Flower is a 57 year old male. Patient presents with left shoulder pain after an injury at work on February 19, 2017. ?Patient was lifting up a large garage door at work when he felt a pop in his left shoulder. He has has diffuse 7/10 left shoulder pain for the past year. Pain is worse with any type of overhead movement or activity. He was previously unable to take an oral anti-inflammatory as his blood pressure with poorly controlled. Patient has been on blood pressure medication for the past month and his blood pressure is normal today.?He has been doing at home physical therapy exercises for the past month without improvement. Patient also had a left shoulder subacromial corticosteroid injection which he also did not find beneficial.?He has been off work for the past 3 weeks as he is unable to do any lifting secondary to shoulder pain. Patient is right-hand Patient's primary language is Palauan, he declined a phone ui designer and was accompanied by his son Prabhjot who acted as his ui designer. ASSESSMENT: M25.512 Acute pain of left shoulder (primary encounter diagnosis) M75.42 Impingement syndrome of left shoulder PLAN: Patient's x-ray in November showed some changes that were consistent with rotator cuff tear however his MRI did not show any tears of the rotator cuff. Patient does have some tendinitis of the supraspinatus, infraspinatus and biceps tendon. MRI also showed degenerative changes at the AC joint. Patient has gain better control of his blood pressure, I think it would be reasonable to try an oral anti-inflammatory. Patient did not benefit from physical therapy exercises he also did not get any benefit from subacromial corticosteroid steroid injection. We discussed that it would be reasonable to repeat subacromial injection or possible bicep tendon injection if he does not find relief with the oral anti-inflammatory. Follow up in 3 weeks. We will extend his light duty for another 3 weeks. Mr. Anh Flower was advised as to contrast therapies and/or to take analgesics/anti-inflammatories as needed and all contraindications were reviewed. OBJECTIVE: Mr. Anh Flower is a pleasant 57 year old in no apparent distress. Gen:BP 132/80 nl development, obese, no deformities ENT: Normocephalic, normal hearing, moist mucosa CV: Pulses:Radial= 2+ and symmetric, capillary refill ANDlt; 2 secs, no peripheral edema/varicosities Skin: no rash, bruising or lesions. Good turgor. Psych: cooperative and appropriate, alert and oriented x 3, good mood and affect. Musculoskeletal: Supple range of motion of the cervical spine without pain. ?Spurling signs are negative. No atrophy of the deltoid and shoulder musculature. Left?shoulder is nontender to palpation over the SC joint, clavicle and AC joint. ?No?tenderness to palpation over the posterior shoulder or?anterior lateral corner of the shoulder and greater tuberosity. ?No pain on palpation?at the bicipital groove and coracoid. ?Active range of motion is 90??of forward elevation, 45??external rotation, and internal rotation to the low lumbar spine. ??Passive range of motion is 150?, 45?, respectively. ?No laxity with anterior and posterior stress. ?Positive?Neer and positive?Thompson impingement signs. ?4/5 strength with supraspinatus, 5/5 strength with infraspinatus and subscapularis. ?Sensation is intact in the axillary, radial, median and ulnar nerve distribution ? Imaging: IMPRESSION: Rotator cuff tendinopathy without full-thickness tear. ? Tendinopathy also involving the proximal aspect of the long head of the biceps tendon without high-grade tear. 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: AZEEM ? Transcribe Date/Time: Feb 09 2018 10:41A Dictated by : ANI OZUNA MD This examination was interpreted and the report reviewed and electronically signed by: ANI OZUNA MD on Feb 09 2018 10:48AM ?EST Results-Findings * * *Final Report* * * DATE OF EXAM: Feb 09 2018 10:32AM ? [facility] ? 0239 ?- ?MRI SHOULDER WO IVCON LT ?/ PROCEDURE REASON: Unspecified rotator cuff tear or rupture of left shoulder, not specified as trau ?? ? * * * * Physician Interpretation * * * * ?HISTORY: ? ? . ?Unspecified rotator cuff tear or rupture of left shoulder, not specified as traumatic ? . TECHNIQUE: MRI SHOULDER WO IVCON LT ?? Laterality: ?? Number of different views (projections): Multiplanar, multisequence examination of the left shoulder special attention to the rotator cuff COMPARISON: Recent radiographs December 14 RESULT: There are degenerative changes noted in the AC joint with significant hypertrophy. ?The glenohumeral articulation is well maintained. No fracture or erosion. There is some signal abnormality in the supraspinatus, infraspinatus and subscapularis tendons consistent with tendinopathy. ?No full-thickness tear or tendon retraction identified. ?Some reactive signal changes at the greater tuberosity. ?No fatty atrophy in the rotator cuff musculature. Signal changes involving the intra-articular aspect of the long head of the biceps tendon is anatomically located. Degenerative type signal changes in the upper glenoid labrum. Supporting Subjective Information Below: Past Surgical History: PAST SURGICAL HISTORY Procedure Laterality Date - HEMORRHOIDAL Medications: Current Outpatient Prescriptions: ACETAMINOPHEN (TYLENOL ORAL) Take 1,000 mg by mouth twice daily. lisinopril (ZESTRIL, PRINIVIL) 20 mg tablet Take 1 tablet by mouth once daily. Currently out of medication pravastatin (PRAVACHOL) 40 mg tablet Take 1 tablet by mouth daily at bedtime. Hydrochlorothiazide 12.5 mg capsule Take 1 capsule by mouth once daily. meloxicam (MOBIC) 15 mg tablet Take 1 tablet by mouth once daily. No current facility-administered medications for this visit. Allergies: Review of patient's allergies indicates no known allergies. ROS: General (negative for fatigue, malaise, weight loss/gain) HEENT (negative for headache, earache, recent vision changes, sinus pain, sore throat) Respiratory (no recent shortness of breath, hemoptysis) CV (negative for chest tightness, palpitations) Musculoskeletal (see HPI) Psych (no depression, anxiety) This note was partially generated using [employer] voice recognition system, and there may be some incorrect words, spellings, and punctuation that were not noted in checking the note before saving. Radha Smith PA-C Referring Provider: RADHA SMITH (KARINA) [[id number]] Allergies As of Date: 02/17/2018 (No Known Allergies) Date Reviewed: 02/17/2018 Reviewed by: Polly Arango Ma - Fully Assessed Reason for Visit: Established Patient [175] Cmt: MRI results left shoulder Primary Visit Diagnosis:Acute pain of left shoulder [M25.512] Other Visit Diagnosis:Impingement syndrome of left shoulder [M75.42] Order(s):meloxicam (MOBIC) 15 mg tabletTake 1 tablet by mouth once daily.Disp: 30 tabletRfl: 2 Prescriptions as of 02/17/2018 Sig: TYLENOL ORAL Take 1,000 mg by mouth twice * LISINOPRIL 20 MG TABLET Take 1 tablet by mouth once d* PRAVASTATIN 40 MG TABLET Take 1 tablet by mouth daily * HYDROCHLOROTHIAZIDE 12.5 MG C* Take 1 capsule by mouth once * MELOXICAM 15 MG TABLET Take 1 tablet by mouth once d* Problem List As Of Date 02/17/2018 Noted Resolved Hematuria [R31.9] INVALID FOR* Right flank pain [R10.9] INVALID FOR* Essential hypertension [I10] Hyperlipidemia [E78.5] Prescriptions ordered this encounter Disp Refills Start End MELOXICAM 15 MG TABLET 30 t* 2 02/17/2018 Route: ORAL Sig: Take 1 tablet by mouth once daily. Encounter Status:Closed by RADHA SMITH PA-C on 02/17/18 PROGRESS Observed: 02/09/2018 Status: COMPLETED Source: [place] 10:34 AM [facility] REPOSITORY HNO ID: [id number] Author: Lola Webb Service: (none) Author Type: (none) Type: Progress Notes Filed: 02/09/2018 10:34 AM Note Text: Radiology Service Progress Note PATIENT NAME: Anh Flower DATE OF SERVICE: February 09, 2018 TIME: 10:34 AM PATIENT IDENTITY VERIFICATION COMPLETED USING TWO (2) METHODS: Patient confirmed name verbally and Date of . PATIENT GENDER DATA: Male PATIENT RELEVANT IMPLANT DATA REVIEWED: Yes RADIOLOGY DEPARTMENT: MR; Exam(s) Completed: Upper MSK: Shoulder, left PERIPHERAL IV DATA: Not applicable SIGNED BY: Lola Webb February 09, 2018 10:34 AM MRI SHOULDER WO IVCON Observed: 02/09/2018 Status: F Source: [facility] 10:32 AM [facility] REPOSITORY * * *Final Report* * * DATE OF EXAM: Feb 09 2018 10:32AM [facility] 0239 - MRI SHOULDER WO IVCON LT / PROCEDURE REASON: Unspecified rotator cuff tear or rupture of left shoulder, not specified as trau * * * * Physician Interpretation * * * * HISTORY: . Unspecified rotator cuff tear or rupture of left shoulder, not specified as traumatic . TECHNIQUE: MRI SHOULDER WO IVCON LT Laterality: Number of different views (projections): Multiplanar, multisequence examination of the left shoulder special attention to the rotator cuff COMPARISON: Recent radiographs December 14 RESULT: There are degenerative changes noted in the AC joint with significant hypertrophy. The glenohumeral articulation is well maintained. No fracture or erosion. There is some signal abnormality in the supraspinatus, infraspinatus and subscapularis tendons consistent with tendinopathy. No full-thickness tear or tendon retraction identified. Some reactive signal changes at the greater tuberosity. No fatty atrophy in the rotator cuff musculature. Signal changes involving the intra-articular aspect of the long head of the biceps tendon is anatomically located. Degenerative type signal changes in the upper glenoid labrum. IMPRESSION: Rotator cuff tendinopathy without full-thickness tear. Tendinopathy also involving the proximal aspect of the long head of the biceps tendon without high-grade tear. 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[facility] Transcribe Date/Time: Feb 09 2018 10:41A Dictated by : ANI OZUNA MD This examination was interpreted and the report reviewed and electronically signed by: ANI OZUNA MD on Feb 09 2018 10:48AM EST [id number] PROGRESS Observed: 01/27/2018 Status: COMPLETED Source: [place] 2:09 PM [facility] REPOSITORY HNO ID: [id number] Author: Gina (Chavo) Older Service: (none) Author Type: Nurse Practitioner Type: Progress Notes Filed: 01/27/2018 2:40 PM Note Text: CC Patient presents with: Refill Request: Requesting refill on BP meds HPI Anh Flower is a 57 year old male who presents to the office for blood pressure. His visit today is for evaluation. Patient recently moved to this area. Ran out of BP medications a few months ago and was unable to get refills. Will be establishing care with PCP here. Home BP's: does not check Symptoms referable to elevated blood pressure (headache, chest pain, palpitations, dyspnea, peripheral edema, fatigue, blurred vision): No BP medications: Patient denies any side effects of his medication(s) and is compliant with their regimen. Last 4 Encounter BP Readings: Date: BP: 01/27/2018 140/88 01/27/2018 154/104[auto[ 01/06/2018 166/99 12/30/2017 148/90 Last 3 Encounter Wt Readings: Date: Wt: 01/27/2018 73 kg (161 lb) 01/06/2018 75.1 kg (165 lb 9.6 oz) 12/14/2017 74.8 kg (165 lb) REVIEW OF SYSTEMS See HPI PAST MEDICAL HISTORY Diagnosis Date - Essential hypertension PAST SURGICAL HISTORY Procedure Laterality Date - HEMORRHOIDAL ALLERGIES Review of patient's allergies indicates no known allergies. MEDICATIONS ACETAMINOPHEN (TYLENOL ORAL) Take 1,000 mg by mouth twice daily. lisinopril 20 mg tablet Take 20 mg by mouth once daily. Currently out of medication FAMILY HISTORY Problem Relation Age of Onset - Diabetes Mother Social History Substance Use Topics - Smoking status: Never Smoker - Smokeless tobacco: Never Used - Alcohol use No PHYSICAL EXAM BP 140/88 Pulse 84 Temp 36.3 ?C (97.4 ?F) (Tympanic) Resp 16 Wt 73 kg (161 lb) BMI 26.79 kg/m2 General Appearance: well appearing, in no acute distress, alert Lungs: Lungs clear to auscultation. No wheezing, rhonchi, rales Heart: RRR without murmur, gallop, or rubs. No ectopy ASSESSMENT/PLAN: 1. Essential hypertension - ICD9: 401.9, ICD10: I10 (primary diagnosis) - suboptimal control - Continue current medication(s), refilled - Recommended regular aerobic exercise. Discussed diet with plenty fruits, vegetables, lean meats and healthy fats/oils. Avoid processed foods, trans fats, vegetable oils and simple sugars. Watch portion sizes. - Recommend home blood pressure monitoring, to bring results in on next visit - Recheck in 3 weeks, sooner should new symptoms or problems arise. - Goal of BP <140/90 2. Hyperlipidemia, unspecified hyperlipidemia type - ICD9: 272.4, ICD10: E78.5 - to be determined upon return of lab results - Continue current medication, Pravachol refilled No labs today. Patient will stop in medical records today to request chart from previous PCP Prescription instructions reviewed with patient as applicable. Potential red flag symptoms discussed with the patient. Reviewed appropriate action plan to take if red flag symptoms occur. Patient agreeable to treatment plan Gina Vaughn CNP CNOV Observed: 01/27/2018 Status: COMPLETED Source: [place] 2:00 PM [facility] REPOSITORY Office Visit (INTMWS) ANH WALLIS ([id number]) 1960 M Date Time Provider Department 01/27/18 2:00 PM GINA VAUGHN (CHAVO) INTMWS During your visit today, we recorded the following information about you: Temperature Pulse Respiration Blood pressure 97.4 degrees 84/minute 16/minute 140/88 Weight 73 kg Gina Vaughn CNP 01/27/2018 2:40 PM Signed CC Patient presents with: Refill Request: Requesting refill on BP meds HPI Anh Flower is a 57 year old male who presents to the office for blood pressure. His visit today is for evaluation. Patient recently moved to this area. Ran out of BP medications a few months ago and was unable to get refills. Will be establishing care with PCP here. Home BP's: does not check Symptoms referable to elevated blood pressure (headache, chest pain, palpitations, dyspnea, peripheral edema, fatigue, blurred vision): No BP medications: Patient denies any side effects of his medication(s) and is compliant with their regimen. Last 4 Encounter BP Readings: Date: BP: 01/27/2018 140/88 01/27/2018 154/104[auto[ 01/06/2018 166/99 12/30/2017 148/90 Last 3 Encounter Wt Readings: Date: Wt: 01/27/2018 73 kg (161 lb) 01/06/2018 75.1 kg (165 lb 9.6 oz) 12/14/2017 74.8 kg (165 lb) REVIEW OF SYSTEMS See HPI PAST MEDICAL HISTORY Diagnosis Date - Essential hypertension PAST SURGICAL HISTORY Procedure Laterality Date - HEMORRHOIDAL ALLERGIES Review of patient's allergies indicates no known allergies. MEDICATIONS ACETAMINOPHEN (TYLENOL ORAL) Take 1,000 mg by mouth twice daily. lisinopril 20 mg tablet Take 20 mg by mouth once daily. Currently out of medication FAMILY HISTORY Problem Relation Age of Onset - Diabetes Mother Social History Substance Use Topics - Smoking status: Never Smoker - Smokeless tobacco: Never Used - Alcohol use No PHYSICAL EXAM BP 140/88 Pulse 84 Temp 36.3 ?C (97.4 ?F) (Tympanic) Resp 16 Wt 73 kg (161 lb) BMI 26.79 kg/m2 General Appearance: well appearing, in no acute distress, alert Lungs: Lungs clear to auscultation. No wheezing, rhonchi, rales Heart: RRR without murmur, gallop, or rubs. No ectopy ASSESSMENT/PLAN: 1. Essential hypertension - ICD9: 401.9, ICD10: I10 (primary diagnosis) - suboptimal control - Continue current medication(s), refilled - Recommended regular aerobic exercise. Discussed diet with plenty fruits, vegetables, lean meats and healthy fats/oils. Avoid processed foods, trans fats, vegetable oils and simple sugars. Watch portion sizes. - Recommend home blood pressure monitoring, to bring results in on next visit - Recheck in 3 weeks, sooner should new symptoms or problems arise. - Goal of BP ANDlt;140/90 2. Hyperlipidemia, unspecified hyperlipidemia type - ICD9: 272.4, ICD10: E78.5 - to be determined upon return of lab results - Continue current medication, Pravachol refilled No labs today. Patient will stop in medical records today to request chart from previous PCP Prescription instructions reviewed with patient as applicable. Potential red flag symptoms discussed with the patient. Reviewed appropriate action plan to take if red flag symptoms occur. Patient agreeable to treatment plan Gina Vaughn CNP Referring Provider: RADHA SMITH) [[id number]] Allergies As of Date: 01/27/2018 (No Known Allergies) Date Reviewed: 01/27/2018 Reviewed by: Barb Ferrer Cma - Fully Assessed Reason for Visit: Refill Request [94] Cmt: Requesting refill on BP meds Primary Visit Diagnosis:Essential hypertension [I10] Other Visit Diagnosis:Hyperlipidemia, unspecified hyperlipidemia type [E78.5] Order(s):lisinopril (ZESTRIL, PRINIVIL) 20 mg tabletTake 1 tablet by mouth once daily. Currently out of medicationDisp: 30 tabletRfl: 1 pravastatin (PRAVACHOL) 40 mg tabletTake 1 tablet by mouth daily at bedtime.Disp: 30 tabletRfl: 1 Hydrochlorothiazide 12.5 mg capsuleTake 1 capsule by mouth once daily.Disp: 30 capsuleRfl: 1 Prescriptions as of 01/27/2018 Sig: TYLENOL ORAL Take 1,000 mg by mouth twice * LISINOPRIL 20 MG TABLET Take 1 tablet by mouth once d* PRAVASTATIN 40 MG TABLET Take 1 tablet by mouth daily * HYDROCHLOROTHIAZIDE 12.5 MG C* Take 1 capsule by mouth once * Problem List As Of Date 01/27/2018 Noted Resolved Hematuria [R31.9] INVALID FOR* Right flank pain [R10.9] INVALID FOR* Essential hypertension [I10] Hyperlipidemia [E78.5] Prescriptions ordered this encounter Disp Refills Start End LISINOPRIL 20 MG TABLET 30 t* 1 01/27/2018 Route: ORAL Sig: Take 1 tablet by mouth once daily. Currently out of medication PRAVASTATIN 40 MG TABLET 30 t* 1 01/27/2018 Route: ORAL Sig: Take 1 tablet by mouth daily at bedtime. HYDROCHLOROTHIAZIDE 12.5 MG CAPSULE 30 c* 1 01/27/2018 Route: ORAL Sig: Take 1 capsule by mouth once daily. Medications Discontinued During This Encounter lisinopril 20 mg tablet 01/27/2018 Class: Historical Med Route: ORAL Sig: Take 20 mg by mouth once daily. Currently out of medication Disc: Reason for discontinue is not on file. Encounter Status:Closed by GINA VAUGHN CNP on 01/27/18 PROGRESS Observed: 01/27/2018 Status: COMPLETED Source: [facility] 10:13 AM [facility] REPOSITORY HNO ID: [id number] Author: Radha Smith (Pa) Service: (none) Author Type: Physician [employer] Faculty Member Type: Progress Notes Filed: 01/27/2018 11:09 AM Note Text: Radha Smith PA-C Department of Orthopaedics [facility] [address] [place] [address] Dept: [phone] Dept January 27, 2018 CHIEF COMPLAINT: Recheck (3 weeks post visit left shoulder pain) Mr. Anh Flower is a 57 year old male Patient presents with left shoulder pain after an injury at work on February 19, 2017. Patient was lifting up a large garage door at work when he felt a pop in his left shoulder, patient is an employee at [employer] He tells me that he informed his employee of his injury and was receiving physical therapy treatments at work about one time a week. Therapy treatments consisted of icing and massage. Patient states that he was shoveling his driveway shortly after his work injury and exacerbated the left shoulder pain. He tells me his employer will no longer covering the injury under worker's compensation because he had an additional injury while shoveling snow. Patient presents today with a 1 year history of left shoulder pain that is worse with any type of overhead movement or activity. Pain is an anterior 7 out of 10 sharpness. patient has been doing at home physical therapy exercises for the past month without improvement. Patient also had a left shoulder subacromial corticosteroid injection which he also did not find beneficial. Shoulder pain is causing him continued difficulties at work as he is unable to lift, pain is interfering with his ability to sleep. Patient has been taking Tylenol as needed for pain. Patient is right-hand dominant. Patient's primary language is Palauan. History was obtained with help from the ui designer parul, Tyrone [id number]. ASSESSMENT: M75.102 Tear of left rotator cuff, unspecified tear extent (primary encounter diagnosis) M25.512, G89.29 Chronic left shoulder pain PLAN: Patient did not benefit from physical therapy exercises he also did not get any benefit from subacromial corticosteroid steroid injection. Patient's blood pressure is still elevated today and I do not believe that anti-inflammatories would be appropriate. Patient's x-ray does show evidence of rotator cuff pathology I think at this point would be appropriate to proceed with left shoulder MRI. We will contact patient with MRI results. Mr. Anh Flower was advised as to contrast therapies and/or to take analgesics/anti-inflammatories as needed and all contraindications were reviewed. OBJECTIVE: Mr. Anh Flower is a pleasant 57 year old in no apparent distress. Gen:BP 154/104[auto[ Pulse 91 nl development, obese, no deformities ENT: Normocephalic, normal hearing, moist mucosa CV: Pulses:DP/PT= 2+ and symmetric, capillary refill < 2 secs, no peripheral edema/varicosities Skin: no rash, bruising or lesions. Good turgor. Psych: cooperative and appropriate, alert and oriented x 3, good mood and affect. Musculoskeletal: Supple range of motion of the cervical spine without pain. Spurling signs are negative. No atrophy of the deltoid and shoulder musculature. Left shoulder is nontender to palpation over the SC joint, clavicle and AC joint. No tenderness to palpation over the posterior shoulder or anterior lateral corner of the shoulder and greater tuberosity. No pain on palpation at the bicipital groove and coracoid. Active range of motion is 90? of forward elevation, 45? external rotation, and internal rotation to the low lumbar spine. Passive range of motion is 150?, 45?, respectively. No laxity with anterior and posterior stress. Positive Neer and positive Thompson impingement signs. 4/5 strength with supraspinatus, 5/5 strength with infraspinatus and subscapularis. Sensation is intact in the axillary, radial, median and ulnar nerve distribution ? Imaging: Deferred today Supporting Subjective Information Below: Past Surgical History: PAST SURGICAL HISTORY Procedure Laterality Date - HEMORRHOIDAL Medications: Current Outpatient Prescriptions: ACETAMINOPHEN (TYLENOL ORAL) Take 1,000 mg by mouth twice daily. lisinopril 20 mg tablet Take 20 mg by mouth once daily. Currently out of medication No current facility-administered medications for this visit. Allergies: Review of patient's allergies indicates no known allergies. ROS: General (negative for fatigue, malaise, weight loss/gain) HEENT (negative for headache, earache, recent vision changes, sinus pain, sore throat) Respiratory (no recent shortness of breath, hemoptysis) CV (negative for chest tightness, palpitations) Musculoskeletal (see HPI) Psych (no depression, anxiety) This note was partially generated using [employer] voice recognition system, and there may be some incorrect words, spellings, and punctuation that were not noted in checking the note before saving. Radha Smith PA-C PROGRESS Observed: 01/27/2018 Status: COMPLETED Source: [facility] 9:48 AM [facility] REPOSITORY HNO ID: [id number] Author: Angela Vega RN Service: (none) Author Type: (none) Type: Progress Notes Filed: 01/27/2018 11:09 AM Note Text: AMB ROOMING INTAKE FLOWSHEET DATA Risk Screening Do you have concerns about personal safety or safety in the home?: Yes. Provider notified (He states he does not feel safe at work because of the arm pain and garage doors are 200 lbs) Pain Pain Score: 7/10 Pain Location: Shoulder-Left Description: Sharp Duration Amount of Time: 10 Duration Units: Months Frequency: Continuous Intervention: Medication Patient presents with: Recheck: 3 weeks post visit left shoulder pain Pt. states he had no relief from injection. He has been taking Tylenol 1000 mg twice daily without relief. 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 He states he initially hurt shoulder while shoveling snow at home last March. He states pain is mostly in front of joint. He states he had therapy at work, but this did not help either. His son is with him today. Used [employer] ui designer Tyrone, #[id number]. His son accompanies him. Pt. states he went to [facility] as he ran out of lisinopril, but they would not give him refill. He has appt. to establish with Dr. Giles 02-19-18. Upon recheck still elevated. Appt. scheduled today at 2 pm with Gina Vaughn for BP. JOHN Observed: 01/27/2018 Status: COMPLETED Source: [place] 9:30 AM [facility] REPOSITORY Office Visit (JOYWS) ANH WALLIS ([id number]) 1960 M Date Time Provider Department 01/27/18 9:30 AM RADAH SMITH) [place] During your visit today, we recorded the following information about you: Pulse Blood pressure 91/minute 154/104 Angela Vega RN 01/27/2018 11:09 AM Signed AMB ROOMING INTAKE FLOWSHEET DATA Risk Screening Do you have concerns about personal safety or safety in the home?: Yes. Provider notified (He states he does not feel safe at work because of the arm pain and garage doors are 200 lbs) Pain Pain Score: 7/10 Pain Location: Shoulder-Left Description: Sharp Duration Amount of Time: 10 Duration Units: Months Frequency: Continuous Intervention: Medication Patient presents with: Recheck: 3 weeks post visit left shoulder pain Pt. states he had no relief from injection. He has been taking Tylenol 1000 mg twice daily without relief. 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 He states he initially hurt shoulder while shoveling snow at home last March. He states pain is mostly in front of joint. He states he had therapy at work, but this did not help either. His son is with him today. Used [employer] ui designer Tyrone, #[id number]. His son accompanies him. Pt. states he went to [facility] as he ran out of lisinopril, but they would not give him refill. He has appt. to establish with Dr. Giles 02-19-18. Upon recheck still elevated. Appt. scheduled today at 2 pm with Gina Vaughn for BP. Radha Smith PA-C 01/27/2018 11:09 AM Signed Radha Smith PA-C Department of Orthopaedics Orthopaedics [address] [place] [id number] Dept: [phone] Dept January 27, 2018 CHIEF COMPLAINT: Recheck (3 weeks post visit left shoulder pain) Mr. Anh Flower is a 57 year old male Patient presents with left shoulder pain after an injury at work on February 19, 2017. Patient was lifting up a large garage door at work when he felt a pop in his left shoulder, patient is an employee at [employer]. He tells me that he informed his employee of his injury and was receiving physical therapy treatments at work about one time a week. Therapy treatments consisted of icing and massage. Patient states that he was shoveling his driveway shortly after his work injury and exacerbated the left shoulder pain. He tells me his employer will no longer covering the injury under worker's compensation because he had an additional injury while shoveling snow. Patient presents today with a 1 year history of left shoulder pain that is worse with any type of overhead movement or activity. Pain is an anterior 7 out of 10 sharpness. patient has been doing at home physical therapy exercises for the past month without improvement. Patient also had a left shoulder subacromial corticosteroid injection which he also did not find beneficial. Shoulder pain is causing him continued difficulties at work as he is unable to lift, pain is interfering with his ability to sleep. Patient has been taking Tylenol as needed for pain. Patient is right-hand dominant. Patient's primary language is Palauan. History was obtained with help from the ui designer parul, Tyrone [id number]. ASSESSMENT: M75.102 Tear of left rotator cuff, unspecified tear extent (primary encounter diagnosis) M25.512, G89.29 Chronic left shoulder pain PLAN: Patient did not benefit from physical therapy exercises he also did not get any benefit from subacromial corticosteroid steroid injection. Patient's blood pressure is still elevated today and I do not believe that anti-inflammatories would be appropriate. Patient's x-ray does show evidence of rotator cuff pathology I think at this point would be appropriate to proceed with left shoulder MRI. We will contact patient with MRI results. Mr. Anh Flower was advised as to contrast therapies and/or to take analgesics/anti-inflammatories as needed and all contraindications were reviewed. OBJECTIVE: Mr. Anh Flower is a pleasant 57 year old in no apparent distress. Gen:BP 154/104[auto[ Pulse 91 nl development, obese, no deformities ENT: Normocephalic, normal hearing, moist mucosa CV: Pulses:DP/PT= 2+ and symmetric, capillary refill ANDlt; 2 secs, no peripheral edema/varicosities Skin: no rash, bruising or lesions. Good turgor. Psych: cooperative and appropriate, alert and oriented x 3, good mood and affect. Musculoskeletal: Supple range of motion of the cervical spine without pain. Spurling signs are negative. No atrophy of the deltoid and shoulder musculature. Left shoulder is nontender to palpation over the SC joint, clavicle and AC joint. No tenderness to palpation over the posterior shoulder or anterior lateral corner of the shoulder and greater tuberosity. No pain on palpation at the bicipital groove and coracoid. Active range of motion is 90? of forward elevation, 45? external rotation, and internal rotation to the low lumbar spine. Passive range of motion is 150?, 45?, respectively. No laxity with anterior and posterior stress. Positive Neer and positive Thompson impingement signs. 4/5 strength with supraspinatus, 5/5 strength with infraspinatus and subscapularis. Sensation is intact in the axillary, radial, median and ulnar nerve distribution ? Imaging: Deferred today Supporting Subjective Information Below: Past Surgical History: PAST SURGICAL HISTORY Procedure Laterality Date - HEMORRHOIDAL Medications: Current Outpatient Prescriptions: ACETAMINOPHEN (TYLENOL ORAL) Take 1,000 mg by mouth twice daily. lisinopril 20 mg tablet Take 20 mg by mouth once daily. Currently out of medication No current facility-administered medications for this visit. Allergies: Review of patient's allergies indicates no known allergies. ROS: General (negative for fatigue, malaise, weight loss/gain) HEENT (negative for headache, earache, recent vision changes, sinus pain, sore throat) Respiratory (no recent shortness of breath, hemoptysis) CV (negative for chest tightness, palpitations) Musculoskeletal (see HPI) Psych (no depression, anxiety) This note was partially generated using Solexant voice recognition system, and there may be some incorrect words, spellings, and punctuation that were not noted in checking the note before saving. Radha Smith PA-C Referring Provider: RADHA MSITH) [[id number]] Allergies As of Date: 01/27/2018 (No Known Allergies) Date Reviewed: 01/27/2018 Reviewed by: Angela Vega RN - Fully Assessed Reason for Visit: Recheck [92] Cmt: 3 weeks post visit left shoulder pain Primary Visit Diagnosis:Tear of left rotator cuff, unspecified tear extent [M75.102] Other Visit Diagnosis:Chronic left shoulder pain [M25.512, G89.29] Order(s):MRI SHOULDER WO [facility] [[id number]] Order #: [id number] FUTURE Prescriptions as of 01/27/2018 Sig: TYLENOL ORAL Take 1,000 mg by mouth twice * * LISINOPRIL 20 MG TABLET Take 20 mg by mouth once clarence* Medication notes this encounter LISINOPRIL 20 MG TABLET >> Angela Vega RN 01/27/2018 9:45 AM >> ANGELA VEGA RN ThuJan 27, 2018 9:45 AM He still has not refilled. Problem List As Of Date 01/27/2018 Noted Resolved Hematuria [R31.9] INVALID FOR* Right flank pain [R10.9] INVALID FOR* Letter Text Anh Flower Date of - 1960 [facility] Radha Smith PA-C Department of Orthopaedic Surgery [address] [place] [address] Office: [phone] 01/27/2018 RE: Anh Flower [id number] To Whom It May Concern: I saw Anh Flower in the Department of Orthopaedic Surgery at [facility] for follow-up of his left shoulder injury. Based on physical examination and medical assessment, I feel Anh Flower may return to work with the following restrictions:No lifting, pushing or pulling with left arm as of 01/26/18, he will be reevaluated in 3 weeks. If you have any questions or require additional information, please do not hesitate to contact my office. Sincerely, Radha Smith PA-C Encounter Status:Closed by RADHA SMITH PA-C on 01/27/18 CNCO Observed: 01/11/2018 Status: COMPLETED Source: BOYCE 12:00 AM [facility] REPOSITORY Letter Text Anh Flower Date [facility] - 1960 [facility] [id number] Bishop Merchant M.D. Department of Orthopaedic Surgery [address] [place] [address] Office: [phone] 01/11/2018 RE: Anh Flower [id number] To Whom It May Concern: I saw Anh Flower in the Department of Orthopaedic Surgery at [facility] for follow-up of his left shoulder injury. Based on physical examination and medical assessment, I feel Anh Flower may return to work with the following restrictions:No lifting, pushing or pulling with left arm as of 01/11/18, he will be reevaluated in 3 weeks. If you have any questions or require additional information, please do not hesitate to contact my office. Sincerely, Radha Smith PA-C PROGRESS Observed: 01/06/2018 Status: COMPLETED Source: BOYCE 2:48 PM [facility] REPOSITORY HNO ID: [id number] Author: Radha Smith (Pa) Service: (none) Author Type: Physician [employer] Faculty Member Type: Progress Notes Filed: 01/06/2018 5:01 PM Note Text: Radha Smith PA-C Department of Orthopaedics Orthopaedics [address] [facility] [address] [address] Dept: [phone] Dept January 06, 2018 CHIEF COMPLAINT: New Patient (Left shoulder pain) HPI: Mr. Anh Flower is a 57 year old male. Patient presents with left shoulder pain after an injury at work on February 19, 2017. Patient was lifting up a large garage door at work when he felt a pop in his left shoulder, patient is an employee at [employer]. He tells me that he informed his employee of his injury and was receiving physical therapy treatments at work about one time a week. Therapy treatments consisted of icing and massage. Patient states that he was shoveling his driveway shortly after his work injury and exacerbated the left shoulder pain. He tells me his employer will no longer covering the injury under worker's compensation because he had an additional injury while shoveling snow. Patient was on light duty for some time at work, he tells me that his employer sent him home and is no longer offering him light duty. Patient presents today with an almost 1 year history of left shoulder pain that is worse with any type of overhead movement or activity. Pain is an anterior 6 out of 10 sharpness. Patient notes that the shoulder pain is causing him difficulties at work as he is unable to lift. Patient also complains that the shoulder pain is interfering with his ability to sleep. Patient has been taking Tylenol as needed for pain. Patient is right-hand dominant. Patient's primary language is Palauan, he was offered an ui designer phone but refused, an ui designer was scheduled but did not show for this appointment. Patient's son presents with him, his son Prabhjot assisted in obtaining some of the medical history. ASSESSMENT: M75.102 Tear of left rotator cuff, unspecified tear extent (primary encounter diagnosis) M25.512 Acute pain of left shoulder PLAN: Patient's x-ray and physical exam is consistent with rotator cuff pathology. Patient will like to proceed with corticosteroid injection today to see if that alleviates some of her shoulder pain. Patient was also provided with a handout of rotator cuff strengthening exercises, the handout was printed in Palauan. Patient has hypertension and his blood pressure appears to be somewhat elevated at this visit. I do not feel that an oral anti-inflammatory would be appropriate for him at this time. FOLLOW UP INSTRUCTIONS: In 3-4 weeks or as needed Mr. Anh Flower was advised as to contrast therapies and/or to take analgesics/anti-inflammatories as needed and all contraindications were reviewed. OBJECTIVE: Mr. Anh Flower is a pleasant 57 year old in no apparent distress. Gen:BP 166/99 Ht 5' 5 (1.65m) Wt 165 lb 9.6 oz (75.1kg) BMI 27.56 kg/(m2). nl development, non obese, no deformities ENT: Normocephalic, normal hearing, moist mucosa CV: Pulses:Radial= 2+ and symmetric, capillary refill < 2 secs, no peripheral edema/varicosities Skin: no rash, bruising or lesions. Good turgor. Psych: cooperative and appropriate, alert and oriented x 3, good mood and affect. Musculoskeletal: Supple range of motion of the cervical spine without pain. Spurling signs are negative. No atrophy of the deltoid and shoulder musculature. Left shoulder is nontender to palpation over the SC joint, clavicle and AC joint. No tenderness to palpation over the posterior shoulder or anterior lateral corner of the shoulder and greater tuberosity. No pain on palpation at the bicipital groove and coracoid. Active range of motion is 90? of forward elevation, 45? external rotation, and internal rotation to the low lumbar spine. Passive range of motion is 150?, 45?, respectively. No laxity with anterior and posterior stress. Positive Neer and positive Thompson impingement signs. 4/5 strength with supraspinatus, 5/5 strength with infraspinatus and subscapularis. Sensation is intact in the axillary, radial, median and ulnar nerve distribution Procedure note: The risk, benefits and alternatives of injection and no injection therapy were discussed. The patient consented for an injection. Time out was conducted. The injection site was prepped with a Chlorhexadine swab. The left Subacromial joint was injected with a 25 gauge needle with 1 cc Celestone (6 mg), and 5 cc Marcaine 0.5%. The injection site was then dressed with a bandaid. The patient tolerated the injection well. The patient was instructed to call the office if any adverse local effects occurred or any if any questions or concerns arise. Radha Smith PA-C IMAGING: IMPRESSION: 1. ?No acute bony process. 2. ?Radiographic changes which can be seen in association with rotator cuff tendonopathy/tear. 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: AZEEM ? Transcribe Date/Time: Dec 14 2017 ?4:26P Dictated by : SUSAN VALDES MD This examination was interpreted and the report reviewed and electronically signed by: SUSAN VALDES MD on Dec 14 2017 ?4:26PM ?EST Results-Findings * * *Final Report* * * DATE OF EXAM: Dec 14 2017 ?4:21PM ? WOX ? 5252 ?- ?XR SHLDR >/=3V AP/VIVIAN AP/OTHR LT ?/ PROCEDURE REASON: Pain in left shoulder ?? ? * * * * Physician Interpretation * * * * ?HISTORY: Left shoulder pain COMPARISON: There are no prior relevant examinations available for comparison. RESULT: 3 views of the left shoulder show no acute osseous, articular or soft tissue abnormality. There is degenerative change of the left AC joint with periarticular osteophytosis and mild inferior projecting spurs. ?There are bony reactive changes of the greater tuberosity. ?These findings can be seen in association with rotator cuff tendonopathy/tear. Glenohumeral joint is grossly unremarkable. The visualized lung is clear. Supporting Subjective Information Below: Past Medical History: PAST MEDICAL HISTORY Diagnosis Date - Essential hypertension Past Surgical History: PAST SURGICAL HISTORY Procedure Laterality Date - HEMORRHOIDAL Family History: FAMILY HISTORY Problem Relation Age of Onset - Diabetes Mother Social History:Social History Marital status: Spouse name: Years of education: Number of children: Social History Main Topics Smoking status: Never Smoker Smokeless status: Never Used Alcohol use: No Drug use: No Medications: Current Outpatient Prescriptions: lisinopril 20 mg tablet Take 20 mg by mouth once daily. Currently out of medication No current facility-administered medications for this visit. Allergies: Review of patient's allergies indicates no known allergies. ROS: General (negative for fatigue, malaise, weight loss/gain) HEENT (negative for headache, earache, recent vision changes, sinus pain, sore throat) Respiratory (no recent shortness of breath, hemoptysis) CV (negative for chest tightness, palpitations) Musculoskeletal (see HPI) Psych (no depression, anxiety) This note was partially generated using Solexant voice recognition system, and there may be some incorrect words, spellings, and punctuation that were not noted in checking the note before saving. 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 Works at [employer]. States he has to lift heavy doors at work all time. 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 Patient states 3 weeks ago he was shoveling snow his shoulder pain his pain increased. Taking Tylenol for the pain and helps some. Patient had x-ray done on 12/14/17. Patient states his work has light duty and had worked until last week and sent him home until he has a note to return to work. Kp Prabhjot interpreting for his father. PROGRESS Observed: 12/30/2017 Status: COMPLETED Source: BOYCE 3:22 PM [facility] REPOSITORY HNO ID: [id number] Author: Ke Cristina Service: (none) Author Type: Physician Type: Progress Notes Filed: 12/30/2017 4:08 PM Note Text: Patient presents with: Diarrhea: since last week HPI: Diarrhea for the last 5 days. Small amount of stool comes out every 2 hours. Positive symptoms: Diarrhea, Negative symptoms: fever, nausea, upset stomach, blood in the stool, incontinence, sick contacts OTC: pepto bismol. Denies supplement use. PAST MEDICAL HISTORY Diagnosis Date - NEGATIVE MEDICAL HISTORY PAST SURGICAL HISTORY Procedure Laterality Date - HEMORRHOIDAL Denies hypertension. Reports being out of lisinopril. MEDICATIONS: Current Outpatient Prescriptions: lisinopril 20 mg tablet Take 20 mg by mouth once daily. No current facility-administered medications for this visit. ALLERGIES: ALLERGIES No Known Allergies VITALS: BP 148/90 Pulse 76 Temp 36.6 ?C (97.8 ?F) (Tympanic) Resp 16 PHYSICAL EXAM: GEN: Pleasant, in no acute distress. Palauan telephone ui designer used. HEENT: PERRL, EOMI, conjunctiva clear Throat: moist mucous membranes, no erythema, no exudate Neck: supple, no thyromegaly, no lymphadenopathy HEART: regular rate and rhythm, no murmurs LUNGS: clear to auscultation, no wheezes or crackles, no increased WOB ABD: Soft, non-distended, non-tender, no masses ASSESSMENT/PLAN: 1. Diarrhea, unspecified type - ICD9: 787.91, ICD10: R19.7 Continue supportive care. Seek re-evaluation for failure to improve, abdominal pain, melena, hematochezia, or dizziness. Ke Cristina MD ALLERGIES ALLERGIES DATE TYPE / CODE NAME / CODE REACTION SEVERITY SOURCE 11/08/2018 Drug No Known Unknown [facility] Allergy/416 Allergies/H35349 Hospital 873539(SNOM 0388(RXNORM) Repository ED CT) Drug NO KNOWN [facility] Class/14291 ALLERGIES [facility] 1003(SNOMED Repository CT) ENCOUNTERS ENCOUNTERS ADMIT/DISCHARGE ACCOUNT NUMBER ADMITTING ENCOUNTER LOCATION SOURCE CLASS 11/30/2018/12/01/19 [id number] Ambulatory [place] [facility] [place] Repository 11/08/2018/11/09/20 [id number] [place], Ambulatory [place] [address] ding:PCURoom Repository : [id number]: 1 11/08/2018 [id number] [place], Ambulatory BMSBuilding: [place] [facility] BMS.[facility] Repository 11/08/2018 [id number] Josefinaeletssulaiman, Ambulatory BMSBuilding: [place] BMS.[facility] Repository 11/08/2018 [id number] Ambulatory BMSBuilding: [facility] Repository 11/08/2018/11/09/20 [id number] Ambulatory [address] [place] Repository 10/08/2018/10/11/20 [id number] Ambulatory [address] [place] Repository 09/21/2018/09/21/20 [id number] Ambulatory [address] [place] Repository 09/21/2018/09/22/20 [id number] Ambulatory [address] [place] Repository 07/21/2018/07/22/20 [id number] Ambulatory [address] [place] Repository 06/21/2018/06/22/20 [id number] Ambulatory [place] [facility] [place] Repository 04/08/2018/04/13/20 [id number] Ambulatory [address] [place] Repository 02/22/2018/02/23/20 [id number] Emergency BBuilding:[address] Repository 02/22/2018/02/23/20 [id number] Ambulatory [place] [facility] [place] Repository 02/19/2018/02/20/20 [id number] Ambulatory [place] [facility] [place] Repository 02/19/2018/02/20/20 [id number] Ambulatory [place] [facility] [place] Repository 02/17/2018/02/19/20 [id number] Ambulatory [place] [facility] [place] Repository 02/09/2018/02/11/20 [id number] Ambulatory [place] [facility] [place] Repository 01/27/2018/02/02/20 [id number] Ambulatory [place] [facility] [place] Repository 01/27/2018/02/02/20 [id number] Ambulatory [address] [place] Repository 01/06/2018/01/12/[id number] Repository 12/30/2017/12/31/[id number] Repository PAYERS PAYERS ENCOUNTER GUARANTOR PAYER SUBSCRIBER SOURCE 11/08/2018 ANH A Primary ANH A [place] [id number] S Insurance:ANTHEMPolicy QUINTEROSDOB: [facility] Number: [id number] [id number] Repository [address]Dgu: ([phone]) Date:1912-66-43[phone] () [id number], [place] [address]DP: 11/08/2018 Secondary NOT GIVENUNK [place] Insurance:SELF PAY [facility] Number: Effective Repository Date:2018-11-08 11/08/2018 ANH A Primary ANH A [place] [id number] S Insurance:ANTHEMPolicy QUINTEROSDOB: [facility] Number: [id number], [place] [id number] Repository 10759Dpl: ([phone]) Date:8355-08-20[phone] () [place]20[place], [place] [address]BA: 11/08/2018 Secondary NOT GIVENUNK [place] Insurance:SELF PAY [facility] Number: Effective Repository Date:2018-11-08 11/08/2018 ANH A Primary ANH A [place] [id number] S Insurance:ANTHEMPolicy QUINTEROSDOB: [facility] Number: [id number], [place] [id number] Repository [address]Voa: ([phone]) Date:7534-18-61[phone] () [place], [place] [address]SD: 11/08/2018 Secondary NOT GIVENUNK [place] Insurance:SELF PAY [facility] Number: Effective Repository Date:2018-11-08 11/08/2018 ANH A Primary ANH A [place] [id number] S Insurance:ANTHEMPolicy QUINTEROSDOB: [facility] Number: [id number] [place], [place] [id number] Repository [address]Rnk: ([phone]) Date:8221-39-21[phone] () DONTE LEMONS [address]LK: 11/08/2018 Secondary NOT GIVENUNK [place] Insurance:SELF PAY [facility] Number: Effective Repository Date:2018-11-08 02/22/[address] [facility] QUINTEROSDOB: Insurance:ANTHEM KEYANNA QUINTEROSDOB: [facility] [id number] Repository [facility] Number: [address] [place], [place] [id number] [place], [place] [address]Kxt: ([phone]) Date:2018-02-22 98612Vxo: () 9712-01-22Qdrt [phone] Name:CARLI OVERTON ()Tel: [phone] Goncalves [phone] () [address]14[address]IR:
== END 2018-11-09 10:41 | disposition home or self-care (01) ==
LOC: ED 16:40 → PCU 17:14
PROVIDERS: Family Medicine; Admitting Provider Internal Medicine; Emergency Provider Emergency Medicine; Referring Provider Internal Medicine; Visit Provider Internal Medicine
DX: R07.89 Other chest pain (principal); I10 Essential (primary) hypertension; Z79.899 Other long term (current) drug therapy; R06.00 Dyspnea, unspecified; R42 Dizziness and giddiness; E78.5 Hyperlipidemia, unspecified; R07.2 Precordial pain; Z87.891 Personal history of nicotine dependence
CPT/HCPCS: 36415; 71046; 78452; 80048; 84484; 85025; 85610; 85730; 93005; 93017; 99218; 99285; A9500; A4216; G0378